=== PATIENT | female | born 1955 | race Two or more races ===

== ENCOUNTER 2025-01-19 04:24 | Inpatient (IN) | payer OTHER, MEDICAID ==
[~2025-01-19] VITALS: Ht 165.1 cm; Wt 78.5 kg
--- NOTE | 2025-01-19 04:47 | ED.PDOC ---
GI ASSESSMENT HPI Comments 69-year-old female who came to ER for GI bleed. Patient is status post hernia repair. States for the past 3 weeks, been having intermittent episodes of cramping abdominal pain, with bouts of nausea and dry heaving. States she has been constipated recently, in her bowel movement 4 days ago revealed blackish s tools. She took some laxatives to relieve her constipation, and her bowel movement last night still revealed blackish stools. Patient does have history of anemia, and she is concerned that her hemoglobin levels might be low again. Chief Complaint: GI Bleed Time Seen by MD: 04:46 Reviewed Notes: Nurses Notes Allergies: Coded Allergies: NO KNOWN ALLERGIES (Unverified , 01/19/25) Information Source: Patient Mode of Arrival: Ambulatory Timing: Hours Duration: Since onset Quality: Aching Vomitus: None Stool: Black Severity: Moderate Recent Hx of: Abdominal Surgery Pain Location: Epigastric Associated sign and symptoms: Nausea, Melena, Abdominal Pain Past Medical History PAST MEDICAL HISTORY: HTN Surgical History: Hernia Repair GENETIC COUNSELOR History: Denies all GENETIC COUNSELOR Hx Family History Family History: Reviewed,noncontributory to illness Social History Smoker: Non-Smoker Alcohol: Denies ETOH Use Drugs: Denies Drug Use Lives In: Home Constitutional: denies: chills, diaphoresis, fatigue, fever, malaise, sweats, weakness, others EENTM: denies: blurred vision, double vision, ear bleeding, ear discharge, ear drainage, ear pain, ear ringing, eye pain, eye redness, hearing loss, mouth pain, mouth swelling, nasal discharge, nose bleeding, nose congestion, nose pain, photophobia, tearing, throat pain, throat swelling, voice changes, others Respiratory: denies: cough, hemoptysis, orthopnea, SOB at rest, shortness of breath, SOB with excertion, stridor, wheezing, others Cardiovascular: denies: chest pain, dizzy spells, diaphoresis, Dyspnea on exertion, edema, irregular heart beat, left arm pain, lightheadedness, palpitations, PND, syncope, others Gastrointestinal: reports: abdominal pain, melena, nausea, others (Dry heaving); denies: abdomen distended, blood streaked bowels, constipated, diarrhea, dysphagia, difficulty swallowing, hematemesis, poor appetite, poor fluid intake, rectal bleeding, rectal pain, vomiting Genitourinary: denies: abnormal vagina bleeding, burning, dyspareunia, dysuria, flank pain, frequency, hematuria, incontinence, pain, , vagina discharge, urgency, others Neurological: denies: dizziness, fainting, headache, left sided numbness, left sided weakness, numbness, paresthesia, pre-existing deficit, right sided numbness, right sided weakness, seizure, speech problems, tingling, tremors, weakness, others Musculoskeletal: denies: back pain, gout, joint pain, joint swelling, muscle pain, muscle stiffness, neck pain, others Integumetry: denies: bruises, change in color, change in hair/nails, dryness, laceration, lesions, lumps, rash, wounds, others Allergic/Immunocompromised: denies: Difficulty Healing, Frequent Infections, Hives, Itching, others Hematologic/Lymphatic: denies: anemia, blood clots, easy bleeding, easy bruising, swollen glands, others Endocrine: denies: excessive hunger, excessive sweating, excessive thirst, excessive urination, flushing, intolerance to cold, intolerance to heat, unexplained weight gain, unexplained weight loss, others Psychiatric: denies: anxiety, bipolar disorder, depression, hopeless, panic disorder, schizophrenia, sleepless, suicidal, others Physical Exam General Appearance: No Apparent Distress, Normal HEENT: Normal ENT Inspection, Pharynx Normal, TMs Normal Neck: Full Range of Motion, Non-Tender, Normal, Normal Inspection Respiratory: Chest Non-Tender, Lungs Clear, No Accessory Muscle Use, No Respiratory Distress, Normal Breath Sounds Cardiovascular: No Edema, No JVD, No Murmur, No Gallop, Normal Peripheral Pulses, Regular Rate/Rhythm Breast Exam: Deferred Gastrointestinal: No Organomegaly, Non Tender, No Pulsatile Mass, Normal Bowel Sounds, Soft Genitalia: Deferred Pelvic: Deferred Rectal: Deferred Extremities: No calf tenderness, Normal capillary refill, Normal inspection, Normal range of motion, Non-tender, No pedal edema Musculoskeletal : Apperance: Normal Neurologic: Alert, supervisor composing room II-XII nml as Tested, No Motor Deficits, Normal Affect, Normal Mood, No Sensory Deficits Cerebellar Function: Normal Reflexes: Normal Skin: Dry, Normal Color, Warm Lymphatic: No Adenopathy Was a procedure done? Was a procedure done?: No GI differential Dx Differential Diagnosis: Diverticular disease, Gastritis/PUD, Gastroenteritis, GI hemorrhage, Hernia, UTI X-Ray, Labs, Meds, VS Vital Signs Date Time Temp Pulse Resp B/P (MAP) Pulse Ox O2 Delivery O2 Flow Rate FiO2 01/19/25 07:33 97.9 70 18 131/82 (98) 95 97.9 01/19/25 05:45 Room Air* 0 21 01/19/25 05:30 97.9 88 18 142/83 (102) 95 97.9 01/19/25 04:26 97.6 81 18 145/82 95 97.6 Lab Test 01/19/25 06:16 01/19/25 05:06 Range/Units Urine Color Light-yellow Yellow Urine Clarity Clear Clear Urine pH 6.5 5.0-9.0 Urine Specific [place] 1.010 1.001-1.035 Urine Protein Negative Negative Urine Ketones Negative Negative Urine Blood Negative Negative /uL Urine Nitrite Negative Negative Urine Bilirubin Negative Negative Urine Urobilinogen Normal Negative mg/dL Urine Leukocyte Esterase Negative Negative /uL Urine RBC <1 0 - 4 /hpf Urine Microscopic WBC 1 0-5 /HPF Urine Squamous Epithelial Cells Few <5 /hpf Urine Bacteria None seen None Seen /hpf Urine Glucose Normal Normal mg/dL White Blood Count 8.0 4.4-10.8 10^3/uL Red Blood Count 4.44 4.0-5.20 10^6/uL Hemoglobin 14.0 12.2-16.2 g/dL Hematocrit 40.2 36.0-46.0 % Mean Corpuscular Volume 90.6 80.0-100.0 fL Mean Corpuscular Hemoglobin 31.6 28.0-32.0 pg Mean Corpuscular Hemoglobin Concent 34.9 32.0-36.0 g/dL Red Cell Distribution Width 13.0 11.8-14.3 % Platelet Count 324 140-450 10^3/uL Mean Platelet Volume 7.7 6.9-10.8 fL Neutrophils (%) (Auto) 72.2 37.0-80.0 % Lymphocytes (%) (Auto) 18.4 10.0-50.0 % Monocytes (%) (Auto) 7.6 0.0-12.0 % Eosinophils (%) (Auto) 1.2 0.0-7.0 % Basophils (%) (Auto) 0.6 0.0-2.0 % Neutrophils # (Auto) 5.8 1.6-8.6 10 ^3/uL Lymphocytes # (Auto) 1.5 0.4-5.4 10 ^3/uL Monocytes # (Auto) 0.6 0-1.3 10 ^3/uL Eosinophils # (Auto) 0.1 0-0.8 10 ^3/uL Basophils # (Auto) 0 0-0.2 10 ^3/uL Nucleated Red Blood Cells 0.0 % Prothrombin Time 10.5 9.3-11.8 sec Prothrombin Time INR 0.99 0.9-1.15 Activated Partial Thromboplast Time 26.0 24.5-34.5 SEC Sodium Level 139 136-145 mmol/L Potassium Level 3.2 L 3.5-5.1 mmol/L Chloride Level 101 98-107 mmol/L Carbon Dioxide Level 29 20-31 mmol/L Anion Gap 9 5-15 Blood Urea Nitrogen 15 9-23 mg/dL Creatinine 0.58 0.550-1.02 mg/dL Glomerular Filtration Rate Calc 99 >90 mL/min BUN/Creatinine Ratio 25.9 H 10.0-20.0 Serum Glucose 107 H 74-106 mg/dL Calcium Level 9.4 8.7-10.4 mg/dL Total Bilirubin 0.3 0.2-1.0 mg/dL Aspartate Amino Transferase (AST) 13 13-40 U/L Alanine Aminotransferase (ALT) 14 7-40 U/L Alkaline Phosphatase 89 46-116 U/L Total Protein 7.1 5.7-8.2 g/dL Albumin 4.6 3.2-4.8 g/dL Lipase 26 12-53 U/L Current Medications Medications (Trade) Dose Ordered Sig/Lilian Route Start Time Stop Time Status Last Admin Sodium Chloride 1,000 ml @ 1,000 mls/hr Q1H ONCE IVB 01/19/25 04:45 01/19/25 05:44 DC 01/19/25 05:25 X-Ray, Labs, Meds, VS Comment This 70-year-old male presents to emergency room secondary to abdominal distention and a history of GI bleeding. On today's CT, she is noted to have a 3.6 x 3.4 x 3.5 cm questionable mass at the cecum with cecal inflammation. I am concerned the patient has cancer. Considering the severity of her symptoms and the size of the mass, I will admit the patient further workup and management. Time of 1ST Reevaluation: 04:37 Reevaluation 1ST: Unchanged Patient Education/Counseling: Diagnosis, Treatment Family Education/Counseling: No Family Present SEPSIS Sepsis Screen Date sepsis recognized/suspect: Jan 19, 2025 Time Sepsis recognized/suspect: 425 Recent Procedure: No On Antibiotic Therapy: No Respiratory Rate >20: No Heart Rate >90: No Temp<36 C (96.8 F) or >38.3 C: No SBP <90 or MAP <65 mmHG: No New Acute Mental Status Change: No Is the patient on CPAP, BIPAP,: No Physician Orders Ct Ab Pel With Iv Con Only (01/19/25 04:41) Vital Signs Date Time Temp Pulse Resp B/P (MAP) Pulse Ox O2 Delivery O2 Flow Rate FiO2 01/19/25 07:33 97.9 70 18 131/82 (98) 95 97.9 01/19/25 05:45 Room Air* 0 21 01/19/25 05:30 97.9 88 18 142/83 (102) 95 97.9 01/19/25 04:26 97.6 81 18 145/82 95 97.6 Laboratory Tests Test 01/19/25 05:06 White Blood Count 8.0 10^3/uL (4.4-10.8) Medications Medications Dose Ordered Sig/Lilian Route Start Time Stop Time Status Last Admin Dose Admin Sodium Chloride 1,000 ml @ 1,000 mls/hr Q1H ONCE IVB 01/19/25 04:45 01/19/25 05:44 DC 01/19/25 05:25 Departure 1 Departure Time of Disposition: 07:52 Impression: Primary Impression: Black stools Additional Impressions: Lower abdominal pain Cecum mass Disposition: ADMITTED INPATIENT Admit to: Med Surg Condition: Fair Critical Care Note Critical Care Time?: No Stability Stability form required: No Heart Score Heart Score: Heart Score Response (Comments) Value History N/A 0 EKG N/A 0 Age N/A 0 Risk Factors N/A 0 Troponin N/A 0 Total 0 I personally scribed for JUDSON CROSS MD ([email or web address]) on 01/19/25 at 04:47. Electronically submitted by Moreno Campbell ([email or web address]). JUDSON CROSS MD Jan 19, 2025 04:47 MINA CLANCY MD Jan 19, 2025 07:54
[2025-01-19] MEDS: SODIUM CHLORIDE 0.9% 1,000 ML IVB ONE (05:25)
[2025-01-19 05:27] LABS: Hematocrit 40.2 % (36.0-46.0); Hemoglobin 14.0 g/dL (12.2-16.2); Mean Corpuscular Hemoglobin 31.6 pg (28.0-32.0); Mean Corpuscular Volume 90.6 fL (80.0-100.0); Nucleated Red Blood Cells % 0.0 %
[2025-01-19 05:40] LABS: INR 0.99 (0.9-1.15); Partial Thromboplastin Time 26.0 SEC (24.5-34.5); Prothrombin Time 10.5 sec (9.3-11.8)
[2025-01-19 05:55] LABS: Alanine Aminotransferase 14 U/L (7-40); Albumin 4.6 g/dL (3.2-4.8); Alkaline Phosphatase 89 U/L (46-116); Anion Gap 9 (5-15); BUN/Creatinine Ratio 25.9 (10.0-20.0); Bilirubin, Total 0.3 mg/dL (0.2-1.0); Blood Urea Nitrogen 15 mg/dL (9-23); Calcium 9.4 mg/dL (8.7-10.4); Carbon Dioxide 29 mmol/L (20-31); Chloride 101 mmol/L (98-107); Glucose 107 mg/dL (74-106); Lipase 26 U/L (12-53); Potassium 3.2 mmol/L (3.5-5.1); Sodium 139 mmol/L (136-145); Total Protein 7.1 g/dL (5.7-8.2)
[2025-01-19] MEDS: IOHEXOL 300 MG/ML 100ML BOTTLE IJ ONE (06:07)
[2025-01-19 06:23] LABS: Urine Protein, UAD Negative (Negative)
--- NOTE | 2025-01-19 07:11 | DVH ---
CT CT AB PEL WITH IV CON ONLY INDICATION: lower abd pain, melena EXAM DATE: 01/19/2025 06:28 AM COMPARISON: None RADIATION DOSE: CTDIvol: 10 mGy, DLP: 586 mGy*cm PROCEDURE: Helical CT images were obtained of the abdomen and pelvis with IV contrast Sagittal and co gareme reconstructions are provided. ORAL CONTRAST: None. ADDITIONAL IMAGES / REFORMATS: None All CT s cans at this medical facility are performed using dose modulation techniques as appropriate to a perf ormed exam including the following: Automated exposure control was utilized; adjustment of the MA and /or KV according to patient size; and use of iterative reconstruction technique. FINDINGS: LUNG BASE: 4 mm nodule at the lingula. LIVER: Normal. GALLBLADDER AND BILIARY TREE: No calcified gallstones. Normal caliber wall. No intra- or extrahepatic biliary ductal dilation. PANCREAS: Normal. SPLEEN: Normal. BOWEL: 3.6 x 3.4 x 3.5 cm questionable mass at the cecum with cecal inflammation. ADRENALS: Normal. KIDNEYS AND URETER: Mild right hydronephrosis without stone seen. BLADDER: Normal. REPRODUCTIVE ORGANS: Absent uterus. LYMPH NODES:No lymphadenopathy. PERITONEUM: No ascites or free air. No other fluid collection. VESSELS: Scattered atherosclerotic calcifications are noted. RETROPERITONEUM: Normal. ABDOMINAL WALL: Normal. BONES: Scattered osseous degenerative changes are noted. IMPRESSION: 3.6 x 3.4 x 3.5 cm questionable mass at the cecum with cecal inflammation. Mild right hydronephrosis without stone seen.
[2025-01-19] MEDS: MORPHINE SULFATE 4 MG/ML SYR/VIAL IV ONE (07:21)
[2025-01-19] MEDS: ONDANSETRON HCL 4 MG/2 ML VIAL IV ONE (07:21)
--- NOTE | 2025-01-19 09:35 | DVHHPRES ---
History of Present Illness Resident Creating Document: AYLIN TIRADO RESIDENT History of Present Illness Ms Carrasquillo is a 69-year-old female with hiatal hernia repair 1 year back, SLE in remission, hypertension, hyperlipidemia fibromyalgia, degenerative disc disease and chronic back pain, neuropathic, who presented to the ER with a chief complaint of semi-solid tarry black stools for the past 4 days along with weight loss for the past 3 weeks. Patient reports lower abdominal diffuse pain for the past 3 weeks, crampy in nature, she also had a urinary infection 2 weeks back, patient thought it was a flu infection, but she developed generalized weakness, fatigue, low appetite and weight loss of about 8 lb in the past 3 weeks. She has a history of chronic constipation, reports noticing tarry black stools for the past 4-5 days, she reports low-grade fever and chills 1 week back. No recent travel history or sick contacts Patient had hiatal hernia surgery 1 year back with [facility] [place] Last colonoscopy was April 20, 2023, 1 8 mm polyp in the ascending colon, 1 3 mm polyp in the rectum, nonbleeding internal hemorrhoids, patient is unaware of pathology results Past medical history: SLE in remission, hypertension, hyperlipidemia fibromyalgia, degenerative disc disease and chronic back pain, neuropathic pain Past surgical history: Hiatal hernia repair 1 year back Home medications: Atorvastatin, hydrochlorothiazide, magnesium supplementation PCP: Dr. Henderson Social history: Lives with , Quit smoking at the age of 52, previously smoked 1 cigarette every other day, quit drinking but previously would drink every night, no history of drug use Family history: Colon cancer diagnosed in father at the age of 85, father at the age of 86 due to metastatic colon cancer Patient seen and examined in ER, rectal exam performed, internal hemorrhoids, nonbleeding, stool was dark brown, sent to lab for stool occult. Smoke: Quit ALCOHOL: none Drugs: None Lives: with Family Review of Systems Constitutional: Yes: Fever, Chills, Weakness, Malaise Gastrointestinal: Abdominal Pain, Constipation, Melena Allergies: Coded Allergies: NO KNOWN ALLERGIES (Unverified , 01/19/25) Exam Vital Signs Vital Signs Date Time Temp Pulse Resp B/P (MAP) Pulse Ox O2 Delivery O2 Flow Rate FiO2 01/19/25 07:33 97.9 70 18 131/82 (98) 95 97.9 01/19/25 05:45 Room Air* 0 21 Exam Overweight female patient lying comfortably in the bed, patient has a bit anxious General: Overweight, afebrile, palor, mucosae are moist Cardiovascular: Regular S1 and S2. No murmurs, gallops or rubs. No JVD elevation. No pedal edema Respiratory: Normal B/L air entry on room air. Clear lung sounds on auscultation Abdomen: Soft, lower abdominal tenderness, nondistended, normoactive bowel sounds, no rebound tenderness, no organomegaly, no masses. Rectal exam performed with nurse Alfred as wreath machine tender, internal hemorrhoids felt, nonbleeding, dark brown stool sent for stool occult, no masses felt, no active bleeding. Genitourinary: Deferred MSK/skin: Mobilizes 4 limbs. Skin is dry and warm Neurological: No motor, no sensitive deficits, normal speech. Pupils are isocoric and reactive. Psych/Mental Status: A/Ox3 Labs/Xrays Labs Test 01/19/25 06:16 01/19/25 05:06 Range/Units Urine Color Light-yellow Yellow Urine Clarity Clear Clear Urine pH 6.5 5.0-9.0 Urine Specific [place] 1.010 1.001-1.035 Urine Protein Negative Negative Urine Ketones Negative Negative Urine Blood Negative Negative /uL Urine Nitrite Negative Negative Urine Bilirubin Negative Negative Urine Urobilinogen Normal Negative mg/dL Urine Leukocyte Esterase Negative Negative /uL Urine RBC <1 0 - 4 /hpf Urine Microscopic WBC 1 0-5 /HPF Urine Squamous Epithelial Cells Few <5 /hpf Urine Bacteria None seen None Seen /hpf Urine Glucose Normal Normal mg/dL White Blood Count 8.0 4.4-10.8 10^3/uL Red Blood Count 4.44 4.0-5.20 10^6/uL Hemoglobin 14.0 12.2-16.2 g/dL Hematocrit 40.2 36.0-46.0 % Mean Corpuscular Volume 90.6 80.0-100.0 fL Mean Corpuscular Hemoglobin 31.6 28.0-32.0 pg Mean Corpuscular Hemoglobin Concent 34.9 32.0-36.0 g/dL Red Cell Distribution Width 13.0 11.8-14.3 % Platelet Count 324 140-450 10^3/uL Mean Platelet Volume 7.7 6.9-10.8 fL Neutrophils (%) (Auto) 72.2 37.0-80.0 % Lymphocytes (%) (Auto) 18.4 10.0-50.0 % Monocytes (%) (Auto) 7.6 0.0-12.0 % Eosinophils (%) (Auto) 1.2 0.0-7.0 % Basophils (%) (Auto) 0.6 0.0-2.0 % Neutrophils # (Auto) 5.8 1.6-8.6 10 ^3/uL Lymphocytes # (Auto) 1.5 0.4-5.4 10 ^3/uL Monocytes # (Auto) 0.6 0-1.3 10 ^3/uL Eosinophils # (Auto) 0.1 0-0.8 10 ^3/uL Basophils # (Auto) 0 0-0.2 10 ^3/uL Nucleated Red Blood Cells 0.0 % Prothrombin Time 10.5 9.3-11.8 sec Prothrombin Time INR 0.99 0.9-1.15 Activated Partial Thromboplast Time 26.0 24.5-34.5 SEC Sodium Level 139 136-145 mmol/L Potassium Level 3.2 L 3.5-5.1 mmol/L Chloride Level 101 98-107 mmol/L Carbon Dioxide Level 29 20-31 mmol/L Anion Gap 9 5-15 Blood Urea Nitrogen 15 9-23 mg/dL Creatinine 0.58 0.550-1.02 mg/dL Glomerular Filtration Rate Calc 99 >90 mL/min BUN/Creatinine Ratio 25.9 H 10.0-20.0 Serum Glucose 107 H 74-106 mg/dL Calcium Level 9.4 8.7-10.4 mg/dL Total Bilirubin 0.3 0.2-1.0 mg/dL Aspartate Amino Transferase (AST) 13 13-40 U/L Alanine Aminotransferase (ALT) 14 7-40 U/L Alkaline Phosphatase 89 46-116 U/L Total Protein 7.1 5.7-8.2 g/dL Albumin 4.6 3.2-4.8 g/dL Lipase 26 12-53 U/L SEPSIS Sepsis Screen Date sepsis recognized/suspect: Jan 19, 2025 Time Sepsis recognized/suspect: 425 Recent Procedure: No On Antibiotic Therapy: No Respiratory Rate >20: No Heart Rate >90: No Temp<36 C (96.8 F) or >38.3 C: No SBP <90 or MAP <65 mmHG: No New Acute Mental Status Change: No Is the patient on CPAP, BIPAP,: No Physician Orders Ct Ab Pel With Iv Con Only (01/19/25 04:41) Vital Signs Date Time Temp Pulse Resp B/P (MAP) Pulse Ox O2 Delivery O2 Flow Rate FiO2 01/19/25 07:33 97.9 70 18 131/82 (98) 95 97.9 01/19/25 05:45 Room Air* 0 21 01/19/25 05:30 97.9 88 18 142/83 (102) 95 97.9 01/19/25 04:26 97.6 81 18 145/82 95 97.6 Laboratory Tests Test 01/19/25 05:06 White Blood Count 8.0 10^3/uL (4.4-10.8) Medications Medications Dose Ordered Sig/Lilian Route Start Time Stop Time Status Last Admin Dose Admin Sodium Chloride 1,000 ml @ 1,000 mls/hr Q1H ONCE IVB 01/19/25 04:45 01/19/25 05:44 DC 01/19/25 05:25 1,000 MLS/HR Assessment/Plan Assessment/Plan Ruled out active GI bleed ? Cecal mass 3x3cm Nonbleeding internal hemorrhoids history of descending colon 8 mm and rectal 3 mm polyp-path results unknown Unintentional weight loss Generalized weakness Chronic constipation CT abdomen with IV contrast showed 3.6 x 3.4 x 3.5 cm questionable mass at the cecum with cecal inflammation. GI consultation pending IV Protonix b.i.d. NPO IV NS 1 L at 75 cc Right-sided hydronephrosis CT abdomen with IV contrast showed Mild right hydronephrosis without stone seen. 1 L IV NS 0.9 at 75 cc Monitor kidney function Hypertension Holding patient's hydrochlorothiazide at this time given GI bleed History of dyslipidemia Resume home medication atorvastatin History of fibromyalgia History of degenerative disc disease and neuropathic pain History of SLE-in remission Monitor Lovenox 40 mg sc daily Plan discussed with patient in ER, all questions have been answered Goals of care discussed for more than 18 minutes, full code status Case discussed with Dr. Portillo Plan discussed with: Patient Date of Service: Jan 19, 2025 Billing Provider: SUSHIL PORTILLO MD Common Visit Codes: 05043-[id number] INP/OBS CARE (HIGH) AYLIN TIRADO Jan 19, 2025 09:35 SUSHIL PORTILLO MD Jan 23, 2025 11:40
[2025-01-19] MEDS: SODIUM CHLORIDE 0.9% 1,000 ML IV ONE (09:45)
[2025-01-19] MEDS: PANTOPRAZOLE 40 MG/10 ML VIAL INJ IV ONE (09:50)
[2025-01-19] MEDS: PANTOPRAZOLE 40 MG/10 ML VIAL INJ IV SCH (09:50)
[2025-01-19] MEDS ORDERED: MORPHINE SULFATE INJ 2 MG/ml SYRG IV PRN (10:00)
[2025-01-19] MEDS ORDERED: ACETAMINOPHEN 500 MG TAB or CAP PO PRN (10:00)
[2025-01-19] MEDS ORDERED: HYDROcodone-ACET 5/325MG TAB PO PRN (10:00)
[2025-01-19 14:37] LABS: Amphetamine Screen, Urine Neg (NEGATIVE); Barbiturate Scree,Urine Neg (NEGATIVE); Benzodiazephine Screen, Urine Neg (NEGATIVE); Cannabinoid Screen, Urine Neg (NEGATIVE); Cocaine Screen, Urine Neg (NEGATIVE); Opiate Scree,Urine Neg (NEGATIVE); Phencyclidine Screen, Urine Neg (NEGATIVE)
[2025-01-19 14:46] LABS: INR 1.0 (0.9-1.15); Partial Thromboplastin Time 25.5 SEC (24.5-34.5); Prothrombin Time 10.6 sec (9.3-11.8)
[2025-01-19] MEDS: POTASSIUM CHL 20MEQ/100ML 100 ML IV ONE (15:00)
[2025-01-19 15:33] VITALS: BP 139/67; PULSE 73; RESP 18
[2025-01-19] MEDS ORDERED: CHOLTAB12 PO (15:37)
[2025-01-19] MEDS ORDERED: PHYT100T PO (15:37)
[2025-01-19] MEDS ORDERED: MAGN400T40 PO (15:37)
[2025-01-19] MEDS ORDERED: MILK1000 OR (15:37)
[2025-01-19] MEDS ORDERED: ATOR20TA PO (15:37)
[2025-01-19] MEDS ORDERED: CYAN-17 PO (15:37)
[2025-01-19] MEDS ORDERED: HYDR12.59 PO (15:37)
[2025-01-19] MEDS ORDERED: DOCU-94 PO (15:37)
[2025-01-19 17:00] VITALS: BP 126/61; PULSE 62; RESP 18; TEMP 98.8; O2SAT 96
[2025-01-19 20:00] VITALS: PULSE 76; RESP 18; O2SAT 95
[2025-01-19 21:00] VITALS: BP 119/83; PULSE 58; RESP 17; TEMP 98.1; O2SAT 95
[2025-01-20 01:00] VITALS: BP 120/69; PULSE 76; RESP 18; TEMP 99.3; O2SAT 95
[2025-01-20 05:00] VITALS: BP 120/70; PULSE 82; RESP 18; TEMP 98.4; O2SAT 94
[2025-01-20 05:28] LABS: COVID19 ANTIGEN SOFIA FIA NEGATIVE (NEGATIVE)
[2025-01-20 08:11] LABS: Hematocrit 35.9 % (36.0-46.0); Hemoglobin 12.7 g/dL (12.2-16.2); Mean Corpuscular Hemoglobin 31.9 pg (28.0-32.0); Mean Corpuscular Volume 90.1 fL (80.0-100.0); Nucleated Red Blood Cells % 0.0 %
[2025-01-20 08:25] LABS: Alanine Aminotransferase 12 U/L (7-40); Albumin 4.1 g/dL (3.2-4.8); Alkaline Phosphatase 84 U/L (46-116); Anion Gap 9 (5-15); BUN/Creatinine Ratio 17.0 (10.0-20.0); Blood Urea Nitrogen 9 mg/dL (9-23); Calcium 9.0 mg/dL (8.7-10.4); Carbon Dioxide 26 mmol/L (20-31); Chloride 105 mmol/L (98-107); Glucose 84 mg/dL (74-106); Potassium 3.5 mmol/L (3.5-5.1); Sodium 140 mmol/L (136-145); Total Protein 6.2 g/dL (5.7-8.2)
[2025-01-20 08:26] LABS: Bilirubin, Total 0.3 mg/dL (0.2-1.0)
[2025-01-20 08:40] VITALS: BP 132/74; PULSE 57; RESP 18; TEMP 97.6; O2SAT 96
[2025-01-20] MEDS: ENOXAPARIN SOD 40 MG/0.4 ML SYRINGE SC SCH (08:54)
--- NOTE | 2025-01-20 10:16 | DVHPN2 ---
Progress Note Date Seen: Jan 20, 2025 Medical Necessity Reason Pt with a Central, PICC or Fol: No Objective vital signs Vital Sign Date Time Temp Pulse Resp B/P (MAP) Pulse Ox O2 Delivery O2 Flow Rate FiO2 01/20/25 08:40 97.6 57 18 132/74 (93) 96 97.6 01/20/25 08:00 Room Air* 0 21 Total Intake and Output 01/19/25 01/19/25 01/20/25 14:59 22:59 06:59 Intake Total 0 ml 200 ml Balance 0 ml 200 ml medications Current Medications Medications Dose Ordered Sig/Lilian Route Start Time Stop Time Status Last Admin Dose Admin Pantoprazole Sodium 40 mg BID IV 01/19/25 10:00 01/20/25 08:56 40 MG Enoxaparin Sodium 40 mg DAILY SC 01/20/25 10:00 Acetaminophen 500 mg Q4HPRN PRN PO 01/19/25 10:00 Acetaminophen/ Hydrocodone Bitart 1 tab Q4HPRN PRN PO 01/19/25 10:00 Morphine Sulfate 1 mg Q4HPRN PRN IV 01/19/25 10:00 laboratory and microbiology Laboratory Tests 01/20/25 05:28 Test 01/20/25 05:28 Range/Units Serum Glucose 84 74-106 mg/dL Problem List/Assessment/Plan Problem List/Assessment/Plan 01/20/25 69 YEAR OLD FEMALE WITH ANEMIA AND CT REPORTED POSSIBLE CECAL MASS. AWAITING COLONOSCOPY, CONVERSATION WITH PATIENT, NO EXAMINATION, HAVE EXPLAINED PROCESS AND POSSIBLE OPERATION DEPENDING ON FINDINGS. CONSULT WILL FOLLOW COLONOSCOPY. Plan discussed with: Patient, Son DEMETRICE MATT MD Jan 20, 2025 10:16
[2025-01-20] MEDS: cefTRIAXone 1GM/50ML D5W 50 ML IV ONE (11:12)
[2025-01-20 12:57] VITALS: BP 140/87; PULSE 67; RESP 18; TEMP 97.1; O2SAT 96
--- NOTE | 2025-01-20 14:51 | DVHPN2 ---
Subjective Patient doing well, no pain, seen at bedside today Reviewed: Care Plan Changes from previous H/P or p: No Changes General: Per HPI Gastrointestinal: Abdominal Pain, Constipation, Melena Objective Vitals Vital Signs Date Time Temp Pulse Resp B/P (MAP) Pulse Ox O2 Delivery O2 Flow Rate FiO2 01/20/25 12:57 97.1 67 18 140/87 (104) 96 97.1 01/20/25 08:00 Room Air* 0 21 Intake/Output Intake and Output 01/20/25 07:00 Intake Total 200 ml Balance 200 ml Intake Oral 200 ml # Voids 2 Exam GEN: Healthy appearing, well-developed, NAD. HEENT: NC/AT; MMM. CV: RRR, no m/r/g. LUNGS: CTAB, no w/r/c. ABD: Soft, NT/ND, NBS, no masses or organomegaly. EXT: skin Warm, well perfused. no rashes. No clubbing, cyanosis, or edema. NEURO: Ambulating with no limitations. No focal deficits. Medications Current Medications Medications Dose Ordered Sig/Lilian Route Start Time Stop Time Status Last Admin Dose Admin Pantoprazole Sodium 40 mg BID IV 01/19/25 10:00 01/20/25 08:56 40 MG Enoxaparin Sodium 40 mg DAILY SC 01/20/25 10:00 Acetaminophen 500 mg Q4HPRN PRN PO 01/19/25 10:00 Acetaminophen/ Hydrocodone Bitart 1 tab Q4HPRN PRN PO 01/19/25 10:00 Morphine Sulfate 1 mg Q4HPRN PRN IV 01/19/25 10:00 Ceftriaxone Sodium 50 ml @ 100 mls/hr DAILY@09 IV 01/21/25 09:00 Laboratory Results Laboratory Tests 01/20/25 05:28 Chemistry Test 01/20/25 05:28 Albumin 4.1 g/dL (3.2-4.8) Calcium Level 9.0 mg/dL (8.7-10.4) Total Protein 6.2 g/dL (5.7-8.2) LFT Test 01/20/25 05:28 Alanine Aminotransferase (ALT) 12 U/L (7-40) Alkaline Phosphatase 84 U/L (46-116) Aspartate Amino Transferase (AST) 13 U/L (13-40) Total Bilirubin 0.3 mg/dL (0.2-1.0) Urinalysis Test 01/19/25 06:16 Urine Color Light-yellow (Yellow) Urine Clarity Clear (Clear) Urine pH 6.5 (5.0-9.0) Urine Specific [place] 1.010 (1.001-1.035) Urine Protein Negative (Negative) Urine Ketones Negative (Negative) Urine Blood Negative /uL (Negative) Urine Nitrite Negative (Negative) Urine Bilirubin Negative (Negative) Urine Urobilinogen Normal mg/dL (Negative) Urine Leukocyte Esterase Negative /uL (Negative) Urine RBC <1 /hpf (0 - 4) Urine Microscopic WBC 1 /HPF (0-5) Urine Squamous Epithelial Cells Few /hpf (<5) Urine Bacteria None seen /hpf (None Seen) Urine Glucose Normal mg/dL (Normal) Labs and/or images reviewed: Labs reviewed by me, Image(s) reviewed by me Assessment/Plan Assessment/Plan Ms Carrasquillo is a 69-year-old female with hiatal hernia repair 1 year back, SLE in remission, hypertension, hyperlipidemia fibromyalgia, degenerative disc disease and chronic back pain, neuropathic, who presented to the ER with a chief complaint of semi-solid tarry black stools for the past 4 days along with weight loss for the past 3 weeks. Patient reports lower abdominal diffuse pain for the past 3 weeks, crampy in nature, she also had a urinary infection 2 weeks back, patient thought it was a flu infection, but she developed generalized weakness, fatigue, low appetite and weight loss of about 8 lb in the past 3 weeks. She has a history of chronic constipation, reports noticing tarry black stools for the past 4-5 days, she reports low-grade fever and chills 1 week back. No recent travel history or sick contacts Patient had hiatal hernia [facility] year back [facility] [place] Last colonoscopy was April 20, 2023, 1 8 mm polyp in the ascending colon, 1 3 mm polyp in the rectum, nonbleeding internal hemorrhoids, patient is unaware of pathology results Diagnosis: Lower GI bleed, rule out active bleed Cecal mass 3 x 3 cm Internal hemorrhoids History of colonic and rectal polyps Nonbleeding internal hemorrhoids history of descending colon 8 mm and rectal 3 mm polyp-path results unknown Unintentional weight loss Generalized weakness Chronic constipationRight-sided hydronephrosis Hypertension History of dyslipidemia History of fibromyalgia History of degenerative disc disease and neuropathic pain History of SLE-in remission Plan: - Plan for GI to take for colonoscopy /sigmoidoscopy on 01/22 or 01/23. -CT abdomen with IV contrast showed 3.6 x 3.4 x 3.5 cm questionable mass at the cecum with cecal inflammation. -IV Protonix b.i.d. -NPO -IV NS 1 L at 75 cc -continue other home medications, Lipitor. Hold home hydrochlorothiazide - hold anticoagulation as risk for bleed. Med surge Full code Plan discussed with: Patient Date of Service: Jan 20, 2025 Billing Provider: SENDY FARRELL MD Common Visit Codes: [id number] INP/OBS CARE(HIGH) SENDY FARRELL MD Jan 20, 2025 14:51
[2025-01-20 17:00] VITALS: BP 117/69; PULSE 70; RESP 18; TEMP 97.2; O2SAT 97
--- NOTE | 2025-01-20 17:53 | DVHINCON2 ---
Date of service: Jan 20, [address] Ledesma Reason for Consultation Abnormal finding GI tract imaging History of Present Illness Ms Carrasquillo is a 69-year-old female with hiatal hernia repair 1 year back, SLE in remission, hypertension, hyperlipidemia fibromyalgia, degenerative disc disease and chronic back pain, neuropathic, who presented to the ER with a chief complaint of semi-solid tarry black stools for the past 4 days along with weight loss for the past 3 weeks. Patient reports lower abdominal diffuse pain for the past 3 weeks, crampy in nature, she also had a urinary infection 2 weeks back, patient thought it was a flu infection, but she developed generalized weakness, fatigue, low appetite and weight loss of about 8 lb in the past 3 weeks. She has a history of chronic constipation, reports noticing tarry black stools for the past 4-5 days, she reports low-grade fever and chills 1 week back. Last colonoscopy was April 20, 2023, 1 8 mm polyp in the ascending colon, 1 3 mm polyp in the rectum, nonbleeding internal hemorrhoids, patient is unaware of pathology results Past Medical History Past medical history: SLE in remission, hypertension, hyperlipidemia fibromyalgia, degenerative disc disease and chronic back pain, neuropathic pain Past Surgical History Past surgical history: Hiatal hernia repair 1 year back Family History: Colon cancer G8 FATHER FH: prostate cancer G8 BROTHER FH: uterine cancer G8 MOTHER Social History Home medications: Atorvastatin, hydrochlorothiazide, magnesium supplementation Social history: Lives with , Quit smoking at the age of 52, previously smoked 1 cigarette every other day, quit drinking but previously would drink every night, no history of drug use Family history: Colon cancer diagnosed in father at the age of 85, father at the age of 86 due to metastatic colon cancer Allergies: Coded Allergies: NO KNOWN ALLERGIES (Unverified , 01/19/25) Home Meds Reported Medications Atorvastatin Calcium (Lipitor) 20 Mg Tab, 1 TAB PO DAILY, #90 TAB 1 Refill 01/19/25 Cholecalciferol (D3) 50 Mcg Tab, 50 MCG PO, TAB 01/19/25 Hydrochlorothiazide (Hydrochlorothiazide) 12.5 Mg Cap, 1 CAP PO DAILY, #30 CAP 5 Refills 01/19/25 Phytonadione (Vitamin K) 100 Mcg Tab, 100 MCG PO, TAB 01/19/25 Magnesium Oxide (MAGNESIUM OXIDE) 400 Mg Tab, 1 TAB PO DAILY, #30 TAB 5 Refills 01/19/25 Milk Thistle (Silybum Marianum (MILK THISTLE) 1,000 Mg Cap, 1000 MG OR, CAP 01/19/25 Cyanocobalamin (B12) 1,000 Mcg Cap, 1000 MCG PO, CAP 01/19/25 Docusate Sodium (Colace) 100 Mg Cap, 100 CAP PO BID, #30 CAP 01/19/25 Current Medications Current Medications Medications (Trade) Dose Ordered Sig/Lilian Route PRN Reason Start Time Stop Time Status Last Admin Enoxaparin Sodium (Lovenox) 40 mg DAILY SC 01/20/25 10:00 Ceftriaxone Sodium 50 ml @ 100 mls/hr DAILY@09 IV 01/21/25 09:00 Vital Signs Vital Signs Date Time Temp Pulse Resp B/P (MAP) Pulse Ox O2 Delivery O2 Flow Rate FiO2 01/20/25 17:00 97.2 70 18 117/69 (85) 97 97.2 01/20/25 08:00 Room Air* 0 21 Physical Exam General: Overweight, afebrile, palor, mucosae are moist Cardiovascular: Regular S1 and S2. No murmurs, gallops or rubs. No JVD elevation. No pedal edema Respiratory: Normal B/L air entry on room air. Clear lung sounds on auscultation Abdomen: Soft, lower abdominal tenderness, nondistended, normoactive bowel sounds, no rebound tenderness, no organomegaly, no masses. Rectal exam performed by resident internal hemorrhoids felt, nonbleeding, dark brown stool sent for stool occult, no masses felt, no active bleeding. MSK/skin: Mobilizes 4 limbs. Skin is dry and warm Neurological: No motor, no sensitive deficits, normal speech. Pupils are isoc oric and reactive. Psych/Mental Status: A/Ox3 Labs/Diagnostic Data Labs Test 01/20/25 05:28 01/20/25 04:00 01/19/25 20:00 01/19/25 15:14 Range/Units White Blood Count 8.0 4.4-10.8 10^3/uL Red Blood Count 3.98 L 4.0-5.20 10^6/uL Hemoglobin 12.7 12.2-16.2 g/dL Hematocrit 35.9 #L 36.0-46.0 % Mean Corpuscular Volume 90.1 80.0-100.0 fL Mean Corpuscular Hemoglobin 31.9 28.0-32.0 pg Mean Corpuscular Hemoglobin Concent 35.4 32.0-36.0 g/dL Red Cell Distribution Width 13.0 11.8-14.3 % Platelet Count 315 140-450 10^3/uL Mean Platelet Volume 8.0 6.9-10.8 fL Neutrophils (%) (Auto) 77.5 37.0-80.0 % Lymphocytes (%) (Auto) 12.8 10.0-50.0 % Monocytes (%) (Auto) 8.4 0.0-12.0 % Eosinophils (%) (Auto) 0.7 0.0-7.0 % Basophils (%) (Auto) 0.6 0.0-2.0 % Neutrophils # (Auto) 6.2 1.6-8.6 10 ^3/uL Lymphocytes # (Auto) 1.0 0.4-5.4 10 ^3/uL Monocytes # (Auto) 0.7 0-1.3 10 ^3/uL Eosinophils # (Auto) 0.1 0-0.8 10 ^3/uL Basophils # (Auto) 0 0-0.2 10 ^3/uL Nucleated Red Blood Cells 0.0 % Sodium Level 140 136-145 mmol/L Potassium Level 3.5 3.5-5.1 mmol/L Chloride Level 105 98-107 mmol/L Carbon Dioxide Level 26 20-31 mmol/L Anion Gap 9 5-15 Blood Urea Nitrogen 9 9-23 mg/dL Creatinine 0.53 L 0.550-1.02 mg/dL Glomerular Filtration Rate Calc 101 >90 mL/min BUN/Creatinine Ratio 17.0 10.0-20.0 Serum Glucose 84 74-106 mg/dL Calcium Level 9.0 8.7-10.4 mg/dL Total Bilirubin 0.3 0.2-1.0 mg/dL Aspartate Amino Transferase (AST) 13 13-40 U/L Alanine Aminotransferase (ALT) 12 7-40 U/L Alkaline Phosphatase 84 46-116 U/L Total Protein 6.2 5.7-8.2 g/dL Albumin 4.1 3.2-4.8 g/dL Influenza Type A Antigen Negative Negative Influenza Type B Antigen Negative Negative SARS-CoV-2 Antigen (Rapid) Negative NEGATIVE Stool Occult Blood Negative Negative Stool Occult Blood Sample #3 Negative Test 01/19/25 14:15 01/19/25 06:16 01/19/25 05:06 Range/Units Prothrombin Time 10.6 9.3-11.8 sec Prothrombin Time INR 1.00 0.9-1.15 Activated Partial Thromboplast Time 25.5 24.5-34.5 SEC Urine Color Light-yellow Yellow Urine Clarity Clear Clear Urine pH 6.5 5.0-9.0 Urine Specific [place] 1.010 1.001-1.035 Urine Protein Negative Negative Urine Ketones Negative Negative Urine Blood Negative Negative /uL Urine Nitrite Negative Negative Urine Bilirubin Negative Negative Urine Urobilinogen Normal Negative mg/dL Urine Leukocyte Esterase Negative Negative /uL Urine RBC <1 0 - 4 /hpf Urine Microscopic WBC 1 0-5 /HPF Urine Squamous Epithelial Cells Few <5 /hpf Urine Bacteria None seen None Seen /hpf Urine Glucose Normal Normal mg/dL Urine Opiates Screen Neg NEGATIVE Urine Fentanyl Screen Neg NEGATIVE Urine Barbiturates Screen Neg NEGATIVE Urine Phencyclidine Screen Neg NEGATIVE Urine Amphetamines Screen Neg NEGATIVE Urine Benzodiazepines Screen Neg NEGATIVE Urine Cocaine Screen Neg NEGATIVE Urine Cannabinoids Screen Neg NEGATIVE Hemoglobin A1c 5.4 <5.7 % A1C Magnesium Level 1.9 1.6-2.6 mg/dL Lipase 26 12-53 U/L Thyroid Stimulating Hormone (TSH) 4.34 0.55-4.78 uIU/mL CT SCAN ABD IMPRESSION: 3.6 x 3.4 x 3.5 cm questionable mass at the cecum with cecal inflammation. Mild right hydronephrosis without stone seen. Problems(with codes): (1) Lower abdominal pain (2) Black stools (3) Cecum mass Plan/Recommendation Plan Patient will be given a clear liquid diet CEA level Bowel prep on 01/21/2025 Schedule colonoscopy on 01/22/2025 or 01/2025 pending schedule availability Plan discussed with: Patient, Other (Nurse) CINDA CHEEK MD Jan 20, 2025 17:53
[2025-01-20 21:00] VITALS: BP 123/70; PULSE 74; RESP 16; TEMP 99; O2SAT 96
[2025-01-21] VITALS (7 sets, daily range): BP systolic 121–164; BP diastolic 56–84; PULSE 56–80; RESP 14–20; TEMP 97–98.6; O2SAT 91–99
[2025-01-21] MEDS: cefTRIAXone 1GM/50ML D5W 50 ML IV SCH (09:21)
--- NOTE | 2025-01-21 11:29 | DVHPN2 ---
Subjective Patient doing well, no pain, seen at bedside today Reviewed: Care Plan Changes from previous H/P or p: No Changes General: Per HPI Gastrointestinal: Abdominal Pain, Constipation, Melena Objective Vitals Vital Signs Date Time Temp Pulse Resp B/P (MAP) Pulse Ox O2 Delivery O2 Flow Rate FiO2 01/21/25 09:00 97.0 65 18 128/76 (93) 91 97.0 01/20/25 20:05 Room Air* 0 21 Intake/Output Intake and Output 01/21/25 07:00 Intake Total 1450 ml Balance 1450 ml Intake Oral 1400 ml IV Total 50 ml # Voids 5 Exam GEN: Healthy appearing, well-developed, NAD. HEENT: NC/AT; MMM. CV: RRR, no m/r/g. LUNGS: CTAB, no w/r/c. ABD: Soft, NT/ND, NBS, no masses or organomegaly. EXT: skin Warm, well perfused. no rashes. No clubbing, cyanosis, or edema. NEURO: Ambulating with no limitations. No focal deficits. Medications Current Medications Medications Dose Ordered Sig/Lilian Route Start Time Stop Time Status Last Admin Dose Admin Pantoprazole Sodium 40 mg BID IV 01/19/25 10:00 01/21/25 09:21 40 MG Enoxaparin Sodium 40 mg DAILY SC 01/20/25 10:00 Acetaminophen 500 mg Q4HPRN PRN PO 01/19/25 10:00 Acetaminophen/ Hydrocodone Bitart 1 tab Q4HPRN PRN PO 01/19/25 10:00 Morphine Sulfate 1 mg Q4HPRN PRN IV 01/19/25 10:00 Ceftriaxone Sodium 50 ml @ 100 mls/hr DAILY@09 IV 01/21/25 09:00 01/21/25 09:21 100 MLS/HR Laboratory Results Laboratory Tests 01/20/25 05:28 Urinalysis Test 01/19/25 06:16 Urine Color Light-yellow (Yellow) Urine Clarity Clear (Clear) Urine pH 6.5 (5.0-9.0) Urine Specific [place] 1.010 (1.001-1.035) Urine Protein Negative (Negative) Urine Ketones Negative (Negative) Urine Blood Negative /uL (Negative) Urine Nitrite Negative (Negative) Urine Bilirubin Negative (Negative) Urine Urobilinogen Normal mg/dL (Negative) Urine Leukocyte Esterase Negative /uL (Negative) Urine RBC <1 /hpf (0 - 4) Urine Microscopic WBC 1 /HPF (0-5) Urine Squamous Epithelial Cells Few /hpf (<5) Urine Bacteria None seen /hpf (None Seen) Urine Glucose Normal mg/dL (Normal) Labs and/or images reviewed: Labs reviewed by me, Image(s) reviewed by me Assessment/Plan Assessment/Plan Ms Carrasquillo is a 69-year-old female with hiatal hernia repair 1 year back, SLE in remission, hypertension, hyperlipidemia fibromyalgia, degenerative disc disease and chronic back pain, neuropathic, who presented to the ER with a chief complaint of semi-solid tarry black stools for the past 4 days along with weight loss for the past 3 weeks. Patient reports lower abdominal diffuse pain for the past 3 weeks, crampy in nature, she also had a urinary infection 2 weeks back, patient thought it was a flu infection, but she developed generalized weakness, fatigue, low appetite and weight loss of about 8 lb in the past 3 weeks. She has a history of chronic constipation, reports noticing tarry black stools for the past 4-5 days, she reports low-grade fever and chills 1 week back. No recent travel history or sick contacts Patient had [facility]atal hernia [facility] back [facility] [place] Last colonoscopy was April 20, 2023, 1 8 mm polyp in the ascending colon, 1 3 mm polyp in the rectum, nonbleeding internal hemorrhoids, patient is unaware of pathology results 01/21: Patient doing well, no further bloody bowel movements. Patient is anxious about the comment of mass on CT. Likely rectosigmoidoscopy tomorrow with GI. Diagnosis: Lower GI bleed, rule out active bleed Cecal mass 3 x 3 cm Internal hemorrhoids History of colonic and rectal polyps Nonbleeding internal hemorrhoids history of descending colon 8 mm and rectal 3 mm polyp-path results unknown Unintentional weight loss Generalized weakness Chronic constipationRight-sided hydronephrosis Hypertension History of dyslipidemia History of fibromyalgia History of degenerative disc disease and neuropathic pain History of SLE-in remission Plan: - Plan for GI to take for colonoscopy /sigmoidoscopy on 01/22 or 01/23. -CT abdomen with IV contrast showed 3.6 x 3.4 x 3.5 cm questionable mass at the cecum with cecal inflammation. -IV Protonix b.i.d. -NPO -IV NS 1 L at 75 cc -continue other home medications, Lipitor. Hold home hydrochlorothiazide - hold anticoagulation as risk for bleed. Med surge Full code Plan discussed with: Patient Date of Service: Jan 21, 2025 Billing Provider: SENDY FARRELL MD Common Visit Codes: [id number] INP/OBS CARE(HIGH) SENDY FARRELL MD Jan 21, 2025 11:29
--- NOTE | 2025-01-21 12:59 | DVHPN2 ---
Subjective No new complaints Reviewed: Care Plan Changes from previous H/P or p: No Changes General: Per HPI Gastrointestinal: Abdominal Pain, Constipation, Melena Objective Vitals Vital Signs Date Time Temp Pulse Resp B/P (MAP) Pulse Ox O2 Delivery O2 Flow Rate FiO2 01/21/25 12:26 97.6 61 16 137/83 (101) 96 97.6 01/21/25 07:45 Room Air* 0 21 Intake/Output Intake and Output 01/21/25 07:00 Intake Total 1450 ml Balance 1450 ml Intake Oral 1400 ml IV Total 50 ml # Voids 5 General Appearance: Alert, Oriented X3, No acute distress Lungs: Clear to auscultation, Normal air movement, Other Cardiovascular: Regular rate, Normal S1, Normal S2, No murmurs, Gallops, Rubs, Other Abdomen: Normal bowel sounds, Soft, No tenderness, No hepatospenomegaly, No masses, Other Medications Current Medications Medications Dose Ordered Sig/Lilian Route Start Time Stop Time Status Last Admin Dose Admin Pantoprazole Sodium 40 mg BID IV 01/19/25 10:00 01/21/25 09:21 40 MG Acetaminophen 500 mg Q4HPRN PRN PO 01/19/25 10:00 Acetaminophen/ Hydrocodone Bitart 1 tab Q4HPRN PRN PO 01/19/25 10:00 Morphine Sulfate 1 mg Q4HPRN PRN IV 01/19/25 10:00 Ceftriaxone Sodium 50 ml @ 100 mls/hr DAILY@09 IV 01/21/25 09:00 01/21/25 09:21 100 MLS/HR Laboratory Results Laboratory Tests 01/20/25 05:28 Urinalysis Test 01/19/25 06:16 Urine Color Light-yellow (Yellow) Urine Clarity Clear (Clear) Urine pH 6.5 (5.0-9.0) Urine Specific [place] 1.010 (1.001-1.035) Urine Protein Negative (Negative) Urine Ketones Negative (Negative) Urine Blood Negative /uL (Negative) Urine Nitrite Negative (Negative) Urine Bilirubin Negative (Negative) Urine Urobilinogen Normal mg/dL (Negative) Urine Leukocyte Esterase Negative /uL (Negative) Urine RBC <1 /hpf (0 - 4) Urine Microscopic WBC 1 /HPF (0-5) Urine Squamous Epithelial Cells Few /hpf (<5) Urine Bacteria None seen /hpf (None Seen) Urine Glucose Normal mg/dL (Normal) Labs and/or images reviewed: Labs reviewed by me, Image(s) reviewed by me Assessment/Plan Assessment/Plan Lower abdominal pain Black stool Cecum mass Plan Discussed with Dr. Hoffman Schedule patient for colonoscopy with biopsy on 01/22/2025. Discussed risks benefits and alternatives of procedure and sedation, patient understands and agrees Plan discussed with: Patient, Other (RN) My Orders Orders - MANDY GARZA Procedure Category Date Status Time Obtain Consent For: ORDERS 01/21/25 Transmitted 12:26 Npo (Nothing By DIET 01/21/25 Transmitted Mouth) Diet Dinner Peg [id number] PHA 01/22/25 In Process Bicarb-Sod Ch 06:00 Magnesium Citrate PHA 01/22/25 In Process Solution (Citrate Of M 06:00 Obtain Consent For MICHI 01/21/25 In Process Anesthesia 12:26 Date of Service: Jan 21, 2025 Billing Provider: MANDY GARZA Common Visit Codes: [id number] INP/OBS CARE(HIGH) MANDY GARZA Jan 21, 2025 12:59
[2025-01-21] MEDS: GOLYTELY 4L KIT PO ONE (13:34)
[2025-01-22] VITALS (8 sets, daily range): BP systolic 120–149; BP diastolic 69–93; PULSE 57–82; RESP 15–20; TEMP 97.1–98.2; O2SAT 94–99
[2025-01-22] MEDS: MAGNESIUM CITRATE SOLUTION 300 ML BTL PO ONE (05:03)
[2025-01-22] MEDS: GOLYTELY 4L KIT PO ONE (05:04)
--- NOTE | 2025-01-22 07:28 | DVH ---
CHEST RADIOGRAPH Indication: preop Technique: Single frontal view of the chest was obtained COMPARISON: None FINDINGS: Lines and Tubes: None Lungs: Clear Pleura: No effusion. No pneumothorax. Cardiomediastinal contours: Unremarkable Bones: Unremarkable IMPRESSION: 1. No acute disease.
--- NOTE | 2025-01-22 07:29 | ECG ---
[facility] Test Date: 2025-01-22 Test Time: 04:22:02 Pat Name: WANDA LORA Department: Room: 0279 B Gender: F Transportation Dispatch Manager: at : 1955 Requested By: CINDA CHEEK Order Number: [id number] Reading MD: Wilfredo Rivas Measurements Intervals [place] Rate: 63 P: 22 NE: 171 QRS: -22 QRSD: 94 T: 33 QT: 439 QTc: 450 Interpretive Statements Sinus rhythm Inferior infarct, old Electronically Signed On 01-22-2025 22:54:37 PDT by Wilfredo Rivas Please click the below link to view image of tracing.
[2025-01-22] MEDS ORDERED: SODIUM CHLORIDE LOCK 10 ML ONE (09:31)
[2025-01-22] MEDS ORDERED: LIDOCAINE VISCOUS 2% 15ML UD ONE (09:31)
--- NOTE | 2025-01-22 10:08 | DVHPN2 ---
Subjective Patient doing well, no pain, seen at bedside today Reviewed: Care Plan Changes from previous H/P or p: No Changes General: Per HPI Gastrointestinal: Abdominal Pain, Constipation, Melena Objective Vitals Vital Signs Date Time Temp Pulse Resp B/P (MAP) Pulse Ox O2 Delivery O2 Flow Rate FiO2 01/22/25 05:00 97.8 66 18 127/78 (94) 96 97.8 01/21/25 20:05 Room Air* 0 21 Intake/Output Intake and Output 01/22/25 07:00 Intake Total 4200 ml Balance 4200 ml Intake Oral 4200 ml # Voids 9 # Bowel Movements 6 Exam GEN: Healthy appearing, well-developed, NAD. HEENT: NC/AT; MMM. CV: RRR, no m/r/g. LUNGS: CTAB, no w/r/c. ABD: Soft, NT/ND, NBS, no masses or organomegaly. EXT: skin Warm, well perfused. no rashes. No clubbing, cyanosis, or edema. NEURO: Ambulating with no limitations. No focal deficits. General Appearance: Alert, Oriented X3, No acute distress Lungs: Clear to auscultation, Normal air movement, Other Cardiovascular: Regular rate, Normal S1, Normal S2, No murmurs, Gallops, Rubs, Other Abdomen: Normal bowel sounds, Soft, No tenderness, No hepatospenomegaly, No masses, Other Medications Current Medications Medications Dose Ordered Sig/Lilian Route Start Time Stop Time Status Last Admin Dose Admin Pantoprazole Sodium 40 mg BID IV 01/19/25 10:00 01/22/25 09:27 40 MG Acetaminophen 500 mg Q4HPRN PRN PO 01/19/25 10:00 Acetaminophen/ Hydrocodone Bitart 1 tab Q4HPRN PRN PO 01/19/25 10:00 Morphine Sulfate 1 mg Q4HPRN PRN IV 01/19/25 10:00 Ceftriaxone Sodium 50 ml @ 100 mls/hr DAILY@09 IV 01/21/25 09:00 01/22/25 09:27 100 MLS/HR Laboratory Results Laboratory Tests 01/20/25 05:28 Urinalysis Test 01/19/25 06:16 Urine Color Light-yellow (Yellow) Urine Clarity Clear (Clear) Urine pH 6.5 (5.0-9.0) Urine Specific [place] 1.010 (1.001-1.035) Urine Protein Negative (Negative) Urine Ketones Negative (Negative) Urine Blood Negative /uL (Negative) Urine Nitrite Negative (Negative) Urine Bilirubin Negative (Negative) Urine Urobilinogen Normal mg/dL (Negative) Urine Leukocyte Esterase Negative /uL (Negative) Urine RBC <1 /hpf (0 - 4) Urine Microscopic WBC 1 /HPF (0-5) Urine Squamous Epithelial Cells Few /hpf (<5) Urine Bacteria None seen /hpf (None Seen) Urine Glucose Normal mg/dL (Normal) Labs and/or images reviewed: Labs reviewed by me, Image(s) reviewed by me Assessment/Plan Assessment/Plan Ms Carrasquillo is a 69-year-old female with hiatal hernia repair 1 year back, SLE in remission, hypertension, hyperlipidemia fibromyalgia, degenerative disc disease and chronic back pain, neuropathic, who presented to the ER with a chief complaint of semi-solid tarry black stools for the past 4 days along with weight loss for the past 3 weeks. Patient reports lower abdominal diffuse pain for the past 3 weeks, crampy in nature, she also had a urinary infection 2 weeks back, patient thought it was a flu infection, but she developed generalized weakness, fatigue, low appetite and weight loss of about 8 lb in the past 3 weeks. She has a history of chronic constipation, reports noticing tarry black stools for the past 4-5 days, she reports low-grade fever and chills 1 week back. No recent travel history or sick contacts Patient had hiatal hernia [facility] year back [facility] [place] Last colonoscopy was April 20, 2023, 1 8 mm polyp in the ascending colon, 1 3 mm polyp in the rectum, nonbleeding internal hemorrhoids, patient is unaware of pathology results 01/21: Patient doing well, no further bloody bowel movements. Patient is anxious about the comment of mass on CT. Likely rectosigmoidoscopy tomorrow with GI. 01/22: Patient is likely going to OR today for GI procedure. Otherwise doing well. Diagnosis: Lower GI bleed, rule out active bleed Cecal mass 3 x 3 cm Internal hemorrhoids History of colonic and rectal polyps Nonbleeding internal hemorrhoids history of descending colon 8 mm and rectal 3 mm polyp-path results unknown Unintentional weight loss Generalized weakness Chronic constipationRight-sided hydronephrosis Hypertension History of dyslipidemia History of fibromyalgia History of degenerative disc disease and neuropathic pain History of SLE-in remission Plan: - Plan for GI to take for colonoscopy /sigmoidoscopy on 01/22 or 01/23. -CT abdomen with IV contrast showed 3.6 x 3.4 x 3.5 cm questionable mass at the cecum with cecal inflammation. -IV Protonix b.i.d. -NPO -IV NS 1 L at 75 cc -continue other home medications, Lipitor. Hold home hydrochlorothiazide - hold anticoagulation as risk for bleed. Med surge Full code Plan discussed with: Patient Date of Service: Jan 22, 2025 Billing Provider: SENDY FARRELL MD Common Visit Codes: [id number] INP/OBS CARE(HIGH) SENDY FARRELL MD Jan 22, 2025 10:08
[2025-01-22 12:20] LABS: Hematocrit 39.0 % (36.0-46.0); Hemoglobin 13.2 g/dL (12.2-16.2); Mean Corpuscular Hemoglobin 30.8 pg (28.0-32.0); Mean Corpuscular Volume 90.8 fL (80.0-100.0); Nucleated Red Blood Cells % 0.0 %
[2025-01-22] MEDS: MIDAZOLAM HCL 5 MG/ML-1ML VIAL ONE (14:25)
[2025-01-22] MEDS: diphenhdrAMINE HCL 50 MG/1 ML VL ONE (14:25)
[2025-01-22] MEDS: fentaNYL CITRATE 100 MCG/2 ML VL ONE ×2 (14:25→14:38)
--- NOTE | 2025-01-22 15:25 | DVHOP2 ---
Operative Report DATE OF OPERATION: 01/22/25 PROCEDURE: Colonoscopy with cold biopsy PREOPERATIVE INDICATION: The patient is a 69 -year-old female undergoing colonoscopy for evaluation of abnormal finding GI tract imaging and history of melena POSTOPERATIVE DIAGNOSES: 1. Patient had a protrusion swelling of the appendiceal orifice into the base of the cecum with some superficial inflammatory changes ; no intrinsic mass were seen 2. Xbop-qc-[id number] tortuosity of the colon especially involving the sigmoid and the mid transverse colon otherwise normal examination up to the cecum PROCEDURE PERFORMED BY: Cinda Hoffman M.D. SCOPE: Olympus videocolonoscope. ASA CLASS: 3 PREOPERATIVE MEDICATIONS: Versed 5 mg, Fentanyl 150 mcg, Benadryl 50 mg PROCEDURE IN DETAIL: After obtaining an informed consent, the patient was placed on left lateral decubitus position. She was then sedated with the above medications. A rectal examination was performed that was normal. The colonoscope was then passed through the anus into the rectosigmoid and through the descending, transverse, and ascending colon up to the cecum with visualization of the appendiceal orifice, base of the cecum and the ileocecal valve. The colonoscope was then withdrawn. Careful evaluation of the cecum was done. No intrinsic mass were seen The patient appeared to have an inversion and protrusion of the appendiceal orifice into the cecum IV with superficial inflammatory changes but no intrinsic mass were seen. A fecalith or appendiceal mass could not be ruled out Biopsies were obtained from the appendiceal orifice. No polyps or any other masses were seen. There was no colitis or diverticular disease Patient had wofn-oh-gdjdoaxy tortuosity of the colon especially involving the sigmoid in the mid transverse colon area On retroflexion and straight on view she had trace internal hemorrhoids. Old liquid brown stool in the colon and no black bowel movements The patient tolerated the procedure well without difficulty. WITHDRAWAL TIME: 9 minutes QUALITY OF THE PREP: Thompson Bowel Prep score: 9. COMPLICATIONS : None SPECIMENS: Periappendiceal biopsies at base of cecum DISPOSITION: Transfer back to the floor Stable PLAN: 1. Repeat colonoscopy in 10 years 2. Resume GI soft diet advance as tolerated 3. Discussed with surgical consult, consider MRI of the appendix and possible appendectomy 4. Await biopsy results CINDA HOFFMAN MD Jan 22, 2025 15:25
[2025-01-23] VITALS (7 sets, daily range): BP systolic 101–147; BP diastolic 58–91; PULSE 55–70; RESP 17–20; TEMP 97.1–98.3; O2SAT 96–98
--- NOTE | 2025-01-23 07:35 | DVHPN2 ---
Progress Note Date Seen: Jan 23, 2025 Medical Necessity Reason Pt with a Central, PICC or Fol: No Objective vital signs Vital Sign Date Time Temp Pulse Resp B/P (MAP) Pulse Ox O2 Delivery O2 Flow Rate FiO2 01/23/25 05:02 98.3 59 18 132/82 (99) 97 98.3 01/22/25 19:55 Room Air* 0 21 Total Intake and Output 01/22/25 01/22/25 01/23/25 15:00 23:00 07:00 Intake Total 150 ml 160 ml 900 ml Balance 150 ml 160 ml 900 ml medications Current Medications Medications Dose Ordered Sig/Lilian Route Start Time Stop Time Status Last Admin Dose Admin Pantoprazole Sodium 40 mg BID IV 01/19/25 10:00 01/22/25 09:27 40 MG Acetaminophen 500 mg Q4HPRN PRN PO 01/19/25 10:00 Acetaminophen/ Hydrocodone Bitart 1 tab Q4HPRN PRN PO 01/19/25 10:00 Morphine Sulfate 1 mg Q4HPRN PRN IV 01/19/25 10:00 Ceftriaxone Sodium 50 ml @ 100 mls/hr DAILY@09 IV 01/21/25 09:00 01/22/25 09:27 100 MLS/HR laboratory and microbiology Laboratory Tests 01/22/25 11:51 01/20/25 05:28 Test 01/20/25 05:28 Range/Units Serum Glucose 84 74-106 mg/dL Problem List/Assessment/Plan Problem List/Assessment/Plan 01/20/25 69 YEAR OLD FEMALE WITH ANEMIA AND CT REPORTED POSSIBLE CECAL MASS. AWAITING COLONOSCOPY, CONVERSATION WITH PATIENT, NO EXAMINATION, HAVE EXPLAINED PROCESS AND POSSIBLE OPERATION DEPENDING ON FINDINGS. CONSULT WILL FOLLOW COLONOSCOPY. 01/23/25 DR CAMARA DID A COLONOSCOPY FOLLOWING WHICH SHE RELATED TO ME HER FINDINGS" NO CECAL MASS, APPENDICEAL OPENING INVERTED AND ERYTHEMATOUS, BIOPSIES TAKEN" I WILL REQUEST AND MRI TO R/O APPENDICEAL TUMOR, IF NEGATIVE MAY SUGGEST LAPAROSCOPIC APPENDECTOMY, IF POSITIVE PT WILL NEED RIGHT HEMICOLECTOMY. Plan discussed with: DEMETRICE Temple MD Jan 23, 2025 07:35
[2025-01-23] MEDS: GADOTERATE MEG 10 MMOL/20ml INJ (0.5MMOL/ml) IV ONE (09:02)
--- NOTE | 2025-01-23 11:02 | DVHPN2 ---
Subjective Patient doing well, no pain, seen at bedside today Reviewed: Care Plan Changes from previous H/P or p: No Changes General: Per HPI Gastrointestinal: Abdominal Pain, Constipation, Melena Objective Vitals Vital Signs Date Time Temp Pulse Resp B/P (MAP) Pulse Ox O2 Delivery O2 Flow Rate FiO2 01/23/25 09:19 97.1 67 18 147/91 (109) 98 97.1 01/23/25 08:00 Room Air* 0 21 Intake/Output Intake and Output 01/23/25 07:00 Intake Total 1210 ml Balance 1210 ml Intake Oral 1060 ml IV Total 150 ml # Voids 7 Exam GEN: Healthy appearing, well-developed, NAD. HEENT: NC/AT; MMM. CV: RRR, no m/r/g. LUNGS: CTAB, no w/r/c. ABD: Soft, NT/ND, NBS, no masses or organomegaly. EXT: skin Warm, well perfused. no rashes. No clubbing, cyanosis, or edema. NEURO: Ambulating with no limitations. No focal deficits. General Appearance: Alert, Oriented X3, No acute distress Lungs: Clear to auscultation, Normal air movement, Other Cardiovascular: Regular rate, Normal S1, Normal S2, No murmurs, Gallops, Rubs, Other Abdomen: Normal bowel sounds, Soft, No tenderness, No hepatospenomegaly, No masses, Other Medications Current Medications Medications Dose Ordered Sig/Lilian Route Start Time Stop Time Status Last Admin Dose Admin Pantoprazole Sodium 40 mg BID IV 01/19/25 10:00 01/23/25 09:09 40 MG Acetaminophen 500 mg Q4HPRN PRN PO 01/19/25 10:00 Acetaminophen/ Hydrocodone Bitart 1 tab Q4HPRN PRN PO 01/19/25 10:00 Morphine Sulfate 1 mg Q4HPRN PRN IV 01/19/25 10:00 Ceftriaxone Sodium 50 ml @ 100 mls/hr DAILY@09 IV 01/21/25 09:00 01/23/25 09:09 100 MLS/HR Laboratory Results Laboratory Tests 01/20/25 05:28 01/22/25 11:51 Urinalysis Test 01/19/25 06:16 Urine Color Light-yellow (Yellow) Urine Clarity Clear (Clear) Urine pH 6.5 (5.0-9.0) Urine Specific [place] 1.010 (1.001-1.035) Urine Protein Negative (Negative) Urine Ketones Negative (Negative) Urine Blood Negative /uL (Negative) Urine Nitrite Negative (Negative) Urine Bilirubin Negative (Negative) Urine Urobilinogen Normal mg/dL (Negative) Urine Leukocyte Esterase Negative /uL (Negative) Urine RBC <1 /hpf (0 - 4) Urine Microscopic WBC 1 /HPF (0-5) Urine Squamous Epithelial Cells Few /hpf (<5) Urine Bacteria None seen /hpf (None Seen) Urine Glucose Normal mg/dL (Normal) Labs and/or images reviewed: Labs reviewed by me, Image(s) reviewed by me Assessment/Plan Assessment/Plan Ms Carrasquillo is a 69-year-old female with hiatal hernia repair 1 year back, SLE in remission, hypertension, hyperlipidemia fibromyalgia, degenerative disc disease and chronic back pain, neuropathic, who presented to the ER with a chief complaint of semi-solid tarry black stools for the past 4 days along with weight loss for the past 3 weeks. Patient reports lower abdominal diffuse pain for the past 3 weeks, crampy in nature, she also had a urinary infection 2 weeks back, patient thought it was a flu infection, but she developed generalized weakness, fatigue, low appetite and weight loss of about 8 lb in the past 3 weeks. She has a history of chronic constipation, reports noticing tarry black stools for the past 4-5 days, she reports low-grade fever and chills 1 week back. No recent travel history or sick contacts Patient had hiatal hernia [facility] year back [facility] in [place] Last colonoscopy was April 20, 2023, 1 8 mm polyp in the ascending colon, 1 3 mm polyp in the rectum, nonbleeding internal hemorrhoids, patient is unaware of pathology results 01/21: Patient doing well, no further bloody bowel movements. Patient is anxious about the comment of mass on CT. Likely rectosigmoidoscopy tomorrow with GI. 01/22: Patient is likely going to OR today for GI procedure. Otherwise doing well. 01/23: GI report had inversion/protrusion of appendix, GI had updated surgery. Surgery is getting MRI appendix today. We will follow up with surgery for care plan after imaging. All cancer marker levels were negative (CEA, CA 125, CA 19/9). Diagnosis: Lower GI bleed, rule out active bleed Cecal mass 3 x 3 cm Internal hemorrhoids History of colonic and rectal polyps Nonbleeding internal hemorrhoids history of descending colon 8 mm and rectal 3 mm polyp-path results unknown Unintentional weight loss Generalized weakness Chronic constipationRight-sided hydronephrosis Hypertension History of dyslipidemia History of fibromyalgia History of degenerative disc disease and neuropathic pain History of SLE-in remission Plan: - Plan for GI to take for colonoscopy /sigmoidoscopy on 01/22 or 01/23. -CT abdomen with IV contrast showed 3.6 x 3.4 x 3.5 cm questionable mass at the cecum with cecal inflammation. -IV Protonix b.i.d. -NPO -IV NS 1 L at 75 cc -continue other home medications, Lipitor. Hold home hydrochlorothiazide - hold anticoagulation as risk for bleed. Med surge Full code Plan discussed with: Patient Date of Service: Jan 23, 2025 Billing Provider: SENDY FARRELL MD Common Visit Codes: [id number] INP/OBS CARE(HIGH) SENDY FARRELL MD Jan 23, 2025 11:02
--- NOTE | 2025-01-23 13:33 | DVH ---
PROCEDURE: MRI MRI ABD PLEVIS W/WO CONT Indication: Pain, melena COMPARISON: 01/19/2025 TECHNIQUE: Multiplanar multisequence images of the abdomen, pelvis were obtained with and without con trast. FINDINGS: Adrenal glands, spleen unremarkable. Small pancreatic T2 bright lesions up to 4 mm. Pancreatic parenc hymal atrophy. No evidence for cholelithiasis. CBD measures 6 mm. No hepatic lesion identified. No hydronephrosis. Mild bilateral perinephric edema. Stomach is partially distended. Small hiatal hernia. Small bowel loops are normal in caliber. Bladder partially distended. Complex lesion near the cecum / appendix measuring 4.4 x 5.1 cm in the r egion of the cecum / appendix in the right aspect of the pelvis. Is extensive surrounding edema and i nflammatory stranding. There is surrounding edema and stranding. No inguinal lymphadenopathy IMPRESSION: Complex lesion with heterogeneous enhancement near the cecum / appendix in the right aspect of the pe lvis measuring 4.4 x 5.1 cm. Differential considerations include cecal mass/ malignancy, appendiceal mass/ malignancy, appendicitis/cecitis complicated by phlegmonous/ abscess changes. Recommend surgi elizabeth consultation for further evaluation management. Tiny pancreatic T2 bright lesions up to 4 mm with differential considerations including IPMN, pseudoc yst, cyst, cystic neoplasm. Small hiatal hernia. Other findings as described
--- NOTE | 2025-01-23 22:52 | DVHPN2 ---
Progress Note - Dictate Date Seen: Jan 23, 2025 Medical Necessity Reason Pt with a Central, PICC or Fol: No Subjective No new complaints Patient underwent MRI of the abdomen pelvis and appendix today; Findings IMPRESSION: Complex lesion with heterogeneous enhancement near the cecum / appendix in the right aspect of the pelvis measuring 4.4 x 5.1 cm. Differential considerations include cecal mass/ malignancy, appendiceal mass/ malignancy, appendicitis/cecitis complicated by phlegmonous/ abscess changes. Recommend surgical consultation for further evaluation management. vital signs Vital Sign Date Time Temp Pulse Resp B/P (MAP) Pulse Ox O2 Delivery O2 Flow Rate FiO2 01/23/25 21:00 98.3 70 17 101/58 (72) 96 98.3 01/23/25 08:00 Room Air* 0 21 Total Intake and Output 01/22/25 01/22/25 01/23/25 15:00 23:00 07:00 Intake Total 150 ml 160 ml 900 ml Balance 150 ml 160 ml 900 ml medications Current Medications Medications Dose Ordered Sig/Lilian Route Start Time Stop Time Status Last Admin Dose Admin Pantoprazole Sodium 40 mg BID IV 01/19/25 10:00 01/23/25 09:09 40 MG Acetaminophen 500 mg Q4HPRN PRN PO 01/19/25 10:00 Acetaminophen/ Hydrocodone Bitart 1 tab Q4HPRN PRN PO 01/19/25 10:00 Morphine Sulfate 1 mg Q4HPRN PRN IV 01/19/25 10:00 Ceftriaxone Sodium 50 ml @ 100 mls/hr DAILY@09 IV 01/21/25 09:00 01/23/25 09:09 100 MLS/HR objective General Appearance: Alert, Oriented X3, No acute distress Lungs: Clear to auscultation, Normal air movement, Other Cardiovascular: Regular rate, Normal S1, Normal S2, No murmurs, Gallops, Rubs, Other Abdomen: Normal bowel sounds, Soft, No tenderness, No hepatospenomegaly, No masses, laboratory and microbiology Laboratory Tests 01/22/25 11:51 01/20/25 05:28 Test 01/20/25 05:28 Range/Units Serum Glucose 84 74-106 mg/dL Problems(with codes): (1) Appendiceal tumor (2) Lower abdominal pain (3) Black stools (4) Cecum mass Prognosis Assessment and plan Patient has no evidence of an intrinsic cecal mass This abnormality is likely related to her appendix I had seen minimal superficial inflammation office slightly inverted swollen appendiceal base Await biopsy results which I believe were superficial and we will not yield a diagnosis Surgical follow up to decide on surgical intervention which is recommended as the patient may have an appendiceal tumor Plan discussed with: Other (Dr Amaro) CINDA CHEEK MD Jan 23, 2025 22:52
[2025-01-24] VITALS (7 sets, daily range): BP systolic 127–152; BP diastolic 74–85; PULSE 50–65; RESP 16–18; TEMP 97.7–98; O2SAT 95–98
--- NOTE | 2025-01-24 10:31 | DVHPN2 ---
Progress Note Date Seen: Jan 24, 2025 Medical Necessity Reason Pt with a Central, PICC or Fol: No Objective vital signs Vital Sign Date Time Temp Pulse Resp B/P (MAP) Pulse Ox O2 Delivery O2 Flow Rate FiO2 01/24/25 09:00 97.9 57 16 137/74 (95) 98 97.9 01/24/25 08:00 Room Air* 0 21 Total Intake and Output 01/23/25 01/23/25 01/24/25 15:00 23:00 07:00 Intake Total 50 ml 600 ml 150 ml Balance 50 ml 600 ml 150 ml medications Current Medications Medications Dose Ordered Sig/Lilian Route Start Time Stop Time Status Last Admin Dose Admin Pantoprazole Sodium 40 mg BID IV 01/19/25 10:00 01/24/25 09:33 40 MG Acetaminophen 500 mg Q4HPRN PRN PO 01/19/25 10:00 Acetaminophen/ Hydrocodone Bitart 1 tab Q4HPRN PRN PO 01/19/25 10:00 Morphine Sulfate 1 mg Q4HPRN PRN IV 01/19/25 10:00 Ceftriaxone Sodium 50 ml @ 100 mls/hr DAILY@09 IV 01/21/25 09:00 01/24/25 09:33 100 MLS/HR laboratory and microbiology Laboratory Tests 01/22/25 11:51 01/20/25 05:28 Test 01/20/25 05:28 Range/Units Serum Glucose 84 74-106 mg/dL Problem List/Assessment/Plan Problem List/Assessment/Plan 01/20/25 69 YEAR OLD FEMALE WITH ANEMIA AND CT REPORTED POSSIBLE CECAL MASS. AWAITING COLONOSCOPY, CONVERSATION WITH PATIENT, NO EXAMINATION, HAVE EXPLAINED PROCESS AND POSSIBLE OPERATION DEPENDING ON FINDINGS. CONSULT WILL FOLLOW COLONOSCOPY. 01/23/25 DR CAMARA DID A COLONOSCOPY FOLLOWING WHICH SHE RELATED TO ME HER FINDINGS" NO CECAL MASS, APPENDICEAL OPENING INVERTED AND ERYTHEMATOUS, BIOPSIES TAKEN" I WILL REQUEST AND MRI TO R/O APPENDICEAL TUMOR, IF NEGATIVE MAY SUGGEST LAPAROSCOPIC APPENDECTOMY, IF POSITIVE PT WILL NEED RIGHT HEMICOLECTOMY. 01/24/25 MRI SCAN RESULTS DISCUSSED AND EXPLAINED TO PATIENT AND FAMILY AT BEDSIDE. WILL PROCEED WITH OPEN OPERATION AND PROBABLY RIGHT HEMICOLECTOMY TOMORROW. PROCEDURE RISKS AND COMPLICATIONS EXPLAINED IN DETAIL, ALL QUESTIONS ANSWERED Plan discussed with: Patient DEMETRICE MATT MD Jan 24, 2025 10:31
[2025-01-24] MEDS: D5W/SOD CHL 0.45%/KCL 20MEQ 1,000 ML IV ONE (10:45)
[2025-01-24 13:07] LABS: INR 1.03 (0.9-1.15); Partial Thromboplastin Time 26.4 SEC (24.5-34.5); Prothrombin Time 10.9 sec (9.3-11.8)
--- NOTE | 2025-01-24 17:04 | DVHPN2 ---
Subjective Patient doing well, no pain, seen at bedside today Reviewed: Care Plan Changes from previous H/P or p: No Changes General: Per HPI Gastrointestinal: Abdominal Pain, Constipation, Melena Objective Vitals Vital Signs Date Time Temp Pulse Resp B/P (MAP) Pulse Ox O2 Delivery O2 Flow Rate FiO2 01/24/25 13:00 97.8 65 16 149/85 (106) 98 97.8 01/24/25 08:00 Room Air* 0 21 Intake/Output Intake and Output 01/24/25 07:00 Intake Total 800 ml Balance 800 ml Intake Oral 750 ml IV Total 50 ml # Voids 8 Exam GEN: Healthy appearing, well-developed, NAD. HEENT: NC/AT; MMM. CV: RRR, no m/r/g. LUNGS: CTAB, no w/r/c. ABD: Soft, NT/ND, NBS, no masses or organomegaly. EXT: skin Warm, well perfused. no rashes. No clubbing, cyanosis, or edema. NEURO: Ambulating with no limitations. No focal deficits. General Appearance: Alert, Oriented X3, No acute distress Lungs: Clear to auscultation, Normal air movement, Other Cardiovascular: Regular rate, Normal S1, Normal S2, No murmurs, Gallops, Rubs, Other Abdomen: Normal bowel sounds, Soft, No tenderness, No hepatospenomegaly, No masses, Other Medications Current Medications Medications Dose Ordered Sig/Lilian Route Start Time Stop Time Status Last Admin Dose Admin Pantoprazole Sodium 40 mg BID IV 01/19/25 10:00 01/24/25 09:33 40 MG Acetaminophen 500 mg Q4HPRN PRN PO 01/19/25 10:00 Acetaminophen/ Hydrocodone Bitart 1 tab Q4HPRN PRN PO 01/19/25 10:00 Morphine Sulfate 1 mg Q4HPRN PRN IV 01/19/25 10:00 Ceftriaxone Sodium 50 ml @ 100 mls/hr DAILY@09 IV 01/21/25 09:00 01/24/25 09:33 100 MLS/HR Laboratory Results Laboratory Tests 01/20/25 05:28 01/22/25 11:51 Coagulation Test 01/24/25 12:25 Prothrombin Time 10.9 sec (9.3-11.8) Prothrombin Time INR 1.03 (0.9-1.15) Activated Partial Thromboplast Time 26.4 SEC (24.5-34.5) Urinalysis Test 01/19/25 06:16 Urine Color Light-yellow (Yellow) Urine Clarity Clear (Clear) Urine pH 6.5 (5.0-9.0) Urine Specific [place] 1.010 (1.001-1.035) Urine Protein Negative (Negative) Urine Ketones Negative (Negative) Urine Blood Negative /uL (Negative) Urine Nitrite Negative (Negative) Urine Bilirubin Negative (Negative) Urine Urobilinogen Normal mg/dL (Negative) Urine Leukocyte Esterase Negative /uL (Negative) Urine RBC <1 /hpf (0 - 4) Urine Microscopic WBC 1 /HPF (0-5) Urine Squamous Epithelial Cells Few /hpf (<5) Urine Bacteria None seen /hpf (None Seen) Urine Glucose Normal mg/dL (Normal) Labs and/or images reviewed: Labs reviewed by me, Image(s) reviewed by me Assessment/Plan Assessment/Plan Ms Carrasquillo is a 69-year-old female with hiatal hernia repair 1 year back, SLE in remission, hypertension, hyperlipidemia fibromyalgia, degenerative disc disease and chronic back pain, neuropathic, who presented to the ER with a chief complaint of semi-solid tarry black stools for the past 4 days along with weight loss for the past 3 weeks. Patient reports lower abdominal diffuse pain for the past 3 weeks, crampy in nature, she also had a urinary infection 2 weeks back, patient thought it was a flu infection, but she developed generalized weakness, fatigue, low appetite and weight loss of about 8 lb in the past 3 weeks. She has a history of chronic constipation, reports noticing tarry black stools for the past 4-5 days, she reports low-grade fever and chills 1 week back. No recent travel history or sick contacts Patient had hiatal hernia [facility] back [facility] [place] Last colonoscopy was April 20, 2023, 1 8 mm polyp in the ascending colon, 1 3 mm polyp in the rectum, nonbleeding internal hemorrhoids, patient is unaware of pathology results 01/21: Patient doing well, no further bloody bowel movements. Patient is anxious about the comment of mass on CT. Likely rectosigmoidoscopy tomorrow with GI. 01/22: Patient is likely going to OR today for GI procedure. Otherwise doing well. 01/23: GI report had inversion/protrusion of appendix, GI had updated surgery. Surgery is getting MRI appendix today. We will follow up with surgery for care plan after imaging. All cancer marker levels were negative (CEA, CA 125, CA 19/9). 01/24: MRI was concerning for mass in cecum/appendix seal region. Surgery aware and wants to take for OR for ascending hemicolectomy, patient is NPO and NPO midnight until surgery. Diagnosis: Lower GI bleed, rule out active bleed Cecal mass 3 x 3 cm Internal hemorrhoids History of colonic and rectal polyps Nonbleeding internal hemorrhoids history of descending colon 8 mm and rectal 3 mm polyp-path results unknown Unintentional weight loss Generalized weakness Chronic constipationRight-sided hydronephrosis Hypertension History of dyslipidemia History of fibromyalgia History of degenerative disc disease and neuropathic pain History of SLE-in remission Plan: - Plan for GI to take for colonoscopy /sigmoidoscopy on 01/22 or 01/23. -CT abdomen with IV contrast showed 3.6 x 3.4 x 3.5 cm questionable mass at the cecum with cecal inflammation. MRI concerning for cecal/appendiceal mass. - colonoscopy concerning for inverted appendix stump. Biopsy taken. -IV Protonix b.i.d. -NPO -IV NS 1 L at 75 cc -continue other home medications, Lipitor. Hold home hydrochlorothiazide - hold anticoagulation as risk for bleed. Med surge Full code Plan discussed with: Patient Date of Service: Jan 24, 2025 Billing Provider: SENDY FARRELL MD Common Visit Codes: [id number] INP/OBS CARE(HIGH) SENDY FARRELL MD Jan 24, 2025 17:04
--- NOTE | 2025-01-24 22:19 | DVHPN2 ---
Progress Note - Dictate Date Seen: Jan 24, 2025 Medical Necessity Reason Pt with a Central, PICC or Fol: No Subjective No new complaints Patient underwent MRI of the abdomen pelvis and appendix today; Findings IMPRESSION: Complex lesion with heterogeneous enhancement near the cecum / appendix in the right aspect of the pelvis measuring 4.4 x 5.1 cm. Differential considerations include cecal mass/ malignancy, appendiceal mass/ malignancy, appendicitis/cecitis complicated by phlegmonous/ abscess changes. Recommend surgical consultation for further evaluation management. vital signs Vital Sign Date Time Temp Pulse Resp B/P (MAP) Pulse Ox O2 Delivery O2 Flow Rate FiO2 01/24/25 21:00 98.0 57 18 152/80 (104) 95 98.0 01/24/25 08:00 Room Air* 0 21 Total Intake and Output 01/23/25 01/23/25 01/24/25 15:00 23:00 07:00 Intake Total 50 ml 600 ml 150 ml Balance 50 ml 600 ml 150 ml medications Current Medications Medications Dose Ordered Sig/Lilian Route Start Time Stop Time Status Last Admin Dose Admin Pantoprazole Sodium 40 mg BID IV 01/19/25 10:00 01/24/25 09:33 40 MG Acetaminophen 500 mg Q4HPRN PRN PO 01/19/25 10:00 Acetaminophen/ Hydrocodone Bitart 1 tab Q4HPRN PRN PO 01/19/25 10:00 Morphine Sulfate 1 mg Q4HPRN PRN IV 01/19/25 10:00 Ceftriaxone Sodium 50 ml @ 100 mls/hr DAILY@09 IV 01/21/25 09:00 01/24/25 09:33 100 MLS/HR objective General Appearance: Alert, Oriented X3, No acute distress Lungs: Clear to auscultation, Normal air movement, Other Cardiovascular: Regular rate, Normal S1, Normal S2, No murmurs, Gallops, Rubs, Other Abdomen: Normal bowel sounds, Soft, No tenderness, No hepatospenomegaly, No masses, laboratory and microbiology Laboratory Tests 01/22/25 11:51 01/20/25 05:28 Test 01/20/25 05:28 Range/Units Serum Glucose 84 74-106 mg/dL Problems(with codes): (1) Appendiceal tumor (2) Lower abdominal pain (3) Black stools (4) Cecum mass Prognosis Plan NPO after midnight Patient is scheduled for possible exploratory laparotomy possible open right hemicolectomy tomorrow Continue IV antibiotics IV TPN or Clinimix Dietary Evaluation Review Comments: 1) Consider TPN per pharmacy 2) Advance diet as medically feasible 3) Monitor NPO status, lab values, weight trend, and I/O Expected Outcomes/Goals: To meet >75% estimated needs GI symptoms to improve Fu 2-3 days Plan discussed with: Patient CINDA CHEEK MD Jan 24, 2025 22:19
[2025-01-25] VITALS (9 sets, daily range): BP systolic 124–147; BP diastolic 69–84; PULSE 50–89; RESP 15–20; TEMP 97.3–98.2; O2SAT 90–100
[2025-01-25 06:08] LABS: Hematocrit 38.8 % (36.0-46.0); Hemoglobin 13.8 g/dL (12.2-16.2); Mean Corpuscular Hemoglobin 31.9 pg (28.0-32.0); Mean Corpuscular Volume 89.9 fL (80.0-100.0); Nucleated Red Blood Cells % 0.0 %
[2025-01-25 06:15] LABS: Albumin 4.0 g/dL (3.2-4.8); Alkaline Phosphatase 78 U/L (46-116); Anion Gap 8 (5-15); Calcium 9.4 mg/dL (8.7-10.4); Carbon Dioxide 28 mmol/L (20-31); Chloride 105 mmol/L (98-107); Glucose 97 mg/dL (74-106); Potassium 4.0 mmol/L (3.5-5.1); Sodium 141 mmol/L (136-145); Total Protein 6.6 g/dL (5.7-8.2)
[2025-01-25 06:34] LABS: Alanine Aminotransferase 9 U/L (7-40); BUN/Creatinine Ratio 8.3 (10.0-20.0); Bilirubin, Total 0.3 mg/dL (0.2-1.0); Blood Urea Nitrogen < 5 mg/dL (9-23)
[2025-01-25 06:41] LABS: INR 1.03 (0.9-1.15); Prothrombin Time 10.9 sec (9.3-11.8)
[2025-01-25] MEDS: SUCCINYLCHOLINE CHLORIDE 20 MG/ML 10ML VIAL IV ONE (06:57)
[2025-01-25] MEDS: ROCURONIUM 10MG/ML 10ML VIAL IV ONE (06:57)
[2025-01-25] MEDS: ceFAZolin 2 GM/D5W50ml 50 ML IV ONE (06:57)
[2025-01-25] MEDS ORDERED: KETAMINE 50mg/ML 1ml syringe ONE (06:59)
[2025-01-25] MEDS ORDERED: HYDROmorphone HCL 2 MG/ML VL/or syr ONE (06:59)
[2025-01-25] MEDS ORDERED: LIDOCAINE HCL 2% TOP JELLY 5ML TOP ONE (07:00)
[2025-01-25] MEDS ORDERED: LIDOCAINE 1% INJ PF 5ML AMP ONE (07:00)
[2025-01-25] MEDS ORDERED: SODIUM CHLORIDE LOCK 50 ML ONE (07:00)
[2025-01-25] MEDS ORDERED: MIDAZOLAM HCL 2MG/2ML 2ml VIAL (1mg/ml) ONE (07:00)
[2025-01-25] MEDS ORDERED: fentaNYL CITRATE 100 MCG/2 ML VL ONE (07:00)
[2025-01-25] MEDS ORDERED: ONDANSETRON HCL 4 MG/2 ML VIAL ONE (07:00)
[2025-01-25] MEDS ORDERED: PROPOFOL 10 MG/ML 20 ML IV ONE (07:00)
[2025-01-25] MEDS: BUPIVACAINE 0.5% MPF INJ 30ML SDV IJ ONE (07:18)
[2025-01-25] MEDS: LIDOCAINE W/ EPINEPHRINE 1% 20ML VIAL ONE (07:18)
[2025-01-25] MEDS ORDERED: HYDROmorphone HCL 2 MG/ML VL/or syr IV PRN (07:30)
[2025-01-25] MEDS: KETOROLAC TROMETH 30 MG/ML 1ML VIAL IV ONE (07:30)
[2025-01-25] MEDS ORDERED: MORPHINE SULFATE 4 MG/ML SYR/VIAL IV PRN (07:30)
[2025-01-25] MEDS ORDERED: NEOSTIGMINE 1 MG/ML INJ (10mg/10ML VIAL) ONE (08:50)
[2025-01-25] MEDS ORDERED: GLYCOPYRROLATE 0.2 MG/ML 1ML VIAL ONE (08:50)
[2025-01-25] MEDS: POVIDONE IODINE 10 % TOPICAL OINT 30GM TOP ONE (08:54)
--- NOTE | 2025-01-25 09:31 | DVHOP ---
DATE OF SURGERY: 01/25/2025 PREOPERATIVE DIAGNOSIS: Right paracecal mass. POSTOPERATIVE DIAGNOSIS: Inflammatory or malignant mass adjacent to the cecum, emanating from the appendix. SURGEON: Diomedes Mueller MD SALES REPRESENTATIVE [employer] SUPPLIES: Peter Starr NP ANESTHESIA: General endotracheal. ANESTHESIOLOGIST: Dr. Flor. PROCEDURES: * Exploratory laparotomy. * Right hemicolectomy. DESCRIPTION OF PROCEDURE: Under adequate anesthesia with the patient's skin prepped and draped, a midline incision was made and the abdomen was visually and manually explored. There was a mass adjacent to the cecum, which seemed to be emanating from the appendix, which was densely adherent to the lateral and posterior, peritoneum portion of the mass was retroperitoneal in position. Meticulous dissection of the ureter and iliac vein and artery from this mass was accomplished without any undue bleeding. The mass was fully mobilized. It appeared to be inflammatory in nature. Frozen section was not available due to the Cryotome being unavailable due to repairs. At this point, the distal ileum was transected as was the ascending colon with adequate margins of the mass accomplished. The mesenteries were divided between clamps and ligated. The patient's bowel was transected with a JAMSHID stapler and submitted for pathology. Subsequently, a side-to-end anastomosis between the terminal ileum and the ascending colon was accomplished utilizing 3-0 Monocryl and 3-0 Prolene sutures for the inner and outer layer respectively. Bowel clamps were utilized to prevent spillage of intestinal contents, none of which have been witnessed. Following termination of the anastomosis, the suture line was tested for water tightness, which was proven by compression and milking the contents through the anastomosis. There was no evidence of any spill. The mesentery was then approximated using 2-0 Monocryl suture. The abdomen was profusely irrigated. Irrigant was aspirated. Hemostasis was meticulously inspected and accomplished. A 10 mm Alf-Reeves drain was placed into the right paracolic gutter and exteriorized through a 5 mm incision in the lateral abdominal wall on the left. The drain was secured with a 2-0 nylon suture. Following further assurance of complete hemostasis, the abdomen was closed using #1 double-stranded PDS sutures and skin was approximated using metallic skin lillian. The patient remained stable throughout the procedure, left the operating room following an accurate needle and sponge count. Her daughter, Waleska, did not answer at [phone]. MD MOLLY Silva/PINKY TID: [id number] RECEIPT: [id number]
[2025-01-25] MEDS: MORPHINE SULFATE INJ 2 MG/ml SYRG IV PRN (09:33)
[2025-01-25] MEDS: PANTOPRAZOLE 40 MG/10 ML VIAL INJ IV SCH (09:34)
[2025-01-25] MEDS: METOCLOPRAMIDE HCL 5MG/ml INJ 2ml VIAL IV PRN (09:34)
[2025-01-25] MEDS: HYDROmorphone HCL 2 MG/ML VL/or syr IV PRN (09:44)
[2025-01-25] MEDS: ACETAMINOPHEN IV 1000 MG/100ML (10MG/ML) IV ONE (09:45)
[2025-01-25] MEDS: ACETAMINOPHEN IV 100 ML IV ONE (09:45)
--- NOTE | 2025-01-25 10:13 | DVHPN2 ---
Subjective Patient doing well, no pain, seen at bedside today Reviewed: Care Plan Changes from previous H/P or p: No Changes General: Per HPI Gastrointestinal: Abdominal Pain, Constipation, Melena Objective Vitals Vital Signs Date Time Temp Pulse Resp B/P (MAP) Pulse Ox O2 Delivery O2 Flow Rate FiO2 01/25/25 09:59 52 12 120/59 01/25/25 05:00 98.0 97 98.0 01/24/25 20:00 Room Air* 0 21 Intake/Output Intake and Output 01/25/25 06:59 Intake Total 1375 ml Balance 1375 ml Intake Oral 225 ml IV Total 1150 ml # Voids 9 Exam GEN: Healthy appearing, well-developed, NAD. HEENT: NC/AT; MMM. CV: RRR, no m/r/g. LUNGS: CTAB, no w/r/c. ABD: Soft, NT/ND, NBS, no masses or organomegaly. EXT: skin Warm, well perfused. no rashes. No clubbing, cyanosis, or edema. NEURO: Ambulating with no limitations. No focal deficits. General Appearance: Alert, Oriented X3, No acute distress Lungs: Clear to auscultation, Normal air movement, Other Cardiovascular: Regular rate, Normal S1, Normal S2, No murmurs, Gallops, Rubs, Other Abdomen: Normal bowel sounds, Soft, No tenderness, No hepatospenomegaly, No masses, Other Medications Current Medications Medications Dose Ordered Sig/Lilian Route Start Time Stop Time Status Last Admin Dose Admin Acetaminophen 500 mg Q4HPRN PRN PO 01/19/25 10:00 Acetaminophen/ Hydrocodone Bitart 1 tab Q4HPRN PRN PO 01/19/25 10:00 Ceftriaxone Sodium 50 ml @ 100 mls/hr DAILY@09 IV 01/21/25 09:00 Future Hold 01/24/25 09:33 100 MLS/HR Morphine Sulfate 2 mg Q4H PRN IV 01/25/25 07:30 01/25/25 11:31 Morphine Sulfate 1 mg Q30M PRN IV 01/25/25 10:00 01/25/25 12:01 01/25/25 09:33 1 MG Potassium Chloride/Dextrose/ Sod Cl 1,000 ml @ 120 mls/hr Q8H20M IV 01/25/25 09:00 Cefazolin Sodium 50 ml @ 100 mls/hr Q8H IV 01/25/25 13:00 Metronidazole 100 ml @ 100 mls/hr Q8HR IV 01/25/25 14:00 Hydromorphone HCl 1 mg Q3HPRN PRN IV 01/25/25 09:00 Ondansetron HCl 4 mg Q4HPRN PRN IV 01/25/25 09:00 Pantoprazole Sodium 40 mg DAILY IV 01/25/25 10:00 01/25/25 09:34 40 MG Laboratory Results Laboratory Tests 01/25/25 05:03 Chemistry Test 01/25/25 05:03 Albumin 4.0 g/dL (3.2-4.8) Calcium Level 9.4 mg/dL (8.7-10.4) Total Protein 6.6 g/dL (5.7-8.2) Coagulation Test 01/24/25 12:25 01/25/25 05:03 Prothrombin Time 10.9 sec (9.3-11.8) 10.9 sec (9.3-11.8) Prothrombin Time INR 1.03 (0.9-1.15) 1.03 (0.9-1.15) Activated Partial Thromboplast Time 26.4 SEC (24.5-34.5) LFT Test 01/25/25 05:03 Alanine Aminotransferase (ALT) 9 U/L (7-40) Alkaline Phosphatase 78 U/L (46-116) Aspartate Amino Transferase (AST) 12 U/L (13-40) L Total Bilirubin 0.3 mg/dL (0.2-1.0) Urinalysis Test 01/19/25 06:16 Urine Color Light-yellow (Yellow) Urine Clarity Clear (Clear) Urine pH 6.5 (5.0-9.0) Urine Specific [place] 1.010 (1.001-1.035) Urine Protein Negative (Negative) Urine Ketones Negative (Negative) Urine Blood Negative /uL (Negative) Urine Nitrite Negative (Negative) Urine Bilirubin Negative (Negative) Urine Urobilinogen Normal mg/dL (Negative) Urine Leukocyte Esterase Negative /uL (Negative) Urine RBC <1 /hpf (0 - 4) Urine Microscopic WBC 1 /HPF (0-5) Urine Squamous Epithelial Cells Few /hpf (<5) Urine Bacteria None seen /hpf (None Seen) Urine Glucose Normal mg/dL (Normal) Labs and/or images reviewed: Labs reviewed by me, Image(s) reviewed by me Assessment/Plan Assessment/Plan Ms Carrasquillo is a 69-year-old female with hiatal hernia repair 1 year back, SLE in remission, hypertension, hyperlipidemia fibromyalgia, degenerative disc disease and chronic back pain, neuropathic, who presented to the ER with a chief complaint of semi-solid tarry black stools for the past 4 days along with weight loss for the past 3 weeks. Patient reports lower abdominal diffuse pain for the past 3 weeks, crampy in nature, she also had a urinary infection 2 weeks back, patient thought it was a flu infection, but she developed generalized weakness, fatigue, low appetite and weight loss of about 8 lb in the past 3 weeks. She has a history of chronic constipation, reports noticing tarry black stools for the past 4-5 days, she reports low-grade fever and chills 1 week back. No recent travel history or sick contacts Patient had hiatal hernia [facility] year back [facility] [place] Last colonoscopy was April 20, 2023, 1 8 mm polyp in the ascending colon, 1 3 mm polyp in the rectum, nonbleeding internal hemorrhoids, patient is unaware of pathology results 01/21: Patient doing well, no further bloody bowel movements. Patient is anxious about the comment of mass on CT. Likely rectosigmoidoscopy tomorrow with GI. 01/22: Patient is likely going to OR today for GI procedure. Otherwise doing well. 01/23: GI report had inversion/protrusion of appendix, GI had updated surgery. Surgery is getting MRI appendix today. We will follow up with surgery for care plan after imaging. All cancer marker levels were negative (CEA, CA 125, CA 19/9). 01/24: MRI was concerning for mass in cecum/appendix seal region. Surgery aware and wants to take for OR for ascending hemicolectomy, patient is NPO and NPO midnight until surgery. 01/25: pt taken for likely hemicolectomy today. surgery to determine diet plan after surgery patient.. Patient doing well after surgery tolerance very well, there was some bradycardia after surgery cardiology was consulted. After surgery patient is NPO NG tube on continuous suction, she has maintenance IV fluids per surgery. Patient to be stabilized over weekend as postop stabilization. Continuing IV antibiotics. Diagnosis: Lower GI bleed, rule out active bleed Cecal mass 3 x 3 cm Internal hemorrhoids History of colonic and rectal polyps Nonbleeding internal hemorrhoids history of descending colon 8 mm and rectal 3 mm polyp-path results unknown Unintentional weight loss Generalized weakness Chronic constipationRight-sided hydronephrosis Hypertension History of dyslipidemia History of fibromyalgia History of degenerative disc disease and neuropathic pain History of SLE-in remission Plan: - Plan for GI to take for colonoscopy /sigmoidoscopy on 01/22 or 01/23. -CT abdomen with IV contrast showed 3.6 x 3.4 x 3.5 cm questionable mass at the cecum with cecal inflammation. MRI concerning for cecal/appendiceal mass. - colonoscopy concerning for inverted appendix stump. Biopsy taken. -IV Protonix b.i.d. -NPO -IV NS 1 L at 75 cc -continue other home medications, Lipitor. Hold home hydrochlorothiazide - hold anticoagulation as risk for bleed. Med surge Full code Plan discussed with: Patient Date of Service: Jan 25, 2025 Billing Provider: SENDY FARRELL MD Common Visit Codes: [id number] INP/OBS CARE(HIGH) SENDY FARRELL MD Jan 25, 2025 10:13
--- NOTE | 2025-01-25 10:52 | DVH ---
CHEST RADIOGRAPH Indication: CONFIRM NG TUBE PLACEMENT Technique: Single frontal view of the chest was obtained COMPARISON: XY CHEST PORTABLE on DOS: 01/22/25 FINDINGS: Lines and Tubes: Enteric catheter in satisfactory position. Lungs: Clear Pleura: No effusion. No pneumothorax. Cardiomediastinal contours: Unremarkable Bones: Unremarkable IMPRESSION: Enteric catheter in satisfactory position.
[2025-01-25] MEDS: ONDANSETRON HCL 4 MG/2 ML VIAL IV PRN (10:53)
--- NOTE | 2025-01-25 12:11 | DVHPN2 ---
Progress Note - Dictate Date Seen: Jan 25, 2025 Medical Necessity Reason Pt with a Central, PICC or Fol: No Subjective Patient underwent exploratory laparotomy and right hemicolectomy today POSTOPERATIVE DIAGNOSIS: Inflammatory or malignant mass adjacent to the cecum, emanating from the appendix. vital signs Vital Sign Date Time Temp Pulse Resp B/P (MAP) Pulse Ox O2 Delivery O2 Flow Rate FiO2 01/25/25 10:54 50 15 120/49 01/25/25 05:00 98.0 97 98.0 01/24/25 20:00 Room Air* 0 21 Total Intake and Output 01/24/25 01/24/25 01/25/25 15:00 23:00 07:00 Intake Total 50 ml 1225 ml 100 ml Balance 50 ml 1225 ml 100 ml medications Current Medications Medications Dose Ordered Sig/Lilian Route Start Time Stop Time Status Last Admin Dose Admin Acetaminophen 500 mg Q4HPRN PRN PO 01/19/25 10:00 Acetaminophen/ Hydrocodone Bitart 1 tab Q4HPRN PRN PO 01/19/25 10:00 Ceftriaxone Sodium 50 ml @ 100 mls/hr DAILY@09 IV 01/21/25 09:00 Future Hold 01/24/25 09:33 100 MLS/HR Potassium Chloride/Dextrose/ Sod Cl 1,000 ml @ 120 mls/hr Q8H20M IV 01/25/25 09:00 Cefazolin Sodium 50 ml @ 100 mls/hr Q8H IV 01/25/25 13:00 Metronidazole 100 ml @ 100 mls/hr Q8HR IV 01/25/25 14:00 Hydromorphone HCl 1 mg Q3HPRN PRN IV 01/25/25 09:00 Ondansetron HCl 4 mg Q4HPRN PRN IV 01/25/25 09:00 01/25/25 10:53 4 MG Pantoprazole Sodium 40 mg DAILY IV 01/25/25 10:00 01/25/25 09:34 40 MG objective General Appearance: Alert, Oriented X3, No acute distress Lungs: Clear to auscultation, Normal air movement, Other Cardiovascular: Regular rate, Normal S1, Normal S2, No murmurs, Gallops, Rubs, Other Abdomen: Soft, dressing dry; right lower quadrant RICKY drain laboratory and microbiology Laboratory Tests 01/25/25 05:03 Test 01/25/25 05:03 Range/Units Serum Glucose 97 74-106 mg/dL Problems(with codes): (1) Appendiceal tumor (2) Lower abdominal pain (3) Black stools (4) Cecum mass Prognosis Plan Keep NPO ; NG tube to low intermittent suction IV fluid hydration IV antibiotics IV Clinimix Surgical follow up Await pathology results Dietary Evaluation Review Comments: 1) Consider TPN per pharmacy 2) Advance diet as medically feasible 3) Monitor NPO status, lab values, weight trend, and I/O Expected Outcomes/Goals: To meet >75% estimated needs GI symptoms to improve Fu 2-3 days Plan discussed with: Patient, Other (Dr Mueller) CINDA CHEEK MD Jan 25, 2025 12:10
[2025-01-25] MEDS: D5W/SOD CHL 0.45%/KCL 20MEQ 1,000 ML IV SCH (12:44)
--- NOTE | 2025-01-25 13:08 | ECG ---
[facility] Test Date: 2025-01-25 Test Time: 10:05:00 Pat Name: WANDA LORA Department: Room: 0279T Gender: F Teacher Education Director: ABHIJEET : 1955 Requested By: MIGUEL GREEN Order Number: [id number] Reading MD: Wilfredo Rivas Measurements Intervals Cando Rate: 48 P: 33 ME: 144 QRS: 15 QRSD: 86 T: 64 QT: 512 QTc: 457 Interpretive Statements Marked sinus bradycardia T wave abnormality, consider anterior ischemia Electronically Signed On 01-29-2025 13:18:55 PDT by Wilfredo Rivas Please click the below link to view image of tracing.
--- NOTE | 2025-01-25 13:50 | DVHINCON2 ---
Date Seen: Jan 25, 2025 Referring Physician MD Prem Reason for Consultation Bradycardia History of Present Illness This is a 69-year-old female patient who presents to the emergency room with chief complaint of abdominal cramping and black tarry stools for three weeks. 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 Today, the patient underwent an exploratory laparotomy with right hemicolectomy. Postprocedure, the OR nurses noted that the patient was bradycardic. Initial twelve lead electrocardiogram done during emergency room arrival revealed a normal sinus rhythm. A twelve lead electrocardiogram was taken postprocedure in the postop area and revealed sinus bradycardia without any pauses or atrioventricular blocks. At the time of bedside assessment, the patient is back in a normal sinus rhythm on hospital monitor. The patient denies any cardiac symptoms such as chest pain, shortness of breath, palpitations, etc. Significant past medical history includes hypertension, dyslipidemia, lupus, and history of tobacco use. Past Medical History Past medical history reviewed. No other significant than mentioned above. Past Surgical History Hysterectomy Hiatal hernia repair Family History: Colon cancer G8 FATHER FH: prostate cancer G8 BROTHER FH: uterine cancer G8 MOTHER Family History Family history reviewed. Social History Patient has a five pack-year history, quit smoking approximately 17 years ago Denies any illicit drug use Denies any alcohol use Allergies: Coded Allergies: NO KNOWN ALLERGIES (Unverified , 01/19/25) Home Meds Reported Medications Atorvastatin Calcium (Lipitor) 20 Mg Tab, 1 TAB PO DAILY, #90 TAB 1 Refill 01/19/25 Cholecalciferol (D3) 50 Mcg Tab, 50 MCG PO, TAB 01/19/25 Hydrochlorothiazide (Hydrochlorothiazide) 12.5 Mg Cap, 1 CAP PO DAILY, #30 CAP 5 Refills 01/19/25 Phytonadione (Vitamin K) 100 Mcg Tab, 100 MCG PO, TAB 01/19/25 Magnesium Oxide (MAGNESIUM OXIDE) 400 Mg Tab, 1 TAB PO DAILY, #30 TAB 5 Refills 01/19/25 Milk Thistle (Silybum Marianum (MILK THISTLE) 1,000 Mg Cap, 1000 MG OR, CAP 01/19/25 Cyanocobalamin (B12) 1,000 Mcg Cap, 1000 MCG PO, CAP 01/19/25 Docusate Sodium (Colace) 100 Mg Cap, 100 CAP PO BID, #30 CAP 01/19/25 Home Meds Home medications reviewed. Current Medications Current Medications Medications (Trade) Dose Ordered Sig/Lilian Route PRN Reason Start Time Stop Time Status Last Admin Metoclopramide HCl (Reglan Injection) 10 mg ONCE PRN IV NAUSEA / VOMITING 01/25/25 07:30 01/25/25 09:35 DC 01/25/25 09:34 Hydromorphone HCl (Dilaudid Injection) 0.5 mg Q10M PRN IV SEVERE PAIN (7-10 PAIN SCALE) 01/25/25 07:30 01/25/25 10:00 DC 01/25/25 10:54 Morphine Sulfate 2 mg Q4H PRN IV BREAKTHRU PAIN SCALE 7-10 01/25/25 07:30 01/25/25 11:31 DC Hydromorphone HCl (Dilaudid Injection) 0.25 mg Q10M PRN IV MODERATE PAIN (4-6 PAIN SCALE) 01/25/25 07:30 01/25/25 10:00 DC Morphine Sulfate 1 mg Q30M PRN IV SEVERE PAIN (7-10 PAIN SCALE) 01/25/25 10:00 01/25/25 12:01 DC 01/25/25 10:29 Potassium Chloride/Dextrose/ Sod Cl 1,000 ml @ 120 mls/hr Q8H20M IV 01/25/25 09:00 01/25/25 12:44 Cefazolin Sodium 50 ml @ 100 mls/hr Q8H IV 01/25/25 13:00 Metronidazole 100 ml @ 100 mls/hr Q8HR IV 01/25/25 14:00 Hydromorphone HCl (Dilaudid Injection) 1 mg Q3HPRN PRN IV SEVERE PAIN (7-10 PAIN SCALE) 01/25/25 09:00 Ondansetron HCl (Zofran) 4 mg Q4HPRN PRN IV NAUSEA / VOMITING 01/25/25 09:00 01/25/25 10:53 Pantoprazole Sodium (Protonix) 40 mg DAILY IV 01/25/25 10:00 01/25/25 12:48 Review of Systems Constitutional: No symptom reported Ears, Nose, & Throat: No symptom reported Eyes: No symptom reported Neurological: No symptoms reported Pulmonary/Respiratory: No symptoms reported Cardiovascular: No symptom reported Gastrointestinal: Abdominal cramping, black tarry stool Genitourinary: No symptom reported Musculoskeletal: No symptom reported Skin: No symptom reported Psychiatric: No symptom reported Endocrine: No symptom reported Hematologic/Lymphatic: No symptom reported Vital Signs Vital Signs Date Time Temp Pulse Resp B/P (MAP) Pulse Ox O2 Delivery O2 Flow Rate FiO2 01/25/25 12:08 17 Nasal Cannula* 4 36 01/25/25 10:54 50 120/49 01/25/25 10:30 97 01/25/25 05:00 98.0 98.0 Physical Exam General Appearance: Cooperative. Well-developed. Well-nourished. No acute distress. Pulmonary/Respiratory: Clear, bilateral breaths sounds. Cardiovascular/Chest: Regular rate and rhythm. Peripheral Pulses: 2+ Radial (R). 2+ Radial (L). 2+ Pedal (R). 2+ Pedal (L) Abdominal Exam: Abdominal binder in place Ankle Exam: Negative ankle edema Lower extremities: Negative lower extremity edema Neuro/Mental Status: A/OX4, coherent. Thoughts/Psych: Normal thought pattern. Appropriate mood and affect. Good judgment and insight. Appearance: No acute distress. Skin Exam: Skin warm and dry Labs/Diagnostic Data Labs Test 01/25/25 05:03 01/24/25 12:25 01/21/25 05:56 01/20/25 04:00 Range/Units White Blood Count 5.5 4.4-10.8 10^3/uL Red Blood Count 4.32 4.0-5.20 10^6/uL Hemoglobin 13.8 12.2-16.2 g/dL Hematocrit 38.8 36.0-46.0 % Mean Corpuscular Volume 89.9 80.0-100.0 fL Mean Corpuscular Hemoglobin 31.9 28.0-32.0 pg Mean Corpuscular Hemoglobin Concent 35.5 32.0-36.0 g/dL Red Cell Distribution Width 12.7 11.8-14.3 % Platelet Count 504 H 140-450 10^3/uL Mean Platelet Volume 7.8 6.9-10.8 fL Neutrophils (%) (Auto) 62.7 37.0-80.0 % Lymphocytes (%) (Auto) 26.1 10.0-50.0 % Monocytes (%) (Auto) 8.3 0.0-12.0 % Eosinophils (%) (Auto) 1.9 0.0-7.0 % Basophils (%) (Auto) 1.0 0.0-2.0 % Neutrophils # (Auto) 3.5 1.6-8.6 10 ^3/uL Lymphocytes # (Auto) 1.4 0.4-5.4 10 ^3/uL Monocytes # (Auto) 0.5 0-1.3 10 ^3/uL Eosinophils # (Auto) 0.1 0-0.8 10 ^3/uL Basophils # (Auto) 0.1 0-0.2 10 ^3/uL Nucleated Red Blood Cells 0.0 % Prothrombin Time 10.9 9.3-11.8 sec Prothrombin Time INR 1.03 0.9-1.15 Sodium Level 141 136-145 mmol/L Potassium Level 4.0 3.5-5.1 mmol/L Chloride Level 105 98-107 mmol/L Carbon Dioxide Level 28 20-31 mmol/L Anion Gap 8 5-15 Blood Urea Nitrogen < 5 L 9-23 mg/dL Creatinine 0.60 0.550-1.02 mg/dL Glomerular Filtration Rate Calc 98 >90 mL/min BUN/Creatinine Ratio 8.3 L 10.0-20.0 Serum Glucose 97 74-106 mg/dL Calcium Level 9.4 8.7-10.4 mg/dL Total Bilirubin 0.3 0.2-1.0 mg/dL Aspartate Amino Transferase (AST) 12 L 13-40 U/L Alanine Aminotransferase (ALT) 9 7-40 U/L Alkaline Phosphatase 78 46-116 U/L Total Protein 6.6 5.7-8.2 g/dL Albumin 4.0 3.2-4.8 g/dL Activated Partial Thromboplast Time 26.4 24.5-34.5 SEC Carcinoembryonic Antigen 0.62 <=5.0 ng/mL Influenza Type A Antigen Negative Negative Influenza Type B Antigen Negative Negative SARS-CoV-2 Antigen (Rapid) Negative NEGATIVE Test 01/19/25 20:00 01/19/25 15:14 01/19/25 06:16 01/19/25 05:06 Range/Units Stool Occult Blood Negative Negative Stool Occult Blood Sample #3 Negative Tumor Marker Alpha Fetoprotein <1.8 0.0-9.2 ng/mL CA 19-9 Antigen 25 0-35 U/mL CA 125 Antigen 13.3 0.0-38.1 U/mL Urine Color Light-yellow Yellow Urine Clarity Clear Clear Urine pH 6.5 5.0-9.0 Urine Specific [place] 1.010 1.001-1.035 Urine Protein Negative Negative Urine Ketones Negative Negative Urine Blood Negative Negative /uL Urine Nitrite Negative Negative Urine Bilirubin Negative Negative Urine Urobilinogen Normal Negative mg/dL Urine Leukocyte Esterase Negative Negative /uL Urine RBC <1 0 - 4 /hpf Urine Microscopic WBC 1 0-5 /HPF Urine Squamous Epithelial Cells Few <5 /hpf Urine Bacteria None seen None Seen /hpf Urine Glucose Normal Normal mg/dL Urine Opiates Screen Neg NEGATIVE Urine Fentanyl Screen Neg NEGATIVE Urine Barbiturates Screen Neg NEGATIVE Urine Phencyclidine Screen Neg NEGATIVE Urine Amphetamines Screen Neg NEGATIVE Urine Benzodiazepines Screen Neg NEGATIVE Urine Cocaine Screen Neg NEGATIVE Urine Cannabinoids Screen Neg NEGATIVE Hemoglobin A1c 5.4 <5.7 % A1C Magnesium Level 1.9 1.6-2.6 mg/dL Lipase 26 12-53 U/L Vitamin B12 Level 1418 H 211-911 pg/mL Vitamin D 25-Hydroxy 61.6 30.0-100 ng/mL Thyroid Stimulating Hormone (TSH) 4.34 0.55-4.78 uIU/mL Assessment Transient bradycardia, now normal sinus rhythm Rule out structural heart disease 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 Mckee): Case discussed with . We will proceed with obtaining a transthoracic echocardiogram to evaluate cardiac function. satellite project site monitor reviewed and shows nonsustained episodes of sinus bradycardia without pauses or atrioventricular blocks. At the time of assessment, the patient is back in a normal sinus rhythm. Transient bradycardia likely secondary to anesthesia given that the patient underwent an exploratory laparotomy with right hemicolectomy today. In the setting of an unremarkable transthoracic echocardiogram, there is no further inpatient cardiac workup indicated at this time. Please reconsult if needed. Thank you for allowing us to care for this patient. Please call with any questions or concerns. Critical care time spent: 44 minutes This medical document was created using an electronic medical record system with voice recognition software and computerized dictation system. Although this document has been carefully reviewed, there might still be some phonetic and typographical errors. Occasional wrong-word or ``sound-alike substitutions may have occurred due to the inherent limitations of voice recognition software. These areas are purely typographical due to imperfections of the software programs and do not reflect any compromise in the patient's medical care. Ple ase read the chart carefully and recognize, using context, where these substitutions have occurred. Plan discussed with: Patient NYHA Physical activity limitations: NA Date of Service: Jan 25, 2025 Billing Provider: DONNA ALCAZAR Cardiology Common Codes: [id number] INP/OBS CARE (High) Cardiology Consultation Codes: [id number] CONSULT <45MIN DONNA ALCAZAR Jan 25, 2025 13:50
[2025-01-25] MEDS: ceFAZolin 1GM/50ML 50 ML IV SCH (14:01)
[2025-01-25] MEDS ORDERED: ONDANSETRON ODT 4 MG TAB PO PRN (18:00)
[2025-01-25] MEDS: KETOROLAC TROMETH 30 MG/ML 1ML VIAL IV PRN (21:57)
[2025-01-26] VITALS (8 sets, daily range): BP systolic 129–145; BP diastolic 56–83; PULSE 54–81; RESP 17–20; TEMP 96.7–100; O2SAT 92–96
[2025-01-26] MEDS: ONDANSETRON HCL 4 MG/2 ML VIAL IV PRN (00:27)
[2025-01-26 06:10] LABS: Hematocrit 35.2 % (36.0-46.0); Hemoglobin 12.2 g/dL (12.2-16.2); Mean Corpuscular Hemoglobin 30.7 pg (28.0-32.0); Mean Corpuscular Volume 88.8 fL (80.0-100.0); Nucleated Red Blood Cells % 0.1 %
[2025-01-26 06:16] LABS: Alanine Aminotransferase 10 U/L (7-40); Albumin 4.1 g/dL (3.2-4.8); Alkaline Phosphatase 73 U/L (46-116); Anion Gap 12 (5-15); BUN/Creatinine Ratio 11.7 (10.0-20.0); Calcium 9.1 mg/dL (8.7-10.4); Carbon Dioxide 26 mmol/L (20-31); Chloride 100 mmol/L (98-107); Potassium 3.9 mmol/L (3.5-5.1); Sodium 138 mmol/L (136-145); Total Protein 6.1 g/dL (5.7-8.2)
[2025-01-26 06:17] LABS: Bilirubin, Total 0.3 mg/dL (0.2-1.0)
[2025-01-26 06:18] LABS: Blood Urea Nitrogen 7 mg/dL (9-23); Glucose 107 mg/dL (74-106)
[2025-01-26] MEDS: HYDROmorphone HCL 2 MG/ML VL/or syr IV PRN (08:16)
--- NOTE | 2025-01-26 08:51 | DVHPN2 ---
Progress Note Date Seen: Jan 26, 2025 Medical Necessity Reason Pt with a Central, PICC or Fol: No Objective vital signs Vital Sign Date Time Temp Pulse Resp B/P (MAP) Pulse Ox O2 Delivery O2 Flow Rate FiO2 01/26/25 08:16 63 18 143/68 01/26/25 05:00 98.3 95 98.3 01/25/25 20:00 Nasal Cannula* 4 36 Total Intake and Output 01/25/25 01/25/25 01/26/25 15:00 23:00 07:00 Intake Total 150 ml 820 ml 200 ml Output Total 570 ml 525 ml 700 ml Balance -420 ml 295 ml -500 ml medications Current Medications Medications Dose Ordered Sig/Lilian Route Start Time Stop Time Status Last Admin Dose Admin Acetaminophen 500 mg Q4HPRN PRN PO 01/19/25 10:00 Acetaminophen/ Hydrocodone Bitart 1 tab Q4HPRN PRN PO 01/19/25 10:00 Ceftriaxone Sodium 50 ml @ 100 mls/hr DAILY@09 IV 01/21/25 09:00 Future Hold 01/25/25 12:52 100 MLS/HR Potassium Chloride/Dextrose/ Sod Cl 1,000 ml @ 120 mls/hr Q8H20M IV 01/25/25 09:00 01/26/25 02:05 120 MLS/HR Cefazolin Sodium 50 ml @ 100 mls/hr Q8H IV 01/25/25 13:00 01/26/25 05:16 100 MLS/HR Metronidazole 100 ml @ 100 mls/hr Q8HR IV 01/25/25 14:00 01/26/25 06:24 100 MLS/HR Hydromorphone HCl 1 mg Q3HPRN PRN IV 01/25/25 09:00 01/26/25 08:16 1 MG Pantoprazole Sodium 40 mg DAILY IV 01/25/25 10:00 01/25/25 12:48 40 MG Ondansetron HCl 4 mg Q4HP PRN PO 01/25/25 18:00 Ketorolac Tromethamine 15 mg Q8HPRN PRN IV 01/25/25 21:00 01/30/25 20:59 01/26/25 06:18 15 MG Ondansetron HCl 4 mg Q4HPRN PRN IV 01/26/25 00:30 01/26/25 05:28 4 MG laboratory and microbiology Laboratory Tests 01/26/25 05:42 Test 01/26/25 05:42 Range/Units Serum Glucose 107 H 74-106 mg/dL Problem List/Assessment/Plan Problem List/Assessment/Plan 01/20/25 69 YEAR OLD FEMALE WITH ANEMIA AND CT REPORTED POSSIBLE CECAL MASS. AWAITING COLONOSCOPY, CONVERSATION WITH PATIENT, NO EXAMINATION, HAVE EXPLAINED PROCESS AND POSSIBLE OPERATION DEPENDING ON FINDINGS. CONSULT WILL FOLLOW COLONOSCOPY. 01/23/25 DR CAMARA DID A COLONOSCOPY FOLLOWING WHICH SHE RELATED TO ME HER FINDINGS" NO CECAL MASS, APPENDICEAL OPENING INVERTED AND ERYTHEMATOUS, BIOPSIES TAKEN" I WILL REQUEST AND MRI TO R/O APPENDICEAL TUMOR, IF NEGATIVE MAY SUGGEST LAPAROSCOPIC APPENDECTOMY, IF POSITIVE PT WILL NEED RIGHT HEMICOLECTOMY. 01/24/25 MRI SCAN RESULTS DISCUSSED AND EXPLAINED TO PATIENT AND FAMILY AT BEDSIDE. WILL PROCEED WITH OPEN OPERATION AND PROBABLY RIGHT HEMICOLECTOMY TOMORROW. PROCEDURE RISKS AND COMPLICATIONS EXPLAINED IN DETAIL, ALL QUESTIONS ANSWERED 01/26/25 OPERATIVE FINDINGS WERE DISCUSSED WITH PATIENT, EXPLAINED THAT TO ME THE MASS APPEARED INFLAMMATION ADN CHRONIC INFECTION BUT WE WILL HAVE TO WAIT FOR THE REPORT FROM THE PATHOLOGIST FOR DEFINITIVE DIAGNOSIS. ABDOMEN IS APPROPRIATELY TENDER, WOUND CLEAN AND WELL APPROXIMATED, SHE NEEDS TO AMBULATE Plan discussed with: Patient, Other Dietary Evaluation Review Comments: 1) Consider TPN per pharmacy 2) Advance diet as medically feasible 3) Monitor NPO status, lab values, weight trend, and I/O Expected Outcomes/Goals: To meet >75% estimated needs GI symptoms to improve Fu 2-3 days DEMETRICE MATT MD Jan 26, 2025 08:51
--- NOTE | 2025-01-26 16:55 | DVHSR ---
APPROVED REPORT EXAM: Two-dimensional and M-mode echocardiogram with Doppler and color Doppler. Blood Pressure: 120/49 mmHg INDICATION Eval cardiac function RISK FACTORS Height: 65, Weight: 154 DIMENSIONS LVDd4.3 (3.8-5.7cm)LA (2D)4.3 (1.9-4.0cm)Aortic Root3.6 (2.0-3.7cm) LVDs2.6 (2.5-4.0cm)LA (MM) (1.9-4.0cm)Aortic Cusp Exc2.0 (1.5-2.0cm) EF (%) 70.0 (55-70%)Rt. Atrium3.8 (1.9-4.0cm)Asc. Aorta cm IVSd1.1 (0.7-1.1cm)RV (D) (1.8-2.4cm) PWd1.0 (0.7-1.1cm) Mitral Valve MitralMitral Stenosis E wave1.11m/sMV Mean GR.mmHg A wave0.89m/sMV Peak GR.mmHg E/A ratio1.22D MVAcm2 DECEL [id number] 1/2 [id number] IVRTmsDop MVA4.10cm2 Aortic Valve Aortic ValveAortic Stenosis V11.25m/Eduardo Mean GR.7mmHg V21.78m/Eduardo Peak GR.13mmHg LVOT Diameter2.1 (1.8-2.4cm)Doppler AVA2.43cm2 Pulmonic Valve V20.87m/s Other Information Technically limited study due to body habitus and patient position. Patient had binder on unable to do sub view. Conclusion lvef 65% mild LVH normal rv function left atrium enlarged no severe valve abnormalities noted
--- NOTE | 2025-01-26 19:09 | DVHPN2 ---
Subjective Overnight events noted patient is still has a NG tube patient is status post right hemicolectomy for cecal/appendiceal mass. Reviewed: Care Plan Changes from previous H/P or p: No Changes General: Per HPI Gastrointestinal: Abdominal Pain, Constipation, Melena Objective Vitals Vital Signs Date Time Temp Pulse Resp B/P (MAP) Pulse Ox O2 Delivery O2 Flow Rate FiO2 01/26/25 18:44 71 20 132/70 01/26/25 17:00 98.9 92 98.9 01/26/25 08:00 Nasal Cannula* 4 36 Intake/Output Intake and Output 01/26/25 07:00 Intake Total 1170 ml Output Total 1795 ml Balance -625 ml Intake Oral 200 ml IV Total 970 ml Output Urine Total 1600 ml Gastric Drainage Total 0 ml Drainage Total 195 ml # Bowel Movements 2 Exam HEENT pupils are reactive Neck is supple CV is S1-S2 regular rate and rhythm Respiratory bilateral clear GI positive bowel sounds once very sluggish Extremity no edema OCCUPATIONAL THERAPY AIDE no motor deficit General Appearance: Alert, Oriented X3, No acute distress Lungs: Clear to auscultation, Normal air movement, Other Cardiovascular: Regular rate, Normal S1, Normal S2, No murmurs, Gallops, Rubs, Other Abdomen: Normal bowel sounds, Soft, No tenderness, No hepatospenomegaly, No masses, Other Medications Current Medications Medications Dose Ordered Sig/Lilian Route Start Time Stop Time Status Last Admin Dose Admin Acetaminophen 500 mg Q4HPRN PRN PO 01/19/25 10:00 Acetaminophen/ Hydrocodone Bitart 1 tab Q4HPRN PRN PO 01/19/25 10:00 Ceftriaxone Sodium 50 ml @ 100 mls/hr DAILY@09 IV 01/21/25 09:00 Hold 01/25/25 12:52 100 MLS/HR Potassium Chloride/Dextrose/ Sod Cl 1,000 ml @ 120 mls/hr Q8H20M IV 01/25/25 09:00 01/26/25 18:32 120 MLS/HR Cefazolin Sodium 50 ml @ 100 mls/hr Q8H IV 01/25/25 13:00 01/26/25 12:16 100 MLS/HR Metronidazole 100 ml @ 100 mls/hr Q8HR IV 01/25/25 14:00 01/26/25 14:08 100 MLS/HR Hydromorphone HCl 1 mg Q3HPRN PRN IV 01/25/25 09:00 01/26/25 18:44 1 MG Pantoprazole Sodium 40 mg DAILY IV 01/25/25 10:00 01/25/25 12:48 40 MG Ondansetron HCl 4 mg Q4HP PRN PO 01/25/25 18:00 Ketorolac Tromethamine 15 mg Q8HPRN PRN IV 01/25/25 21:00 01/30/25 20:59 01/26/25 06:18 15 MG Ondansetron HCl 4 mg Q4HPRN PRN IV 01/26/25 00:30 01/26/25 18:44 4 MG Laboratory Results Laboratory Tests 01/26/25 05:42 Chemistry Test 01/26/25 05:42 Albumin 4.1 g/dL (3.2-4.8) Calcium Level 9.1 mg/dL (8.7-10.4) Total Protein 6.1 g/dL (5.7-8.2) LFT Test 01/26/25 05:42 Alanine Aminotransferase (ALT) 10 U/L (7-40) Alkaline Phosphatase 73 U/L (46-116) Aspartate Amino Transferase (AST) 13 U/L (13-40) Total Bilirubin 0.3 mg/dL (0.2-1.0) Urinalysis Test 01/19/25 06:16 Urine Color Light-yellow (Yellow) Urine Clarity Clear (Clear) Urine pH 6.5 (5.0-9.0) Urine Specific [place] 1.010 (1.001-1.035) Urine Protein Negative (Negative) Urine Ketones Negative (Negative) Urine Blood Negative /uL (Negative) Urine Nitrite Negative (Negative) Urine Bilirubin Negative (Negative) Urine Urobilinogen Normal mg/dL (Negative) Urine Leukocyte Esterase Negative /uL (Negative) Urine RBC <1 /hpf (0 - 4) Urine Microscopic WBC 1 /HPF (0-5) Urine Squamous Epithelial Cells Few /hpf (<5) Urine Bacteria None seen /hpf (None Seen) Urine Glucose Normal mg/dL (Normal) Assessment/Plan Assessment/Plan 69-year-old female with a known history of hypertension dyslipidemia initially presented to the hospital with a black stools found to have 1. Lower GI bleed scope suspected secondary to cecal/appendicular mass 2. Cecal/appendicular mass status post colonoscopy with a evidence of appendiceal/cecal mass highly suspicious for malignancy status post biopsy 3. Exploratory laparotomy with right hemicolectomy for cecal/appendiceal mass, still on NG tube and NPO 4. Hypertension 5. Dyslipidemia -continue NG tube, IV antibiotics, GI General surgery follow up. Plan discussed with: Patient Date of Service: Jan 26, 2025 Billing Provider: ROBERT ANGULO MD Common Visit Codes: [id number] INP/OBS CARE(MOD) ROBERT ANGULO MD Jan 26, 2025 19:09
[2025-01-27] VITALS (7 sets, daily range): BP systolic 133–142; BP diastolic 73–88; PULSE 73–83; RESP 15–19; TEMP 97.8–98.8; O2SAT 90–94
--- NOTE | 2025-01-27 09:36 | MEDREC ---
[facility] Intervention Section I [facility] Intervention: Duplication of therapy (DUPLICATION CEFTRIAXONE / CEFAZOLIN - PLEASE CONSIDER D/C ONE OF THEM ) WOLF VARGAS PHARMACIST Jan 27, 2025 09:36
[2025-01-27] MEDS: ENOXAPARIN SOD 40 MG/0.4 ML SYRINGE SC SCH (10:00)
--- NOTE | 2025-01-27 10:44 | DVHPN2 ---
Subjective Date Seen: Jan 27, 2025 Post op day Post op day: 2 Patient reports: No new complaints, Feels better Nursing reports: No new complaints General: Normal HNT: Normal Cardiovascular: Normal Respiratory: Normal Gastrointestinal: Vomiting Genitourinary: Normal Musculoskeletal: Normal Neurological: Normal Objective Vitals Vital Sign Date Time Temp Pulse Resp B/P (MAP) Pulse Ox O2 Delivery O2 Flow Rate FiO2 01/27/25 10:36 77 18 139/82 01/27/25 09:00 97.8 90 97.8 01/27/25 08:00 Room Air* 0 21 Total Intake and Output 01/26/25 01/26/25 01/27/25 15:00 23:00 07:00 Intake Total 50 ml 650 ml Output Total 850 ml 550 ml Balance 50 ml -200 ml -550 ml Medications Current Medications Medications Dose Ordered Sig/Lilian Route Start Time Stop Time Status Last Admin Dose Admin Acetaminophen 500 mg Q4HPRN PRN PO 01/19/25 10:00 Acetaminophen/ Hydrocodone Bitart 1 tab Q4HPRN PRN PO 01/19/25 10:00 Ceftriaxone Sodium 50 ml @ 100 mls/hr DAILY@09 IV 01/21/25 09:00 Hold 01/25/25 12:52 100 MLS/HR Potassium Chloride/Dextrose/ Sod Cl 1,000 ml @ 120 mls/hr Q8H20M IV 01/25/25 09:00 01/27/25 05:24 120 MLS/HR Cefazolin Sodium 50 ml @ 100 mls/hr Q8H IV 01/25/25 13:00 01/27/25 05:22 100 MLS/HR Metronidazole 100 ml @ 100 mls/hr Q8HR IV 01/25/25 14:00 01/27/25 05:24 100 MLS/HR Hydromorphone HCl 1 mg Q3HPRN PRN IV 01/25/25 09:00 01/27/25 10:36 1 MG Pantoprazole Sodium 40 mg DAILY IV 01/25/25 10:00 01/27/25 10:34 40 MG Ondansetron HCl 4 mg Q4HP PRN PO 01/25/25 18:00 Ketorolac Tromethamine 15 mg Q8HPRN PRN IV 01/25/25 21:00 01/30/25 20:59 01/26/25 06:18 15 MG Ondansetron HCl 4 mg Q4HPRN PRN IV 01/26/25 00:30 01/27/25 05:23 4 MG Enoxaparin Sodium 40 mg DAILY SC 01/27/25 10:00 General: Normal, Well developed Head/Eyes: Normal ENT: Normal Neck: Normal Lungs: Normal Cardiovascular: Normal, Regular rate and rhythm Abdominal: Normal, Soft Musculoskeletal: Normal Extremities: Normal Labs and Microbiology Laboratory Tests 01/26/25 05:42 Test 01/26/25 05:42 Range/Units Serum Glucose 107 H 74-106 mg/dL Ass/Plan Labs and/or images reviewed: Labs reviewed by me, Image(s) reviewed by me Problem List 01/20/25 69 YEAR OLD FEMALE WITH ANEMIA AND CT REPORTED POSSIBLE CECAL MASS. AWAITING COLONOSCOPY, CONVERSATION WITH PATIENT, NO EXAMINATION, HAVE EXPLAINED PROCESS AND POSSIBLE OPERATION DEPENDING ON FINDINGS. CONSULT WILL FOLLOW COLONOSCOPY. 01/23/25 DR CAMARA DID A COLONOSCOPY FOLLOWING WHICH SHE RELATED TO ME HER FINDINGS" NO CECAL MASS, APPENDICEAL OPENING INVERTED AND ERYTHEMATOUS, BIOPSIES TAKEN" I WILL REQUEST AND MRI TO R/O APPENDICEAL TUMOR, IF NEGATIVE MAY SUGGEST LAPAROSCOPIC APPENDECTOMY, IF POSITIVE PT WILL NEED RIGHT HEMICOLECTOMY. 01/24/25 MRI SCAN RESULTS DISCUSSED AND EXPLAINED TO PATIENT AND FAMILY AT BEDSIDE. WILL PROCEED WITH OPEN OPERATION AND PROBABLY RIGHT HEMICOLECTOMY TOMORROW. PROCEDURE RISKS AND COMPLICATIONS EXPLAINED IN DETAIL, ALL QUESTIONS ANSWERED 01/26/25 OPERATIVE FINDINGS WERE DISCUSSED WITH PATIENT, EXPLAINED THAT TO ME THE MASS APPEARED INFLAMMATION ADN CHRONIC INFECTION BUT WE WILL HAVE TO WAIT FOR THE REPORT FROM THE PATHOLOGIST FOR DEFINITIVE DIAGNOSIS. ABDOMEN IS APPROPRIATELY TENDER, WOUND CLEAN AND WELL APPROXIMATED, SHE NEEDS TO AMBULATE Assessment/Plan date: 01/27/2025 s/p Exploratory laparotomy, Right hemicolectomy POD#2 review of systems: - Reports feeling great with no new complaints. Denies nausea and vomiting. Reports no passage of flatus or bowel movement, which is an expected finding at this stage. physical exam: - Observed sitting up in bed. - Abdomen is soft, non-distended, and appropriately tender on palpation. - Surgical wounds are clean, dry, and intact with lillian in place. - RICKY drain with serous fluid output. plan: - Continue with current treatment regimen. - Maintain nasogastric (NG) tube to low continuous suction. - Maintain RICKY drain to bulb suction. - Continue NPO (nothing by mouth) status. Prognosis: Good Plan discussed with patient, Dr. Mueller Visit Coding Surgery Date of Service if different f: Jan 27, 2025 Billing Provider: DEMETRICE MUELLER MD Surgery Visit Codes: [id number] INP/OBS CARE(HIGH) MONALISA CARLIN [employer] MAKING MACHINE TENDER Jan 27, 2025 10:44
--- NOTE | 2025-01-27 18:23 | DVHPN2 ---
Subjective Overnight events noted patient is still has a NG tube patient is status post right hemicolectomy for cecal/appendiceal mass. Patient states she is burping but no flatus or any bowel movement yet. Reviewed: Care Plan Changes from previous H/P or p: No Changes General: Per HPI Gastrointestinal: Abdominal Pain, Constipation, Melena Objective Vitals Vital Signs Date Time Temp Pulse Resp B/P (MAP) Pulse Ox O2 Delivery O2 Flow Rate FiO2 01/27/25 17:30 98.6 81 18 133/73 (93) 90 98.6 01/27/25 08:00 Room Air* 0 21 Intake/Output Intake and Output 01/27/25 07:00 Intake Total 700 ml Output Total 1400 ml Balance -700 ml Intake Oral 500 ml IV Total 200 ml Output Urine Total 1350 ml Gastric Drainage Total 50 ml # Voids 4 Exam HEENT pupils are reactive Neck is supple CV is S1-S2 regular rate and rhythm Respiratory bilateral clear GI positive bowel sounds once very sluggish Extremity no edema 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 General Appearance: Alert, Oriented X3, No acute distress Lungs: Clear to auscultation, Normal air movement, Other Cardiovascular: Regular rate, Normal S1, Normal S2, No murmurs, Gallops, Rubs, Other Abdomen: Normal bowel sounds, Soft, No tenderness, No hepatospenomegaly, No masses, Other Medications Current Medications Medications Dose Ordered Sig/Lilian Route Start Time Stop Time Status Last Admin Dose Admin Acetaminophen 500 mg Q4HPRN PRN PO 01/19/25 10:00 Acetaminophen/ Hydrocodone Bitart 1 tab Q4HPRN PRN PO 01/19/25 10:00 Ceftriaxone Sodium 50 ml @ 100 mls/hr DAILY@09 IV 01/21/25 09:00 Hold 01/25/25 12:52 100 MLS/HR Potassium Chloride/Dextrose/ Sod Cl 1,000 ml @ 120 mls/hr Q8H20M IV 01/25/25 09:00 01/27/25 10:56 120 MLS/HR Cefazolin Sodium 50 ml @ 100 mls/hr Q8H IV 01/25/25 13:00 01/27/25 13:15 100 MLS/HR Metronidazole 100 ml @ 100 mls/hr Q8HR IV 01/25/25 14:00 01/27/25 14:52 100 MLS/HR Hydromorphone HCl 1 mg Q3HPRN PRN IV 01/25/25 09:00 01/27/25 15:01 1 MG Pantoprazole Sodium 40 mg DAILY IV 01/25/25 10:00 01/27/25 10:34 40 MG Ondansetron HCl 4 mg Q4HP PRN PO 01/25/25 18:00 Ketorolac Tromethamine 15 mg Q8HPRN PRN IV 01/25/25 21:00 01/30/25 20:59 01/26/25 06:18 15 MG Ondansetron HCl 4 mg Q4HPRN PRN IV 01/26/25 00:30 01/27/25 14:58 4 MG Enoxaparin Sodium 40 mg DAILY SC 01/27/25 10:00 Laboratory Results Laboratory Tests 01/26/25 05:42 Urinalysis Test 01/19/25 06:16 Urine Color Light-yellow (Yellow) Urine Clarity Clear (Clear) Urine pH 6.5 (5.0-9.0) Urine Specific [place] 1.010 (1.001-1.035) Urine Protein Negative (Negative) Urine Ketones Negative (Negative) Urine Blood Negative /uL (Negative) Urine Nitrite Negative (Negative) Urine Bilirubin Negative (Negative) Urine Urobilinogen Normal mg/dL (Negative) Urine Leukocyte Esterase Negative /uL (Negative) Urine RBC <1 /hpf (0 - 4) Urine Microscopic WBC 1 /HPF (0-5) Urine Squamous Epithelial Cells Few /hpf (<5) Urine Bacteria None seen /hpf (None Seen) Urine Glucose Normal mg/dL (Normal) Assessment/Plan Assessment/Plan 69-year-old female with a known history of hypertension dyslipidemia initially presented to the hospital with a black stools found to have 1. Lower GI bleed scope suspected secondary to cecal/appendicular mass 2. Cecal/appendicular mass status post colonoscopy with a evidence of appendiceal/cecal mass highly suspicious for malignancy status post biopsy 3. Exploratory laparotomy with right hemicolectomy for cecal/appendiceal mass, still on NG tube and NPO 4. Hypertension 5. Dyslipidemia -continue NG tube, IV antibiotics, GI General surgery follow up. -duty GI prophylaxis, physical therapy evaluation and treatment. Plan discussed with: Patient My Orders Orders - ROBERT ANGULO MD Procedure Category Date Status Time Enoxaparin Sodium PHA 01/27/25 In Process (Lovenox) 10:00 Date of Service: Jan 27, 2025 Billing Provider: ROBERT ANGULO MD Common Visit Codes: [id number] INP/OBS CARE(MOD) ROBERT ANGULO MD Jan 27, 2025 18:23
[2025-01-28] VITALS (8 sets, daily range): BP systolic 128–147; BP diastolic 79–89; PULSE 75–88; RESP 16–18; TEMP 97.9–98.6; O2SAT 91–98
[2025-01-28] MEDS ORDERED: CLINIMIX PER PHARMACY 0 ML IV SCH (10:15)
--- NOTE | 2025-01-28 10:22 | DVHPN2 ---
Subjective Patient doing well, no pain, seen at bedside today Reviewed: Care Plan Changes from previous H/P or p: No Changes General: Per HPI Gastrointestinal: Abdominal Pain, Constipation, Melena Objective Vitals Vital Signs Date Time Temp Pulse Resp B/P (MAP) Pulse Ox O2 Delivery O2 Flow Rate FiO2 01/28/25 10:05 80 18 146/80 01/28/25 05:00 98.2 96 98.2 01/27/25 20:00 Room Air* 0 21 Intake/Output Intake and Output 01/28/25 07:00 Intake Total 450 ml Output Total 575 ml Balance -125 ml Intake Oral 0 ml IV Total 450 ml Output Urine Total 575 ml Exam GEN: Healthy appearing, well-developed, NAD. HEENT: NC/AT; MMM. CV: RRR, no m/r/g. LUNGS: CTAB, no w/r/c. ABD: Soft, NT/ND, NBS, no masses or organomegaly. Midline vertical abdominal score, infraumbilical with serosanguineous output, J tube is with bilious output. EXT: skin Warm, well perfused. no rashes. No clubbing, cyanosis, or edema. NEURO: Ambulating with no limitations. No focal deficits. General Appearance: Alert, Oriented X3, No acute distress Lungs: Clear to auscultation, Normal air movement, Other Cardiovascular: Regular rate, Normal S1, Normal S2, No murmurs, Gallops, Rubs, Other Abdomen: Normal bowel sounds, Soft, No tenderness, No hepatospenomegaly, No masses, Other Medications Current Medications Medications Dose Ordered Sig/Lilian Route Start Time Stop Time Status Last Admin Dose Admin Acetaminophen 500 mg Q4HPRN PRN PO 01/19/25 10:00 Acetaminophen/ Hydrocodone Bitart 1 tab Q4HPRN PRN PO 01/19/25 10:00 Ceftriaxone Sodium 50 ml @ 100 mls/hr DAILY@09 IV 01/21/25 09:00 Hold 01/25/25 12:52 100 MLS/HR Potassium Chloride/Dextrose/ Sod Cl 1,000 ml @ 120 mls/hr Q8H20M IV 01/25/25 09:00 01/27/25 10:56 120 MLS/HR Cefazolin Sodium 50 ml @ 100 mls/hr Q8H IV 01/25/25 13:00 01/28/25 04:08 100 MLS/HR Metronidazole 100 ml @ 100 mls/hr Q8HR IV 01/25/25 14:00 01/28/25 05:16 100 MLS/HR Hydromorphone HCl 1 mg Q3HPRN PRN IV 01/25/25 09:00 01/28/25 10:05 1 MG Pantoprazole Sodium 40 mg DAILY IV 01/25/25 10:00 01/28/25 10:04 40 MG Ondansetron HCl 4 mg Q4HP PRN PO 01/25/25 18:00 Ketorolac Tromethamine 15 mg Q8HPRN PRN IV 01/25/25 21:00 01/30/25 20:59 01/26/25 06:18 15 MG Ondansetron HCl 4 mg Q4HPRN PRN IV 01/26/25 00:30 01/28/25 10:04 4 MG Enoxaparin Sodium 40 mg DAILY SC 01/27/25 10:00 Amino Acids 0 ml @ 0 mls/hr PER PHARMACY IV 01/28/25 10:15 UNV Laboratory Results Laboratory Tests 01/26/25 05:42 Urinalysis Test 01/19/25 06:16 Urine Color Light-yellow (Yellow) Urine Clarity Clear (Clear) Urine pH 6.5 (5.0-9.0) Urine Specific [place] 1.010 (1.001-1.035) Urine Protein Negative (Negative) Urine Ketones Negative (Negative) Urine Blood Negative /uL (Negative) Urine Nitrite Negative (Negative) Urine Bilirubin Negative (Negative) Urine Urobilinogen Normal mg/dL (Negative) Urine Leukocyte Esterase Negative /uL (Negative) Urine RBC <1 /hpf (0 - 4) Urine Microscopic WBC 1 /HPF (0-5) Urine Squamous Epithelial Cells Few /hpf (<5) Urine Bacteria None seen /hpf (None Seen) Urine Glucose Normal mg/dL (Normal) Labs and/or images reviewed: Labs reviewed by me, Image(s) reviewed by me Assessment/Plan Assessment/Plan Ms Carrasquillo is a 69-year-old female with hiatal hernia repair 1 year back, SLE in remission, hypertension, hyperlipidemia fibromyalgia, degenerative disc disease and chronic back pain, neuropathic, who presented to the ER with a chief complaint of semi-solid tarry black stools for the past 4 days along with weight loss for the past 3 weeks. Patient reports lower abdominal diffuse pain for the past 3 weeks, crampy in nature, she also had a urinary infection 2 weeks back, patient thought it was a flu infection, but she developed generalized weakness, fatigue, low appetite and weight loss of about 8 lb in the past 3 weeks. She has a history of chronic constipation, reports noticing tarry black stools for the past 4-5 days, she reports low-grade fever and chills 1 week back. No recent travel history or sick contacts Patient had hiatal hernia surgery 1 year back [facility] [place] Last colonoscopy was April 20, 2023, 1 8 mm polyp in the ascending colon, 1 3 mm polyp in the rectum, nonbleeding internal hemorrhoids, patient is unaware of pathology results 01/21: Patient doing well, no further bloody bowel movements. Patient is anxious about the comment of mass on CT. Likely rectosigmoidoscopy tomorrow with GI. 01/22: Patient is likely going to OR today for GI procedure. Otherwise doing well. 01/23: GI report had inversion/protrusion of appendix, GI had updated surgery. Surgery is getting MRI appendix today. We will follow up with surgery for care plan after imaging. All cancer marker levels were negative (CEA, CA 125, CA 19/9). 01/24: MRI was concerning for mass in cecum/appendix seal region. Surgery aware and wants to take for OR for ascending hemicolectomy, patient is NPO and NPO midnight until surgery. 01/25: pt taken for likely hemicolectomy today. surgery to determine diet plan after surgery patient.. Patient doing well after surgery tolerance very well, there was some bradycardia after surgery cardiology was consulted. After surgery patient is NPO NG tube on continuous suction, she has maintenance IV fluids per surgery. Patient to be stabilized over weekend as postop stabilization. Continuing IV antibiotics. 01/28: Over weekend patient not tolerating clear liquid diet converted to NPO, continue NG tube. Made NPO yesterday. No good intake for 3 days, today we will encourage ambulation, remove Christy, start PPN, intermittent IV fluids for hydration. Waiting for passing gas to advanced towards discharge plan Diagnosis: Lower GI bleed, rule out active bleed Cecal mass 3 x 3 cm Internal hemorrhoids History of colonic and rectal polyps Nonbleeding internal hemorrhoids history of descending colon 8 mm and rectal 3 mm polyp-path results unknown Unintentional weight loss Generalized weakness Chronic constipation Right-sided hydronephrosis Hypertension History of dyslipidemia History of fibromyalgia History of degenerative disc disease and neuropathic pain History of SLE-in remission Plan: - Plan for GI to take for colonoscopy /sigmoidoscopy on 01/22 or 01/23. -CT abdomen with IV contrast showed 3.6 x 3.4 x 3.5 cm questionable mass at the cecum with cecal inflammation. -MRI concerning for cecal/appendiceal mass. -Hemicolectomy 01/25 - colonoscopy concerning for inverted appendix stump. Biopsy taken. -IV Protonix -NPO -IV fluids -continue other home medications, Lipitor. Hold home hydrochlorothiazide - hold anticoagulation as risk for bleed. Med surge Full code Plan discussed with: Patient My Orders Orders - SENDY FARRELL MD Procedure Category Date Status Time Lactated Ringer's PHA 01/28/25 In Process 10:15 Clinimix Per Pharmacy PHA 01/28/25 Pending 10:15 Date of Service: Jan 28, 2025 Billing Provider: SENDY FARRELL MD Common Visit Codes: [id number] INP/OBS CARE(HIGH) SENDY FARRELL MD Jan 28, 2025 10:22
--- NOTE | 2025-01-28 10:43 | DVHPN2 ---
Progress Note Date Seen: Jan 28, 2025 Medical Necessity Reason Pt with a Central, PICC or Fol: No Objective vital signs Vital Sign Date Time Temp Pulse Resp B/P (MAP) Pulse Ox O2 Delivery O2 Flow Rate FiO2 01/28/25 10:05 80 18 146/80 01/28/25 05:00 98.2 96 98.2 01/27/25 20:00 Room Air* 0 21 Total Intake and Output 01/27/25 01/27/25 01/28/25 15:00 23:00 07:00 Intake Total 50 ml 250 ml 150 ml Output Total 300 ml 275 ml Balance 50 ml -50 ml -125 ml medications Current Medications Medications Dose Ordered Sig/Lilian Route Start Time Stop Time Status Last Admin Dose Admin Acetaminophen 500 mg Q4HPRN PRN PO 01/19/25 10:00 Acetaminophen/ Hydrocodone Bitart 1 tab Q4HPRN PRN PO 01/19/25 10:00 Ceftriaxone Sodium 50 ml @ 100 mls/hr DAILY@09 IV 01/21/25 09:00 Hold 01/25/25 12:52 100 MLS/HR Potassium Chloride/Dextrose/ Sod Cl 1,000 ml @ 120 mls/hr Q8H20M IV 01/25/25 09:00 01/27/25 10:56 120 MLS/HR Cefazolin Sodium 50 ml @ 100 mls/hr Q8H IV 01/25/25 13:00 01/28/25 04:08 100 MLS/HR Metronidazole 100 ml @ 100 mls/hr Q8HR IV 01/25/25 14:00 01/28/25 05:16 100 MLS/HR Hydromorphone HCl 1 mg Q3HPRN PRN IV 01/25/25 09:00 01/28/25 10:05 1 MG Pantoprazole Sodium 40 mg DAILY IV 01/25/25 10:00 01/28/25 10:04 40 MG Ondansetron HCl 4 mg Q4HP PRN PO 01/25/25 18:00 Ketorolac Tromethamine 15 mg Q8HPRN PRN IV 01/25/25 21:00 01/30/25 20:59 01/26/25 06:18 15 MG Ondansetron HCl 4 mg Q4HPRN PRN IV 01/26/25 00:30 01/28/25 10:04 4 MG Enoxaparin Sodium 40 mg DAILY SC 01/27/25 10:00 Amino Acids 0 ml @ 0 mls/hr PER PHARMACY IV 01/28/25 10:15 UNV laboratory and microbiology Laboratory Tests 01/26/25 05:42 Test 01/26/25 05:42 Range/Units Serum Glucose 107 H 74-106 mg/dL Problem List/Assessment/Plan Problem List/Assessment/Plan 01/20/25 69 YEAR OLD FEMALE WITH ANEMIA AND CT REPORTED POSSIBLE CECAL MASS. AWAITING COLONOSCOPY, CONVERSATION WITH PATIENT, NO EXAMINATION, HAVE EXPLAINED PROCESS AND POSSIBLE OPERATION DEPENDING ON FINDINGS. CONSULT WILL FOLLOW COLONOSCOPY. 01/23/25 DR CAMARA DID A COLONOSCOPY FOLLOWING WHICH SHE RELATED TO ME HER FINDINGS" NO CECAL MASS, APPENDICEAL OPENING INVERTED AND ERYTHEMATOUS, BIOPSIES TAKEN" I WILL REQUEST AND MRI TO R/O APPENDICEAL TUMOR, IF NEGATIVE MAY SUGGEST LAPAROSCOPIC APPENDECTOMY, IF POSITIVE PT WILL NEED RIGHT HEMICOLECTOMY. 01/24/25 MRI SCAN RESULTS DISCUSSED AND EXPLAINED TO PATIENT AND FAMILY AT BEDSIDE. WILL PROCEED WITH OPEN OPERATION AND PROBABLY RIGHT HEMICOLECTOMY TOMORROW. PROCEDURE RISKS AND COMPLICATIONS EXPLAINED IN DETAIL, ALL QUESTIONS ANSWERED 01/26/25 OPERATIVE FINDINGS WERE DISCUSSED WITH PATIENT, EXPLAINED THAT TO ME THE MASS APPEARED INFLAMMATION ADN CHRONIC INFECTION BUT WE WILL HAVE TO WAIT FOR THE REPORT FROM THE PATHOLOGIST FOR DEFINITIVE DIAGNOSIS. ABDOMEN IS APPROPRIATELY TENDER, WOUND CLEAN AND WELL APPROXIMATED, SHE NEEDS TO AMBULATE 01/28/25 doinf well, ambulated, no nausea, no flatus or bm, abdomen appropriately tender, wound clean and well approximates Plan discussed with: Patient Dietary Evaluation Review Comments: 1) Consider TPN per pharmacy 2) Advance diet as medically feasible 3) Monitor NPO status, lab values, weight trend, and I/O Expected Outcomes/Goals: To meet >75% estimated needs GI symptoms to improve Fu 2-3 days DEMETRICE MATT MD Jan 28, 2025 10:43
[2025-01-28 11:04] LABS: Hematocrit 40.3 % (36.0-46.0); Hemoglobin 13.6 g/dL (12.2-16.2); Mean Corpuscular Hemoglobin 30.8 pg (28.0-32.0); Mean Corpuscular Volume 91.1 fL (80.0-100.0); Nucleated Red Blood Cells % 0.0 %
[2025-01-28 11:09] LABS: Alanine Aminotransferase 9 U/L (7-40); Albumin 3.9 g/dL (3.2-4.8); Alkaline Phosphatase 81 U/L (46-116); Anion Gap 10 (5-15); BUN/Creatinine Ratio 15.5 (10.0-20.0); Bilirubin, Total 0.4 mg/dL (0.2-1.0); Blood Urea Nitrogen 9 mg/dL (9-23); Calcium 9.0 mg/dL (8.7-10.4); Carbon Dioxide 30 mmol/L (20-31); Chloride 101 mmol/L (98-107); Glucose 94 mg/dL (74-106); Potassium 4.0 mmol/L (3.5-5.1); Sodium 141 mmol/L (136-145); Total Protein 5.7 g/dL (5.7-8.2)
[2025-01-28 12:10] LABS: Magnesium 1.8 mg/dL (1.6-2.6)
[2025-01-28] MEDS: LACTATED RINGER'S 500 ML IV ONE (12:30)
[2025-01-28] MEDS: AMINO ACID INFUSION IN D10W 1,000 ML IV SCH (22:12)
--- NOTE | 2025-01-28 22:12 | DVHPN2 ---
Progress Note - Dictate Date Seen: Jan 28, 2025 Medical Necessity Reason Pt with a Central, PICC or Fol: No Subjective Postop day 3. S/P exploratory laparotomy and right hemicolectomy POSTOPERATIVE DIAGNOSIS: Inflammatory or malignant mass adjacent to the cecum, emanating from the appendix. Patient seen at bedside sleeping comfortably No bowel activity yet, last bowel activity recorded is on 01/26 vital signs Vital Sign Date Time Temp Pulse Resp B/P (MAP) Pulse Ox O2 Delivery O2 Flow Rate FiO2 01/28/25 21:00 98.5 87 17 147/85 (105) 92 98.5 01/28/25 20:00 Room Air* 0 21 Total Intake and Output 01/27/25 01/27/25 01/28/25 15:00 23:00 07:00 Intake Total 50 ml 250 ml 150 ml Output Total 300 ml 275 ml Balance 50 ml -50 ml -125 ml medications Current Medications Medications Dose Ordered Sig/Lilian Route Start Time Stop Time Status Last Admin Dose Admin Acetaminophen 500 mg Q4HPRN PRN PO 01/19/25 10:00 Ceftriaxone Sodium 50 ml @ 100 mls/hr DAILY@09 IV 01/21/25 09:00 Hold 01/25/25 12:52 100 MLS/HR Cefazolin Sodium 50 ml @ 100 mls/hr Q8H IV 01/25/25 13:00 01/28/25 21:02 100 MLS/HR Metronidazole 100 ml @ 100 mls/hr Q8HR IV 01/25/25 14:00 01/28/25 21:02 100 MLS/HR Hydromorphone HCl 1 mg Q3HPRN PRN IV 01/25/25 09:00 01/28/25 15:05 1 MG Pantoprazole Sodium 40 mg DAILY IV 01/25/25 10:00 01/28/25 10:04 40 MG Ondansetron HCl 4 mg Q4HP PRN PO 01/25/25 18:00 Ketorolac Tromethamine 15 mg Q8HPRN PRN IV 01/25/25 21:00 01/30/25 20:59 01/26/25 06:18 15 MG Ondansetron HCl 4 mg Q4HPRN PRN IV 01/26/25 00:30 01/28/25 15:05 4 MG Enoxaparin Sodium 40 mg DAILY SC 01/27/25 10:00 Amino Acids 0 ml @ 0 mls/hr PER PHARMACY IV 01/28/25 10:15 Diagnostic Test (Pha) 1 strip Q6HR 01/29/25 00:00 Insulin Human Regular FOLLOW SLIDING SCALE Q6HR SC 01/29/25 00:00 Dextrose 50 ml UD IV 01/29/25 00:00 Amino Acids/ Electrolytes/ Dextrose 1,000 ml @ 41 mls/hr DAILY@2200 IV 01/28/25 22:00 objective General Appearance: Alert, Oriented X3, No acute distress Lungs: Clear to auscultation, Normal air movement, Other Cardiovascular: Regular rate, Normal S1, Normal S2, No murmurs, Gallops, Rubs, Other Abdomen: Soft, dressing dry; right lower quadrant RICKY drain laboratory and microbiology Laboratory Tests 01/28/25 10:30 Test 01/28/25 10:30 Range/Units Serum Glucose 94 74-106 mg/dL Problems(with codes): (1) Appendiceal tumor (2) Lower abdominal pain (3) Black stools (4) Cecum mass Prognosis Plan Patient is NPO IV fluid hydration IV TPN NG tube to low intermittent suction Surgical follow up Await final pathology results Once the patient passes gas we can clamp NG-tube and give her a trial of ice chips as per surgical consult Out of bed to chair, physical therapy can be initiated Dietary Evaluation Review Comments: 1) Consider TPN per pharmacy 2) Advance diet as medically feasible 3) Monitor NPO status, lab values, weight trend, and I/O Expected Outcomes/Goals: To meet >75% estimated needs GI symptoms to improve Fu 2-3 days Plan discussed with: Patient CINDA CHEEK MD Jan 28, 2025 22:12
[2025-01-28] MEDS: POTASSIUM CHL 20MEQ/100ML 100 ML IV SCH (22:30)
[2025-01-29] VITALS (8 sets, daily range): BP systolic 129–160; BP diastolic 84–99; PULSE 61–80; RESP 16–18; TEMP 97.7–98.7; O2SAT 91–94
[2025-01-29] MEDS ORDERED: DEXTROSE (50%) 50ML SYRG IV SCH
[2025-01-29] MEDS: InsuLIN REG 1unit/0.01ml Soln (100units/ml) SC SCH (00:40)
[2025-01-29] MEDS: ACCU-CHEK COMFORT CURVE STRIP VI SCH (00:40)
[2025-01-29 06:57] LABS: Chloride 103.0 mmol/L (98-107); Sodium 141.0 mmol/L (136-145)
[2025-01-29 06:58] LABS: Anion Gap 10.0 (5-15); Carbon Dioxide 28.0 mmol/L (20-31)
[2025-01-29 07:03] LABS: Albumin 3.7 g/dL (3.2-4.8); BUN/Creatinine Ratio 20.4 (10.0-20.0); Blood Urea Nitrogen 10.0 mg/dL (9-23); Chloride 104 mmol/L (98-107); Potassium 3.9 mmol/L (3.5-5.1); Sodium 139 mmol/L (136-145)
[2025-01-29 07:04] LABS: Anion Gap 8 (5-15); Carbon Dioxide 27 mmol/L (20-31); Magnesium 1.9 mg/dL (1.6-2.6)
[2025-01-29 07:10] LABS: BUN/Creatinine Ratio 28.6 (10.0-20.0); Blood Urea Nitrogen 14 mg/dL (9-23)
[2025-01-29 07:21] LABS: Calcium 8.5 mg/dL (8.7-10.4); Glucose 108.0 mg/dL (74-106); Potassium 3.3 mmol/L (3.5-5.1)
[2025-01-29 07:22] LABS: Calcium 8.5 mg/dL (8.7-10.4); Glucose 107 mg/dL (74-106)
--- NOTE | 2025-01-29 10:12 | DVHPN2 ---
Progress Note Date Seen: Jan 29, 2025 Resident Creating Document: JAMES GARCIA RESIDENT Medical Necessity Reason Pt with a Central, PICC or Fol: No Subjective Review of Systems 69-year-old female with past medical history of hiatal hernia repair 1 year ago in [place], SLE in remission, hypertension, hyperlipidemia, fibromyalgia, degenerative disc disease and chronic back pain, who initially came to the ER due to semi-solid tarry black stools. CT abdomen pelvis showed 3.6 x 3.4 x 3.5 cm questionable mass at the cecum with cecal inflammation, mild right hydronephrosis without stone seen. Patient subsequently underwent exploratory laparotomy with right hemicolectomy, shortly after patient continued to have NG tube with continuous suction, however, eventually became unable to tolerate a clear liquid diet requiring continuation of NG tube along with NPO. Patient seen and examined at bedside today notes her NG tube accidentally came out NG tube noted to have 650 mL of light green output overnight RICKY drain noted to have 60 mL of serosanguineous output overnight Patient notes mild nausea Notes she has not been able to pass gas or bowel movement yet Denies any abdominal pain Notices some bloating Objective vital signs Vital Sign Date Time Temp Pulse Resp B/P (MAP) Pulse Ox O2 Delivery O2 Flow Rate FiO2 01/29/25 07:30 Room Air* 0 21 01/29/25 05:00 98.3 73 17 150/84 (106) 92 98.3 Total Intake and Output 01/28/25 01/28/25 01/29/25 15:00 23:00 07:00 Intake Total 50 ml 600 ml 328 ml Output Total 760 ml 190 ml 1060 ml Balance -710 ml 410 ml -732 ml medications Current Medications Medications Dose Ordered Sig/Lilian Route Start Time Stop Time Status Last Admin Dose Admin Acetaminophen 500 mg Q4HPRN PRN PO 01/19/25 10:00 Ceftriaxone Sodium 50 ml @ 100 mls/hr DAILY@09 IV 01/21/25 09:00 Hold 01/25/25 12:52 100 MLS/HR Cefazolin Sodium 50 ml @ 100 mls/hr Q8H IV 01/25/25 13:00 01/29/25 04:43 100 MLS/HR Metronidazole 100 ml @ 100 mls/hr Q8HR IV 01/25/25 14:00 01/29/25 05:26 100 MLS/HR Hydromorphone HCl 1 mg Q3HPRN PRN IV 01/25/25 09:00 01/29/25 03:42 1 MG Pantoprazole Sodium 40 mg DAILY IV 01/25/25 10:00 01/29/25 09:09 40 MG Ondansetron HCl 4 mg Q4HP PRN PO 01/25/25 18:00 Ketorolac Tromethamine 15 mg Q8HPRN PRN IV 01/25/25 21:00 01/30/25 20:59 01/26/25 06:18 15 MG Ondansetron HCl 4 mg Q4HPRN PRN IV 01/26/25 00:30 01/29/25 03:41 4 MG Enoxaparin Sodium 40 mg DAILY SC 01/27/25 10:00 Amino Acids 0 ml @ 0 mls/hr PER PHARMACY IV 01/28/25 10:15 Diagnostic Test (Pha) 1 strip Q6HR 01/29/25 00:00 01/29/25 05:26 1 STRIP Insulin Human Regular FOLLOW SLIDING SCALE Q6HR SC 01/29/25 00:00 Dextrose 50 ml UD IV 01/29/25 00:00 Amino Acids/ Electrolytes/ Dextrose 1,000 ml @ 41 mls/hr DAILY@2200 IV 01/28/25 22:00 01/28/25 22:12 41 MLS/HR Potassium Chloride 100 ml @ 50 mls/hr Q2H IV 01/29/25 09:45 01/29/25 13:44 UNV Examination General Appearance: Cooperative. Well developed. Well nourished. NAD Head Exam: Normal inspection Neck Exam: Normal inspection. Non-tender. Normal alignment Pulmonary/Respiratory: Chest non-tender. Clear bilateral breath sounds, no crackles, no wheezing. Cardiovascular/Chest: Regular rate and rhythm. No murmurs. No JVD. Peripheral Pulses: 2+ Radial (R). 2+ Radial (L). 2+ Pedal (R). 2+ Pedal (L) Abdominal Exam: Normal bowel sounds. Soft. normal abdomen, no visible veins, Nontender. Vertical surgical scar, clean and dry. RICKY drain 60 mL serosanguineous output overnight. Neuro/Mental Status: A&O x4. Coherent. Skin Exam: Normal inspection. Normal color. Warm. 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 [id number] tortuosity of the colon. Black stools, melena Urinary retention with right-sided hydronephrosis History of SLE, in remission History of colonic polyps with unknown pathology results Internal hemorrhoids Plan: NPO Continue IV fluids Clinimix Continue antibiotics IV Protonix Awaiting final pathology results, patient aware NG tube came out, primary team plan to hold NG tube placement as patient having minimal nausea Encourage out of bed to chair, physical therapy can be initiated Thank you so much for the opportunity to consult on your patient. GI team will follow the patient. In case of any questions or concerns please feel free to reach out. Plan discussed with . The patient and caregiver team agreed to the plan. Plan discussed with: Patient, Other (RN) Dietary Evaluation Review Comments: 1) Consider TPN per pharmacy 2) Advance diet as medically feasible 3) Monitor NPO status, lab values, weight trend, and I/O Expected Outcomes/Goals: To meet >75% estimated needs GI symptoms to improve Fu 2-3 days JAMES GARCIA RESIDENT Jan 29, 2025 10:12
--- NOTE | 2025-01-29 11:42 | DVHPN2 ---
Subjective Patient doing well, no pain, seen at bedside today Reviewed: Care Plan Changes from previous H/P or p: No Changes General: Per HPI Gastrointestinal: Abdominal Pain, Constipation, Melena Objective Vitals Vital Signs Date Time Temp Pulse Resp B/P (MAP) Pulse Ox O2 Delivery O2 Flow Rate FiO2 01/29/25 09:00 98.1 62 16 160/89 (112) 93 98.1 01/29/25 07:30 Room Air* 0 21 Intake/Output Intake and Output 01/29/25 07:00 Intake Total 978 ml Output Total 2010 ml Balance -1032 ml Intake Oral 0 ml IV Total 978 ml Output Urine Total 750 ml Gastric Drainage Total 800 ml Drainage Total 160 ml Other 300 ml # Voids 2 Exam GEN: Healthy appearing, well-developed, NAD. HEENT: NC/AT; MMM. CV: RRR, no m/r/g. LUNGS: CTAB, no w/r/c. ABD: Soft, NT/ND, NBS, no masses or organomegaly. Midline vertical abdominal score, infraumbilical with serosanguineous output, J tube is with bilious output. EXT: skin Warm, well perfused. no rashes. No clubbing, cyanosis, or edema. NEURO: Ambulating with no limitations. No focal deficits. General Appearance: Alert, Oriented X3, No acute distress Lungs: Clear to auscultation, Normal air movement, Other Cardiovascular: Regular rate, Normal S1, Normal S2, No murmurs, Gallops, Rubs, Other Abdomen: Normal bowel sounds, Soft, No tenderness, No hepatospenomegaly, No masses, Other Medications Current Medications Medications Dose Ordered Sig/Lilian Route Start Time Stop Time Status Last Admin Dose Admin Acetaminophen 500 mg Q4HPRN PRN PO 01/19/25 10:00 Ceftriaxone Sodium 50 ml @ 100 mls/hr DAILY@09 IV 01/21/25 09:00 Hold 01/25/25 12:52 100 MLS/HR Cefazolin Sodium 50 ml @ 100 mls/hr Q8H IV 01/25/25 13:00 01/29/25 04:43 100 MLS/HR Metronidazole 100 ml @ 100 mls/hr Q8HR IV 01/25/25 14:00 01/29/25 05:26 100 MLS/HR Hydromorphone HCl 1 mg Q3HPRN PRN IV 01/25/25 09:00 01/29/25 03:42 1 MG Pantoprazole Sodium 40 mg DAILY IV 01/25/25 10:00 01/29/25 09:09 40 MG Ondansetron HCl 4 mg Q4HP PRN PO 01/25/25 18:00 Ketorolac Tromethamine 15 mg Q8HPRN PRN IV 01/25/25 21:00 01/30/25 20:59 01/26/25 06:18 15 MG Ondansetron HCl 4 mg Q4HPRN PRN IV 01/26/25 00:30 01/29/25 03:41 4 MG Enoxaparin Sodium 40 mg DAILY SC 01/27/25 10:00 Amino Acids 0 ml @ 0 mls/hr PER PHARMACY IV 01/28/25 10:15 Diagnostic Test (Pha) 1 strip Q6HR 01/29/25 00:00 01/29/25 05:26 1 STRIP Insulin Human Regular FOLLOW SLIDING SCALE Q6HR SC 01/29/25 00:00 Dextrose 50 ml UD IV 01/29/25 00:00 Amino Acids/ Electrolytes/ Dextrose 1,000 ml @ 41 mls/hr DAILY@2200 IV 01/28/25 22:00 01/28/25 22:12 41 MLS/HR Potassium Chloride 100 ml @ 50 mls/hr Q2H IV 01/29/25 09:45 01/29/25 13:44 Laboratory Results Laboratory Tests 01/28/25 10:30 01/29/25 05:52 Chemistry Test 01/29/25 05:52 Albumin 3.7 g/dL (3.2-4.8) Calcium Level 8.5 mg/dL (8.7-10.4) L Magnesium Level 1.9 mg/dL (1.6-2.6) Phosphorus Level 2.9 mg/dL (2.4-5.1) Urinalysis Test 01/19/25 06:16 Urine Color Light-yellow (Yellow) Urine Clarity Clear (Clear) Urine pH 6.5 (5.0-9.0) Urine Specific Parker 1.010 (1.001-1.035) Urine Protein Negative (Negative) Urine Ketones Negative (Negative) Urine Blood Negative /uL (Negative) Urine Nitrite Negative (Negative) Urine Bilirubin Negative (Negative) Urine Urobilinogen Normal mg/dL (Negative) Urine Leukocyte Esterase Negative /uL (Negative) Urine RBC <1 /hpf (0 - 4) Urine Microscopic WBC 1 /HPF (0-5) Urine Squamous Epithelial Cells Few /hpf (<5) Urine Bacteria None seen /hpf (None Seen) Urine Glucose Normal mg/dL (Normal) Labs and/or images reviewed: Labs reviewed by me, Image(s) reviewed by me Assessment/Plan Assessment/Plan Ms Carrasquillo is a 69-year-old female with hiatal hernia repair 1 year back, SLE in remission, hypertension, hyperlipidemia fibromyalgia, degenerative disc disease and chronic back pain, neuropathic, who presented to the ER with a chief complaint of semi-solid tarry black stools for the past 4 days along with weight loss for the past 3 weeks. Patient reports lower abdominal diffuse pain for the past 3 weeks, crampy in nature, she also had a urinary infection 2 weeks back, patient thought it was a flu infection, but she developed generalized weakness, fatigue, low appetite and weight loss of about 8 lb in the past 3 weeks. She has a history of chronic constipation, reports noticing tarry black stools for the past 4-5 days, she reports low-grade fever and chills 1 week back. No recent travel history or sick contacts Patient had hiatal hernia surgery 1 year back [facility] [place] Last colonoscopy was April 20, 2023, 1 8 mm polyp in the ascending colon, 1 3 mm polyp in the rectum, nonbleeding internal hemorrhoids, patient is unaware of pathology results 01/21: Patient doing well, no further bloody bowel movements. Patient is anxious about the comment of mass on CT. Likely rectosigmoidoscopy tomorrow with GI. 01/22: Patient is likely going to OR today for GI procedure. Otherwise doing well. 01/23: GI report had inversion/protrusion of appendix, GI had updated surgery. Surgery is getting MRI appendix today. We will follow up with surgery for care plan after imaging. All cancer marker levels were negative (CEA, CA 125, CA 19/9). 01/24: MRI was concerning for mass in cecum/appendix seal region. Surgery aware and wants to take for OR for ascending hemicolectomy, patient is NPO and NPO midnight until surgery. 01/25: pt taken for likely hemicolectomy today. surgery to determine diet plan after surgery patient.. Patient doing well after surgery tolerance very well, there was some bradycardia after surgery cardiology was consulted. After surgery patient is NPO NG tube on continuous suction, she has maintenance IV fluids per surgery. Patient to be stabilized over weekend as postop stabilization. Continuing IV antibiotics. 01/28: Over weekend patient not tolerating clear liquid diet converted to NPO, continue NG tube. Made NPO yesterday. No good intake for 3 days, today we will encourage ambulation, remove Christy, start PPN, intermittent IV fluids for hydration. Waiting for passing gas to advanced towards discharge plan 01/29: Patient doing well, Christy was removed yesterday but patient has started to develop retention again in Christy was reinserted. 300 cc was found on bladder scan before reinsertion. Continuing IV antibiotics. NG tube fell out but she has no nausea, bowel sounds present but still not passing gas. Surgery is updated. We will hold off reinserting NG tube unless nausea develops. GI following, appreciate surgical and GI follow up. stephanie drain with scant serosanguineous output. Incision healing well. Diagnosis: Lower GI bleed, rule out active bleed Cecal mass 3 x 3 cm Internal hemorrhoids History of colonic and rectal polyps Nonbleeding internal hemorrhoids history of descending colon 8 mm and rectal 3 mm polyp-path results unknown Unintentional weight loss Generalized weakness Chronic constipation Right-sided hydronephrosis Hypertension History of dyslipidemia History of fibromyalgia History of degenerative disc disease and neuropathic pain History of SLE-in remission Plan: - Plan for GI to take for colonoscopy /sigmoidoscopy on 01/22 or 01/23. -CT abdomen with IV contrast showed 3.6 x 3.4 x 3.5 cm questionable mass at the cecum with cecal inflammation. -MRI concerning for cecal/appendiceal mass. -Hemicolectomy 01/25 - colonoscopy concerning for inverted appendix stump. Biopsy taken. -IV Protonix -NPO -IV fluids -continue other home medications, Lipitor. Hold home hydrochlorothiazide - hold anticoagulation as risk for bleed. Med surge Full code Plan discussed with: Patient My Orders Orders - SENDY FARRELL MD Procedure Category Date Status Time Clinimix Per Pharmacy [facility] 01/28/25 In Process 22:00 Potassium Chl PHA 01/29/25 In Process 20meq/100ml 09:45 Comprehensive LAB 01/30/25 Verified Metabolic Panel 05:00 Magnesium LAB 01/30/25 Verified 05:00 Phosphorus LAB 01/30/25 Verified 05:00 Clinimix Per Pharmacy [facility] 01/29/25 In Process 22:00 Date of Service: Jan 29, 2025 Billing Provider: SENDY FARRELL MD Common Visit Codes: [id number] INP/OBS CARE(HIGH) SENDY FARRELL MD Jan 29, 2025 11:41
--- NOTE | 2025-01-29 13:50 | DVHPN2 ---
Progress Note Date Seen: Jan 29, 2025 Medical Necessity Reason Pt with a Central, PICC or Fol: No Objective vital signs Vital Sign Date Time Temp Pulse Resp B/P (MAP) Pulse Ox O2 Delivery O2 Flow Rate FiO2 01/29/25 12:31 75 15 159/99 01/29/25 09:00 98.1 93 98.1 01/29/25 07:30 Room Air* 0 21 Total Intake and Output 01/28/25 01/28/25 01/29/25 15:00 23:00 07:00 Intake Total 50 ml 600 ml 328 ml Output Total 760 ml 190 ml 1060 ml Balance -710 ml 410 ml -732 ml medications Current Medications Medications Dose Ordered Sig/Lilian Route Start Time Stop Time Status Last Admin Dose Admin Acetaminophen 500 mg Q4HPRN PRN PO 01/19/25 10:00 Ceftriaxone Sodium 50 ml @ 100 mls/hr DAILY@09 IV 01/21/25 09:00 Hold 01/25/25 12:52 100 MLS/HR Cefazolin Sodium 50 ml @ 100 mls/hr Q8H IV 01/25/25 13:00 01/29/25 13:00 100 MLS/HR Metronidazole 100 ml @ 100 mls/hr Q8HR IV 01/25/25 14:00 01/29/25 05:26 100 MLS/HR Hydromorphone HCl 1 mg Q3HPRN PRN IV 01/25/25 09:00 01/29/25 12:31 1 MG Pantoprazole Sodium 40 mg DAILY IV 01/25/25 10:00 01/29/25 09:09 40 MG Ondansetron HCl 4 mg Q4HP PRN PO 01/25/25 18:00 Ketorolac Tromethamine 15 mg Q8HPRN PRN IV 01/25/25 21:00 01/30/25 20:59 01/26/25 06:18 15 MG Ondansetron HCl 4 mg Q4HPRN PRN IV 01/26/25 00:30 01/29/25 12:30 4 MG Enoxaparin Sodium 40 mg DAILY SC 01/27/25 10:00 Amino Acids 0 ml @ 0 mls/hr PER PHARMACY IV 01/28/25 10:15 Diagnostic Test (Pha) 1 strip Q6HR 01/29/25 00:00 01/29/25 12:22 1 STRIP Insulin Human Regular FOLLOW SLIDING SCALE Q6HR SC 01/29/25 00:00 Dextrose 50 ml UD IV 01/29/25 00:00 Amino Acids/ Electrolytes/ Dextrose 1,000 ml @ 41 mls/hr DAILY@2200 IV 01/28/25 22:00 01/28/25 22:12 41 MLS/HR laboratory and microbiology Laboratory Tests 01/29/25 05:52 01/28/25 10:30 Test 01/29/25 05:52 Range/Units Serum Glucose 108 H 74-106 mg/dL Problem List/Assessment/Plan Problem List/Assessment/Plan 01/20/25 69 YEAR OLD FEMALE WITH ANEMIA AND CT REPORTED POSSIBLE CECAL MASS. AWAITING COLONOSCOPY, CONVERSATION WITH PATIENT, NO EXAMINATION, HAVE EXPLAINED PROCESS AND POSSIBLE OPERATION DEPENDING ON FINDINGS. CONSULT WILL FOLLOW COLONOSCOPY. 01/23/25 DR CAMARA DID A COLONOSCOPY FOLLOWING WHICH SHE RELATED TO ME HER FINDINGS" NO CECAL MASS, APPENDICEAL OPENING INVERTED AND ERYTHEMATOUS, BIOPSIES TAKEN" I WILL REQUEST AND MRI TO R/O APPENDICEAL TUMOR, IF NEGATIVE MAY SUGGEST LAPAROSCOPIC APPENDECTOMY, IF POSITIVE PT WILL NEED RIGHT HEMICOLECTOMY. 01/24/25 MRI SCAN RESULTS DISCUSSED AND EXPLAINED TO PATIENT AND FAMILY AT BEDSIDE. WILL PROCEED WITH OPEN OPERATION AND PROBABLY RIGHT HEMICOLECTOMY TOMORROW. PROCEDURE RISKS AND COMPLICATIONS EXPLAINED IN DETAIL, ALL QUESTIONS ANSWERED 01/26/25 OPERATIVE FINDINGS WERE DISCUSSED WITH PATIENT, EXPLAINED THAT TO ME THE MASS APPEARED INFLAMMATION ADN CHRONIC INFECTION BUT WE WILL HAVE TO WAIT FOR THE REPORT FROM THE PATHOLOGIST FOR DEFINITIVE DIAGNOSIS. ABDOMEN IS APPROPRIATELY TENDER, WOUND CLEAN AND WELL APPROXIMATED, SHE NEEDS TO AMBULATE 01/28/25 doinf well, ambulated, no nausea, no flatus or bm, abdomen appropriately tender, wound clean and well approximates 01/29/25 "NGT CAME OUT", she has not passed flatus, abdomen non distended, wound ok, keep npo am,bulate q 4 hours, i must be notified if she becomes nauseated or distended! Plan discussed with: Patient, Other Dietary Evaluation Review Comments: 1) Consider TPN per pharmacy 2) Advance diet as medically feasible 3) Monitor NPO status, lab values, weight trend, and I/O Expected Outcomes/Goals: To meet >75% estimated needs GI symptoms to improve Fu 2-3 days DEMETRICE MATT MD Jan 29, 2025 13:50
[2025-01-30] VITALS (8 sets, daily range): BP systolic 122–158; BP diastolic 75–91; PULSE 62–89; RESP 17–19; TEMP 97.8–98.7; O2SAT 93–96
[2025-01-30 07:07] LABS: Hematocrit 36.1 % (36.0-46.0); Hemoglobin 12.6 g/dL (12.2-16.2); Mean Corpuscular Hemoglobin 31.5 pg (28.0-32.0); Mean Corpuscular Volume 90.2 fL (80.0-100.0); Nucleated Red Blood Cells % 0.0 %
[2025-01-30 07:18] LABS: Albumin 3.6 g/dL (3.2-4.8); Alkaline Phosphatase 66 U/L (46-116); Anion Gap 9 (5-15); BUN/Creatinine Ratio 17.8 (10.0-20.0); Bilirubin, Total 0.4 mg/dL (0.2-1.0); Carbon Dioxide 27 mmol/L (20-31); Chloride 104 mmol/L (98-107); Glucose 93 mg/dL (74-106); Magnesium 1.9 mg/dL (1.6-2.6); Potassium 3.9 mmol/L (3.5-5.1); Sodium 140 mmol/L (136-145)
[2025-01-30 07:32] LABS: Alanine Aminotransferase < 9 U/L (7-40); Blood Urea Nitrogen 8 mg/dL (9-23); Calcium 8.6 mg/dL (8.7-10.4); Total Protein 5.5 g/dL (5.7-8.2)
[2025-01-30] MEDS: TAMSULOSIN HYDROCHLORIDE 0.4 MG CAP PO ONE (09:45)
--- NOTE | 2025-01-30 11:07 | DVHPN2 ---
Subjective Date Seen: Jan 30, 2025 Post op day Post op day: 5 Patient reports: No new complaints, Feels better Nursing reports: No new complaints General: Normal HNT: Normal Cardiovascular: Normal Respiratory: Normal Gastrointestinal: Vomiting Genitourinary: Normal Musculoskeletal: Normal Neurological: Normal Objective Vitals Vital Sign Date Time Temp Pulse Resp B/P (MAP) Pulse Ox O2 Delivery O2 Flow Rate FiO2 01/30/25 10:16 86 14 121/65 01/30/25 08:59 97.8 94 97.8 01/29/25 20:00 Room Air* 0 21 Total Intake and Output 01/29/25 01/29/25 01/30/25 15:00 23:00 07:00 Intake Total 150 ml 100 ml 328 ml Output Total 300 ml 800 ml Balance 150 ml -200 ml -472 ml Medications Current Medications Medications Dose Ordered Sig/Lilian Route Start Time Stop Time Status Last Admin Dose Admin Acetaminophen 500 mg Q4HPRN PRN PO 01/19/25 10:00 Cefazolin Sodium 50 ml @ 100 mls/hr Q8H IV 01/25/25 13:00 01/30/25 04:39 100 MLS/HR Metronidazole 100 ml @ 100 mls/hr Q8HR IV 01/25/25 14:00 01/30/25 06:05 100 MLS/HR Hydromorphone HCl 1 mg Q3HPRN PRN IV 01/25/25 09:00 01/30/25 10:16 1 MG Pantoprazole Sodium 40 mg DAILY IV 01/25/25 10:00 01/30/25 10:15 40 MG Ondansetron HCl 4 mg Q4HP PRN PO 01/25/25 18:00 Ketorolac Tromethamine 15 mg Q8HPRN PRN IV 01/25/25 21:00 01/30/25 20:59 01/26/25 06:18 15 MG Ondansetron HCl 4 mg Q4HPRN PRN IV 01/26/25 00:30 01/30/25 10:15 4 MG Enoxaparin Sodium 40 mg DAILY SC 01/27/25 10:00 Amino Acids 0 ml @ 0 mls/hr PER PHARMACY IV 01/28/25 10:15 Diagnostic Test (Pha) 1 strip Q6HR 01/29/25 00:00 01/30/25 06:29 1 STRIP Insulin Human Regular FOLLOW SLIDING SCALE Q6HR SC 01/29/25 00:00 Dextrose 50 ml UD IV 01/29/25 00:00 Amino Acids/ Electrolytes/ Dextrose 1,000 ml @ 41 mls/hr DAILY@2200 IV 01/28/25 22:00 01/29/25 21:29 41 MLS/HR Tamsulosin HCl 0.4 mg QPM PO 01/31/25 18:00 General: Normal, Well developed Head/Eyes: Normal ENT: Normal Neck: Normal Lungs: Normal Cardiovascular: Normal, Regular rate and rhythm Abdominal: Normal, Soft Musculoskeletal: Normal Extremities: Normal Labs and Microbiology Laboratory Tests 01/30/25 06:06 Test 01/30/25 06:06 Range/Units Serum Glucose 93 74-106 mg/dL Ass/Plan Labs and/or images reviewed: Labs reviewed by me, Image(s) reviewed by me Problem List 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 [id number] tortuosity of the colon. Black stools, melena Urinary retention with right-sided hydronephrosis History of SLE, in remission History of colonic polyps with unknown pathology results Internal hemorrhoids Plan: NPO Continue IV fluids Clinimix Continue antibiotics IV Protonix Awaiting final pathology results, patient aware NG tube came out, primary team plan to hold NG tube placement as patient having minimal nausea Encourage out of bed to chair, physical therapy can be initiated Thank you so much for the opportunity to consult on your patient. GI team will follow the patient. In case of any questions or concerns please feel free to reach out. Plan discussed with . The patient and caregiver team agreed to the plan. Assessment/Plan date: 01/27/2025 s/p Exploratory laparotomy, Right hemicolectomy POD#2 review of systems: - Reports feeling great with no new complaints. Denies nausea and vomiting. Reports no passage of flatus or bowel movement, which is an expected finding at this stage. physical exam: - Observed sitting up in bed. - Abdomen is soft, non-distended, and appropriately tender on palpation. - Surgical wounds are clean, dry, and intact with lillian in place. - RICKY drain with serous fluid output. plan: - Continue with current treatment regimen. - Maintain nasogastric (NG) tube to low continuous suction. - Maintain RICKY drain to bulb suction. - Continue NPO (nothing by mouth) status. date: 01/30/2025 s/p Exploratory laparotomy, Right hemicolectomy review of systems: - Reports feeling great with no new complaints. Denies nausea and vomiting. Reports no passage of flatus or bowel movement physical exam: - Abdomen is soft, non-distended, and appropriately tender on palpation. - Surgical wounds are clean, dry, and intact with lillian in place. - RICKY drain minimal serous fluid output. plan: - patient to ambulate - Continue with current treatment regimen. - Maintain RICKY drain to bulb suction. - Continue NPO (nothing by mouth) status. Prognosis: Good Plan discussed with patient , Dr. Mueller Visit Coding Surgery Date of Service if different f: Jan 30, 2025 Billing Provider: DEMETRICE MUELLER MD Surgery Visit Codes: [id number] INP/OBS CARE(HIGH) MONALISA CARLIN NEWBORN PHOTOGRAPHER Jan 30, 2025 11:07
[2025-01-30] MEDS: SODIUM CHLORIDE 0.9% 1,700 ML IV ONE (11:46)
--- NOTE | 2025-01-30 16:12 | DVHPN2 ---
Progress Note Date Seen: Jan 30, 2025 Resident Creating Document: JAMES GARCIA RESIDENT Medical Necessity Reason Pt with a Central, PICC or Fol: No Subjective Review of Systems 69-year-old female with past medical history of hiatal hernia repair 1 year ago in [place], SLE in remission, hypertension, hyperlipidemia, fibromyalgia, degenerative disc disease and chronic back pain, who initially came to the ER due to semi-solid tarry black stools. CT abdomen pelvis showed 3.6 x 3.4 x 3.5 cm questionable mass at the cecum with cecal inflammation, mild right hydronephrosis without stone seen. Patient subsequently underwent exploratory laparotomy with right hemicolectomy, shortly after patient continued to have NG tube with continuous suction, however, eventually became unable to tolerate a clear liquid diet requiring continuation of NG tube along with NPO. Patient seen and examined at bedside today Has not passed gas or had a bowel movement yet Positive bowel sounds 100 cc serosanguineous drainage in the RICKY drain Ambulating appropriately Objective vital signs Vital Sign Date Time Temp Pulse Resp B/P (MAP) Pulse Ox O2 Delivery O2 Flow Rate FiO2 01/30/25 13:00 98.0 89 19 145/87 (106) 93 98.0 01/29/25 20:00 Room Air* 0 21 Total Intake and Output 01/29/25 01/29/25 01/30/25 15:00 23:00 07:00 Intake Total 150 ml 100 ml 328 ml Output Total 300 ml 800 ml Balance 150 ml -200 ml -472 ml medications Current Medications Medications Dose Ordered Sig/Lilian Route Start Time Stop Time Status Last Admin Dose Admin Acetaminophen 500 mg Q4HPRN PRN PO 01/19/25 10:00 Cefazolin Sodium 50 ml @ 100 mls/hr Q8H IV 01/25/25 13:00 01/30/25 11:37 100 MLS/HR Metronidazole 100 ml @ 100 mls/hr Q8HR IV 01/25/25 14:00 01/30/25 14:01 100 MLS/HR Hydromorphone HCl 1 mg Q3HPRN PRN IV 01/25/25 09:00 01/30/25 10:16 1 MG Pantoprazole Sodium 40 mg DAILY IV 01/25/25 10:00 01/30/25 10:15 40 MG Ondansetron HCl 4 mg Q4HP PRN PO 01/25/25 18:00 Ketorolac Tromethamine 15 mg Q8HPRN PRN IV 01/25/25 21:00 01/30/25 20:59 01/26/25 06:18 15 MG Ondansetron HCl 4 mg Q4HPRN PRN IV 01/26/25 00:30 01/30/25 10:15 4 MG Enoxaparin Sodium 40 mg DAILY SC 01/27/25 10:00 Amino Acids 0 ml @ 0 mls/hr PER PHARMACY IV 01/28/25 10:15 Diagnostic Test (Pha) 1 strip Q6HR 01/29/25 00:00 01/30/25 11:37 1 STRIP Insulin Human Regular FOLLOW SLIDING SCALE Q6HR SC 01/29/25 00:00 Dextrose 50 ml UD IV 01/29/25 00:00 Amino Acids/ Electrolytes/ Dextrose 1,000 ml @ 41 mls/hr DAILY@2200 IV 01/28/25 22:00 01/29/25 21:29 41 MLS/HR Tamsulosin HCl 0.4 mg QPM PO 01/31/25 18:00 Examination General Appearance: Cooperative. Well developed. Well nourished. NAD Head Exam: Normal inspection Neck Exam: Normal inspection. Non-tender. Normal alignment Pulmonary/Respiratory: Chest non-tender. Clear bilateral breath sounds, no crackles, no wheezing. Cardiovascular/Chest: Regular rate and rhythm. No murmurs. No JVD. Peripheral Pulses: 2+ Radial (R). 2+ Radial (L). 2+ Pedal (R). 2+ Pedal (L) Abdominal Exam: Normal bowel sounds. Soft. normal abdomen, no visible veins, Nontender. Vertical surgical scar, clean and dry. RICKY drain 60 mL serosanguineous output overnight. Neuro/Mental Status: A&O x4. Coherent. Skin Exam: Normal inspection. Normal color. Warm. 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 Uewc-oh-ooicgxix tortuosity of the colon. Black stools, melena Urinary retention with right-sided hydronephrosis History of SLE, in remission History of colonic polyps with unknown pathology results Internal hemorrhoids Plan: NPO We recommend decreasing dose of narcotics to facilitate bowel movement Continue IV fluids Clinimix Continue antibiotics IV Protonix Awaiting final pathology results, patient aware NG tube came out, primary team plan to hold NG tube placement as patient having minimal nausea Encourage out of bed to chair, physical therapy can be initiated Thank you so much for the opportunity to consult on your patient. GI team will follow the patient. In case of any questions or concerns please feel free to reach out. Plan discussed with Dr. Hoffman Plan discussed with: Patient, Other (RN) Dietary Evaluation Review Comments: 1) Consider TPN per pharmacy 2) Advance diet as medically feasible 3) Monitor NPO status, lab values, weight trend, and I/O Expected Outcomes/Goals: To meet >75% estimated needs GI symptoms to improve Fu 2-3 days JAMES GARCIA RESIDENT Jan 30, 2025 16:12
--- NOTE | 2025-01-30 16:49 | DVHPN2 ---
Subjective Patient doing well, no pain, seen at bedside today Reviewed: Care Plan Changes from previous H/P or p: No Changes General: Per HPI Gastrointestinal: Abdominal Pain, Constipation, Melena Objective Vitals Vital Signs Date Time Temp Pulse Resp B/P (MAP) Pulse Ox O2 Delivery O2 Flow Rate FiO2 01/30/25 13:00 98.0 89 19 145/87 (106) 93 98.0 01/30/25 07:30 Room Air* 0 21 Intake/Output Intake and Output 01/30/25 07:00 Intake Total 578 ml Output Total 1150 ml Balance -572 ml Intake Oral 0 ml IV Total 578 ml Output Urine Total 1100 ml Drainage Total 50 ml Exam GEN: Healthy appearing, well-developed, NAD. HEENT: NC/AT; MMM. CV: RRR, no m/r/g. LUNGS: CTAB, no w/r/c. ABD: Soft, NT/ND, NBS, no masses or organomegaly. Midline vertical abdominal score, infraumbilical with serosanguineous output, J tube is with bilious output. EXT: skin Warm, well perfused. no rashes. No clubbing, cyanosis, or edema. NEURO: Ambulating with no limitations. No focal deficits. General Appearance: Alert, Oriented X3, No acute distress Lungs: Clear to auscultation, Normal air movement, Other Cardiovascular: Regular rate, Normal S1, Normal S2, No murmurs, Gallops, Rubs, Other Abdomen: Normal bowel sounds, Soft, No tenderness, No hepatospenomegaly, No masses, Other Medications Current Medications Medications Dose Ordered Sig/Lilian Route Start Time Stop Time Status Last Admin Dose Admin Acetaminophen 500 mg Q4HPRN PRN PO 01/19/25 10:00 Cefazolin Sodium 50 ml @ 100 mls/hr Q8H IV 01/25/25 13:00 01/30/25 11:37 100 MLS/HR Metronidazole 100 ml @ 100 mls/hr Q8HR IV 01/25/25 14:00 01/30/25 14:01 100 MLS/HR Hydromorphone HCl 1 mg Q3HPRN PRN IV 01/25/25 09:00 01/30/25 10:16 1 MG Pantoprazole Sodium 40 mg DAILY IV 01/25/25 10:00 01/30/25 10:15 40 MG Ondansetron HCl 4 mg Q4HP PRN PO 01/25/25 18:00 Ketorolac Tromethamine 15 mg Q8HPRN PRN IV 01/25/25 21:00 01/30/25 20:59 01/26/25 06:18 15 MG Ondansetron HCl 4 mg Q4HPRN PRN IV 01/26/25 00:30 01/30/25 10:15 4 MG Enoxaparin Sodium 40 mg DAILY SC 01/27/25 10:00 Amino Acids 0 ml @ 0 mls/hr PER PHARMACY IV 01/28/25 10:15 Diagnostic Test (Pha) 1 strip Q6HR 01/29/25 00:00 01/30/25 11:37 1 STRIP Insulin Human Regular FOLLOW SLIDING SCALE Q6HR SC 01/29/25 00:00 Dextrose 50 ml UD IV 01/29/25 00:00 Amino Acids/ Electrolytes/ Dextrose 1,000 ml @ 41 mls/hr DAILY@2200 IV 01/28/25 22:00 01/29/25 21:29 41 MLS/HR Tamsulosin HCl 0.4 mg QPM PO 01/31/25 18:00 Laboratory Results Laboratory Tests 01/30/25 06:06 Chemistry Test 01/30/25 06:06 Albumin 3.6 g/dL (3.2-4.8) Calcium Level 8.6 mg/dL (8.7-10.4) L Magnesium Level 1.9 mg/dL (1.6-2.6) Phosphorus Level 2.8 mg/dL (2.4-5.1) Total Protein 5.5 g/dL (5.7-8.2) L LFT Test 01/30/25 06:06 Alanine Aminotransferase (ALT) < 9 U/L (7-40) Alkaline Phosphatase 66 U/L (46-116) Aspartate Amino Transferase (AST) 9 U/L (13-40) L Total Bilirubin 0.4 mg/dL (0.2-1.0) Urinalysis Test 01/19/25 06:16 Urine Color Light-yellow (Yellow) Urine Clarity Clear (Clear) Urine pH 6.5 (5.0-9.0) Urine Specific [place] 1.010 (1.001-1.035) Urine Protein Negative (Negative) Urine Ketones Negative (Negative) Urine Blood Negative /uL (Negative) Urine Nitrite Negative (Negative) Urine Bilirubin Negative (Negative) Urine Urobilinogen Normal mg/dL (Negative) Urine Leukocyte Esterase Negative /uL (Negative) Urine RBC <1 /hpf (0 - 4) Urine Microscopic WBC 1 /HPF (0-5) Urine Squamous Epithelial Cells Few /hpf (<5) Urine Bacteria None seen /hpf (None Seen) Urine Glucose Normal mg/dL (Normal) Labs and/or images reviewed: Labs reviewed by me, Image(s) reviewed by me Assessment/Plan Assessment/Plan Ms Carrasquillo is a 69-year-old female with hiatal hernia repair 1 year back, SLE in remission, hypertension, hyperlipidemia fibromyalgia, degenerative disc disease and chronic back pain, neuropathic, who presented to the ER with a chief complaint of semi-solid tarry black stools for the past 4 days along with weight loss for the past 3 weeks. Patient reports lower abdominal diffuse pain for the past 3 weeks, crampy in nature, she also had a urinary infection 2 weeks back, patient thought it was a flu infection, but she developed generalized weakness, fatigue, low appetite and weight loss of about 8 lb in the past 3 weeks. She has a history of chronic constipation, reports noticing tarry black stools for the past 4-5 days, she reports low-grade fever and chills 1 week back. No recent travel history or sick contacts Patient had hiatal hernia surgery 1 year back with [facility] [place] Last colonoscopy was April 20, 2023, 1 8 mm polyp in the ascending colon, 1 3 mm polyp in the rectum, nonbleeding internal hemorrhoids, patient is unaware of pathology results 01/21: Patient doing well, no further bloody bowel movements. Patient is anxious about the comment of mass on CT. Likely rectosigmoidoscopy tomorrow with GI. 01/22: Patient is likely going to OR today for GI procedure. Otherwise doing well. 01/23: GI report had inversion/protrusion of appendix, GI had updated surgery. Surgery is getting MRI appendix today. We will follow up with surgery for care plan after imaging. All cancer marker levels were negative (CEA, CA 125, CA 19/9). 01/24: MRI was concerning for mass in cecum/appendix seal region. Surgery aware and wants to take for OR for ascending hemicolectomy, patient is NPO and NPO midnight until surgery. 01/25: pt taken for likely hemicolectomy today. surgery to determine diet plan after surgery patient.. Patient doing well after surgery tolerance very well, there was some bradycardia after surgery cardiology was consulted. After surgery patient is NPO NG tube on continuous suction, she has maintenance IV fluids per surgery. Patient to be stabilized over weekend as postop stabilization. Continuing IV antibiotics. 01/28: Over weekend patient not tolerating clear liquid diet converted to NPO, continue NG tube. Made NPO yesterday. No good intake for 3 days, today we will encourage ambulation, remove Christy, start PPN, intermittent IV fluids for hydration. Waiting for passing gas to advanced towards discharge plan 01/29: Patient doing well, Christy was removed yesterday but patient has started to develop retention again in Christy was reinserted. 300 cc was found on bladder scan before reinsertion. Continuing IV antibiotics. NG tube fell out but she has no nausea, bowel sounds present but still not passing gas. Surgery is updated. We will hold off reinserting NG tube unless nausea develops. GI following, appreciate surgical and GI follow up. stephanie drain with scant serosanguineous output. Incision healing well. 01/30: Patient without nausea, NG tube remaining out, no abdominal distention, continuous ambulating. Unable to give Flomax as patient is NPO and Christy remains inserted the patient continues to ambulate. Patient is ABX frustrated with slow progress, continues to have bowel sounds but still no passing gas. Surgery aware and following. STEPHANIE with scant output Diagnosis: Lower GI bleed, rule out active bleed Cecal mass 3 x 3 cm Internal hemorrhoids History of colonic and rectal polyps Nonbleeding internal hemorrhoids history of descending colon 8 mm and rectal 3 mm polyp-path results unknown Unintentional weight loss Generalized weakness Chronic constipation Right-sided hydronephrosis Hypertension History of dyslipidemia History of fibromyalgia History of degenerative disc disease and neuropathic pain History of SLE-in remission Plan: - Plan for GI to take for colonoscopy /sigmoidoscopy on 01/22 or 01/23. -CT abdomen with IV contrast showed 3.6 x 3.4 x 3.5 cm questionable mass at the cecum with cecal inflammation. -MRI concerning for cecal/appendiceal mass. -Hemicolectomy 01/25 - colonoscopy concerning for inverted appendix stump. Biopsy taken. -IV Protonix -NPO -IV fluids -continue other home medications, Lipitor. Hold home hydrochlorothiazide - hold anticoagulation as risk for bleed. Med surge Full code Plan discussed with: Patient My Orders Orders - SENDY FARRELL MD Procedure Category Date Status Time Comprehensive LAB 01/31/25 Verified Metabolic Panel 05:00 Magnesium LAB 01/31/25 Verified 05:00 Phosphorus LAB 01/31/25 Verified 05:00 Clinimix Per Pharmacy [facility] 01/30/25 In Process 22:00 Tamsulosin PHA 01/31/25 In Process Hydrochloride (Flomax) 18:00 Date of Service: Jan 30, 2025 Billing Provider: SENDY FARRELL MD Common Visit Codes: [id number] INP/OBS CARE(HIGH) SENDY FARRELL MD Jan 30, 2025 16:49
[2025-01-31] VITALS (7 sets, daily range): BP systolic 115–186; BP diastolic 54–99; PULSE 60–111; RESP 17–20; TEMP 98–98.2; O2SAT 92–97
[2025-01-31 09:33] LABS: Albumin 3.6 g/dL (3.2-4.8); Alkaline Phosphatase 63 U/L (46-116); Anion Gap 10 (5-15); BUN/Creatinine Ratio 11.1 (10.0-20.0); Bilirubin, Total 0.3 mg/dL (0.2-1.0); Carbon Dioxide 27 mmol/L (20-31); Chloride 103 mmol/L (98-107); Glucose 86 mg/dL (74-106); Magnesium 1.7 mg/dL (1.6-2.6); Potassium 3.6 mmol/L (3.5-5.1); Sodium 140 mmol/L (136-145); Total Protein 5.7 g/dL (5.7-8.2)
[2025-01-31 09:34] LABS: Alanine Aminotransferase < 9 U/L (7-40); Blood Urea Nitrogen 5 mg/dL (9-23); Calcium 8.5 mg/dL (8.7-10.4)
--- NOTE | 2025-01-31 10:44 | DVHPN2 ---
Progress Note Date Seen: Jan 31, 2025 Medical Necessity Reason Pt with a Central, PICC or Fol: No Objective vital signs Vital Sign Date Time Temp Pulse Resp B/P (MAP) Pulse Ox O2 Delivery O2 Flow Rate FiO2 01/31/25 09:00 98.0 62 18 178/86 (116) 96 98.0 01/31/25 07:50 Room Air* 0 21 Total Intake and Output 01/30/25 01/30/25 01/31/25 15:00 23:00 07:00 Intake Total 603 ml 250 ml 378 ml Output Total 75 ml 75 ml 1600 ml Balance 528 ml 175 ml -1222 ml medications Current Medications Medications Dose Ordered Sig/Lilian Route Start Time Stop Time Status Last Admin Dose Admin Acetaminophen 500 mg Q4HPRN PRN PO 01/19/25 10:00 Cefazolin Sodium 50 ml @ 100 mls/hr Q8H IV 01/25/25 13:00 01/31/25 05:15 100 MLS/HR Metronidazole 100 ml @ 100 mls/hr Q8HR IV 01/25/25 14:00 01/31/25 06:04 100 MLS/HR Hydromorphone HCl 1 mg Q3HPRN PRN IV 01/25/25 09:00 01/31/25 03:49 1 MG Pantoprazole Sodium 40 mg DAILY IV 01/25/25 10:00 01/31/25 09:57 40 MG Ondansetron HCl 4 mg Q4HP PRN PO 01/25/25 18:00 Ondansetron HCl 4 mg Q4HPRN PRN IV 01/26/25 00:30 01/31/25 03:43 4 MG Enoxaparin Sodium 40 mg DAILY SC 01/27/25 10:00 Amino Acids 0 ml @ 0 mls/hr PER PHARMACY IV 01/28/25 10:15 Diagnostic Test (Pha) 1 strip Q6HR 01/29/25 00:00 01/30/25 17:15 1 STRIP Insulin Human Regular FOLLOW SLIDING SCALE Q6HR SC 01/29/25 00:00 Dextrose 50 ml UD IV 01/29/25 00:00 Amino Acids/ Electrolytes/ Dextrose 1,000 ml @ 41 mls/hr DAILY@2200 IV 01/28/25 22:00 01/29/25 21:29 41 MLS/HR Tamsulosin HCl 0.4 mg QPM PO 01/31/25 18:00 laboratory and microbiology Laboratory Tests 01/31/25 09:00 01/30/25 06:06 Test 01/31/25 09:00 Range/Units Serum Glucose 86 74-106 mg/dL Problem List/Assessment/Plan Problem List/Assessment/Plan 01/20/25 69 YEAR OLD FEMALE WITH ANEMIA AND CT REPORTED POSSIBLE CECAL MASS. AWAITING COLONOSCOPY, CONVERSATION WITH PATIENT, NO EXAMINATION, HAVE EXPLAINED PROCESS AND POSSIBLE OPERATION DEPENDING ON FINDINGS. CONSULT WILL FOLLOW COLONOSCOPY. 01/23/25 DR CAMARA DID A COLONOSCOPY FOLLOWING WHICH SHE RELATED TO ME HER FINDINGS" NO CECAL MASS, APPENDICEAL OPENING INVERTED AND ERYTHEMATOUS, BIOPSIES TAKEN" I WILL REQUEST AND MRI TO R/O APPENDICEAL TUMOR, IF NEGATIVE MAY SUGGEST LAPAROSCOPIC APPENDECTOMY, IF POSITIVE PT WILL NEED RIGHT HEMICOLECTOMY. 01/24/25 MRI SCAN RESULTS DISCUSSED AND EXPLAINED TO PATIENT AND FAMILY AT BEDSIDE. WILL PROCEED WITH OPEN OPERATION AND PROBABLY RIGHT HEMICOLECTOMY TOMORROW. PROCEDURE RISKS AND COMPLICATIONS EXPLAINED IN DETAIL, ALL QUESTIONS ANSWERED 01/26/25 OPERATIVE FINDINGS WERE DISCUSSED WITH PATIENT, EXPLAINED THAT TO ME THE MASS APPEARED INFLAMMATION ADN CHRONIC INFECTION BUT WE WILL HAVE TO WAIT FOR THE REPORT FROM THE PATHOLOGIST FOR DEFINITIVE DIAGNOSIS. ABDOMEN IS APPROPRIATELY TENDER, WOUND CLEAN AND WELL APPROXIMATED, SHE NEEDS TO AMBULATE 01/28/25 doinf well, ambulated, no nausea, no flatus or bm, abdomen appropriately tender, wound clean and well approximates 01/29/25 "NGT CAME OUT", she has not passed flatus, abdomen non distended, wound ok, keep npo am,bulate q 4 hours, i must be notified if she becomes nauseated or distended! 01/31/25 passed flatus, abdomen non distended, wound ok, will allow po intake and she can go home tomorrow Plan discussed with: Patient Dietary Evaluation Review Comments: 1) Consider TPN per pharmacy 2) Advance diet as medically feasible 3) Monitor NPO status, lab values, weight trend, and I/O Expected Outcomes/Goals: To meet >75% estimated needs GI symptoms to improve Fu 2-3 days DEMETRICE MATT MD Jan 31, 2025 10:44
--- NOTE | 2025-01-31 11:19 | DVH ---
Technique: Real-time ultrasound imaging, with color Doppler and compression of the left upper extre mity veins. Indication: LEFT HAND SWELLING Comparison: None Findings: The left internal jugular, subclavian, axillary veins demonstrate no filling defect. Left shoulder fluid collection measuring 3.9 x 1.0 cm. The left brachial, basilic, radial and ulnar veins demonstrate no filling defect. Left cephalic vein compressible and contains occlusive thrombus. Impression: Occlusive superficial vein thrombosis of the left cephalic vein. Left shoulder fluid collection measuring 3.9 cm. Correlate clinically .
--- NOTE | 2025-01-31 11:22 | DVHPN2 ---
Progress Note Date Seen: Jan 31, 2025 Resident Creating Document: JAMES GARCIA RESIDENT Medical Necessity Reason Pt with a Central, PICC or Fol: No Subjective Review of Systems 69-year-old female with past medical history of hiatal hernia repair 1 year ago in [place], SLE in remission, hypertension, hyperlipidemia, fibromyalgia, degenerative disc disease and chronic back pain, who initially came to the ER due to semi-solid tarry black stools. CT abdomen pelvis showed 3.6 x 3.4 x 3.5 cm questionable mass at the cecum with cecal inflammation, mild right hydronephrosis without stone seen. Patient subsequently underwent exploratory laparotomy with right hemicolectomy, shortly after patient continued to have NG tube with continuous suction, however, eventually became unable to tolerate a clear liquid diet requiring continuation of NG tube along with NPO. Patient seen and examined at bedside today Has passed gas but has not had a bowel movement yet Positive bowel sounds 100 cc serosanguineous drainage in the RICKY drain Ambulating appropriately Advanced to a clear liquid diet Objective vital signs Vital Sign Date Time Temp Pulse Resp B/P (MAP) Pulse Ox O2 Delivery O2 Flow Rate FiO2 01/31/25 09:00 98.0 62 18 178/86 (116) 96 98.0 01/31/25 07:50 Room Air* 0 21 Total Intake and Output 01/30/25 01/30/25 01/31/25 15:00 23:00 07:00 Intake Total 603 ml 250 ml 378 ml Output Total 75 ml 75 ml 1600 ml Balance 528 ml 175 ml -1222 ml medications Current Medications Medications Dose Ordered Sig/Lilian Route Start Time Stop Time Status Last Admin Dose Admin Acetaminophen 500 mg Q4HPRN PRN PO 01/19/25 10:00 Cefazolin Sodium 50 ml @ 100 mls/hr Q8H IV 01/25/25 13:00 01/31/25 05:15 100 MLS/HR Metronidazole 100 ml @ 100 mls/hr Q8HR IV 01/25/25 14:00 01/31/25 06:04 100 MLS/HR Hydromorphone HCl 1 mg Q3HPRN PRN IV 01/25/25 09:00 01/31/25 03:49 1 MG Pantoprazole Sodium 40 mg DAILY IV 01/25/25 10:00 01/31/25 09:57 40 MG Ondansetron HCl 4 mg Q4HP PRN PO 01/25/25 18:00 Ondansetron HCl 4 mg Q4HPRN PRN IV 01/26/25 00:30 01/31/25 03:43 4 MG Enoxaparin Sodium 40 mg DAILY SC 01/27/25 10:00 Amino Acids 0 ml @ 0 mls/hr PER PHARMACY IV 01/28/25 10:15 Diagnostic Test (Pha) 1 strip Q6HR 01/29/25 00:00 01/30/25 17:15 1 STRIP Insulin Human Regular FOLLOW SLIDING SCALE Q6HR SC 01/29/25 00:00 Dextrose 50 ml UD IV 01/29/25 00:00 Amino Acids/ Electrolytes/ Dextrose 1,000 ml @ 41 mls/hr DAILY@2200 IV 01/28/25 22:00 01/29/25 21:29 41 MLS/HR Tamsulosin HCl 0.4 mg QPM PO 01/31/25 18:00 Examination General Appearance: Cooperative. Well developed. Well nourished. NAD Head Exam: Normal inspection Neck Exam: Normal inspection. Non-tender. Normal alignment Pulmonary/Respiratory: Chest non-tender. Clear bilateral breath sounds, no crackles, no wheezing. Cardiovascular/Chest: Regular rate and rhythm. No murmurs. No JVD. Peripheral Pulses: 2+ Radial (R). 2+ Radial (L). 2+ Pedal (R). 2+ Pedal (L) Abdominal Exam: Normal bowel sounds. Soft. normal abdomen, no visible veins, Nontender. Vertical surgical scar, clean and dry. RICKY drain 60 mL serosanguineous output overnight. Neuro/Mental Status: A&O x4. Coherent. Skin Exam: Normal inspection. Normal color. Warm. 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 [id number] tortuosity of the colon. Black stools, melena Urinary retention with right-sided hydronephrosis History of SLE, in remission History of colonic polyps with unknown pathology results Internal hemorrhoids Plan: NPO We recommend decreasing dose of narcotics to facilitate bowel movement Continue IV fluids Advanced to a clear liquid diet Continue antibiotics IV Protonix Awaiting final pathology results, patient aware NG tube came out, primary team plan to hold NG tube placement as patient having minimal nausea Encourage out of bed to chair, physical therapy can be initiated Thank you so much for the opportunity to consult on your patient. GI team will follow the patient. In case of any questions or concerns please feel free to reach out. Plan discussed with Dr. Hoffman Plan discussed with: Patient, Other (RN) Dietary Evaluation Review Comments: 1) Consider TPN per pharmacy 2) Advance diet as medically feasible 3) Monitor NPO status, lab values, weight trend, and I/O Expected Outcomes/Goals: To meet >75% estimated needs GI symptoms to improve Fu 2-3 days JAMES GARCIA RESIDENT Jan 31, 2025 11:22
[2025-01-31] MEDS: hydrALAZINE HCL 20 MG/ML VL IV ONE (15:47)
--- NOTE | 2025-01-31 15:49 | DVHPN2 ---
Subjective Patient doing well, no pain, seen at bedside today Reviewed: Care Plan Changes from previous H/P or p: No Changes General: Per HPI Gastrointestinal: Abdominal Pain, Constipation, Melena Objective Vitals Vital Signs Date Time Temp Pulse Resp B/P (MAP) Pulse Ox O2 Delivery O2 Flow Rate FiO2 01/31/25 15:20 66 18 174/67 01/31/25 13:00 98.2 97 98.2 01/31/25 07:50 Room Air* 0 21 Intake/Output Intake and Output 01/31/25 07:00 Intake Total 1231 ml Output Total 1750 ml Balance -519 ml Intake Oral 0 ml IV Total 1231 ml Output Urine Total 1500 ml Drainage Total 250 ml Exam GEN: Healthy appearing, well-developed, NAD. HEENT: NC/AT; MMM. CV: RRR, no m/r/g. LUNGS: CTAB, no w/r/c. ABD: Soft, NT/ND, NBS, no masses or organomegaly. Midline vertical abdominal score, infraumbilical with serosanguineous output, J tube is with bilious output. EXT: skin Warm, well perfused. no rashes. No clubbing, cyanosis, or edema. NEURO: Ambulating with no limitations. No focal deficits. General Appearance: Alert, Oriented X3, No acute distress Lungs: Clear to auscultation, Normal air movement, Other Cardiovascular: Regular rate, Normal S1, Normal S2, No murmurs, Gallops, Rubs, Other Abdomen: Normal bowel sounds, Soft, No tenderness, No hepatospenomegaly, No masses, Other Medications Current Medications Medications Dose Ordered Sig/Lilian Route Start Time Stop Time Status Last Admin Dose Admin Acetaminophen 500 mg Q4HPRN PRN PO 01/19/25 10:00 Cefazolin Sodium 50 ml @ 100 mls/hr Q8H IV 01/25/25 13:00 01/31/25 14:50 100 MLS/HR Metronidazole 100 ml @ 100 mls/hr Q8HR IV 01/25/25 14:00 01/31/25 14:50 100 MLS/HR Hydromorphone HCl 1 mg Q3HPRN PRN IV 01/25/25 09:00 01/31/25 14:50 1 MG Pantoprazole Sodium 40 mg DAILY IV 01/25/25 10:00 01/31/25 09:57 40 MG Ondansetron HCl 4 mg Q4HP PRN PO 01/25/25 18:00 Ondansetron HCl 4 mg Q4HPRN PRN IV 01/26/25 00:30 01/31/25 03:43 4 MG Enoxaparin Sodium 40 mg DAILY SC 01/27/25 10:00 Amino Acids 0 ml @ 0 mls/hr PER PHARMACY IV 01/28/25 10:15 Diagnostic Test (Pha) 1 strip Q6HR 01/29/25 00:00 01/30/25 17:15 1 STRIP Insulin Human Regular FOLLOW SLIDING SCALE Q6HR SC 01/29/25 00:00 Dextrose 50 ml UD IV 01/29/25 00:00 Amino Acids/ Electrolytes/ Dextrose 1,000 ml @ 41 mls/hr DAILY@2200 IV 01/28/25 22:00 01/29/25 21:29 41 MLS/HR Tamsulosin HCl 0.4 mg QPM PO 01/31/25 18:00 Nifedipine 60 mg DAILY PO 02/01/25 10:00 Laboratory Results Laboratory Tests 01/30/25 06:06 01/31/25 09:00 Chemistry Test 01/31/25 09:00 Albumin 3.6 g/dL (3.2-4.8) Calcium Level 8.5 mg/dL (8.7-10.4) L Magnesium Level 1.7 mg/dL (1.6-2.6) Phosphorus Level 2.9 mg/dL (2.4-5.1) Total Protein 5.7 g/dL (5.7-8.2) LFT Test 01/31/25 09:00 Alanine Aminotransferase (ALT) < 9 U/L (7-40) Alkaline Phosphatase 63 U/L (46-116) Aspartate Amino Transferase (AST) 11 U/L (13-40) L Total Bilirubin 0.3 mg/dL (0.2-1.0) Urinalysis Test 01/19/25 06:16 Urine Color Light-yellow (Yellow) Urine Clarity Clear (Clear) Urine pH 6.5 (5.0-9.0) Urine Specific [place] 1.010 (1.001-1.035) Urine Protein Negative (Negative) Urine Ketones Negative (Negative) Urine Blood Negative /uL (Negative) Urine Nitrite Negative (Negative) Urine Bilirubin Negative (Negative) Urine Urobilinogen Normal mg/dL (Negative) Urine Leukocyte Esterase Negative /uL (Negative) Urine RBC <1 /hpf (0 - 4) Urine Microscopic WBC 1 /HPF (0-5) Urine Squamous Epithelial Cells Few /hpf (<5) Urine Bacteria None seen /hpf (None Seen) Urine Glucose Normal mg/dL (Normal) Labs and/or images reviewed: Labs reviewed by me, Image(s) reviewed by me Assessment/Plan Assessment/Plan Ms Carrasquillo is a 69-year-old female with hiatal hernia repair 1 year back, SLE in remission, hypertension, hyperlipidemia fibromyalgia, degenerative disc disease and chronic back pain, neuropathic, who presented to the ER with a chief complaint of semi-solid tarry black stools for the past 4 days along with weight loss for the past 3 weeks. Patient reports lower abdominal diffuse pain for the past 3 weeks, crampy in nature, she also had a urinary infection 2 weeks back, patient thought it was a flu infection, but she developed generalized weakness, fatigue, low appetite and weight loss of about 8 lb in the past 3 weeks. She has a history of chronic constipation, reports noticing tarry black stools for the past 4-5 days, she reports low-grade fever and chills 1 week back. No recent travel history or sick contacts Patient had hiatal hernia surgery 1 year back [facility] [place] Last colonoscopy was April 20, 2023, 1 8 mm polyp in the ascending colon, 1 3 mm polyp in the rectum, nonbleeding internal hemorrhoids, patient is unaware of pathology results 01/21: Patient doing well, no further bloody bowel movements. Patient is anxious about the comment of mass on CT. Likely rectosigmoidoscopy tomorrow with GI. 01/22: Patient is likely going to OR today for GI procedure. Otherwise doing well. 01/23: GI report had inversion/protrusion of appendix, GI had updated surgery. Surgery is getting MRI appendix today. We will follow up with surgery for care plan after imaging. All cancer marker levels were negative (CEA, CA 125, CA 19/9). 01/24: MRI was concerning for mass in cecum/appendix seal region. Surgery aware and wants to take for OR for ascending hemicolectomy, patient is NPO and NPO midnight until surgery. 01/25: pt taken for likely hemicolectomy today. surgery to determine diet plan after surgery patient.. Patient doing well after surgery tolerance very well, there was some bradycardia after surgery cardiology was consulted. After surgery patient is NPO NG tube on continuous suction, she has maintenance IV fluids per surgery. Patient to be stabilized over weekend as postop stabilization. Continuing IV antibiotics. 01/28: Over weekend patient not tolerating clear liquid diet converted to NPO, continue NG tube. Made NPO yesterday. No good intake for 3 days, today we will encourage ambulation, remove Christy, start PPN, intermittent IV fluids for hydration. Waiting for passing gas to advanced towards discharge plan 01/29: Patient doing well, Christy was removed yesterday but patient has started to develop retention again in Christy was reinserted. 300 cc was found on bladder scan before reinsertion. Continuing IV antibiotics. NG tube fell out but she has no nausea, bowel sounds present but still not passing gas. Surgery is updated. We will hold off reinserting NG tube unless nausea develops. GI following, appreciate surgical and GI follow up. stephanie drain with scant serosanguineous output. Incision healing well. 01/30: Patient without nausea, NG tube remaining out, no abdominal distention, continuous ambulating. Unable to give Flomax as patient is NPO and Christy remains inserted the patient continues to ambulate. Patient is ABX frustrated with slow progress, continues to have bowel sounds but still no passing gas. Surgery aware and following. STEPHANIE with scant output. 01/31: Patient passed gas yesterday, advance diet today. Tolerating clear liquid diet, will advance to full liquid diet. Surgery following. Blood pressure very high hypotensive, starting Procardia 60 and we will keep advancing as needed.. Stops Clinimix. Patient left hand was swollen ultrasound done DVT positive for superficial vein thrombosis in the left cephalic vein, we will do warm compressions on site (NO eliquis/Lovenox etc). Patient asking for pathology report we will check. Diagnosis: Lower GI bleed, rule out active bleed Cecal mass 3 x 3 cm Internal hemorrhoids History of colonic and rectal polyps Superficial vein thrombosis left cephalic Nonbleeding internal hemorrhoids history of descending colon 8 mm and rectal 3 mm polyp-path results unknown Unintentional weight loss Generalized weakness Chronic constipation Right-sided hydronephrosis Hypertension History of dyslipidemia History of fibromyalgia History of degenerative disc disease and neuropathic pain History of SLE-in remission Plan: - Plan for GI to take for colonoscopy /sigmoidoscopy on 01/22 or 01/23. -CT abdomen with IV contrast showed 3.6 x 3.4 x 3.5 cm questionable mass at the cecum with cecal inflammation. -MRI concerning for cecal/appendiceal mass. -Hemicolectomy 01/25 - colonoscopy concerning for inverted appendix stump. Biopsy taken. Start Procardia XL 60 -IV Protonix -advance diet clear liquid diet to full liquid diet, advance further as needed -IV fluids -continue other home medications, Lipitor. Hold home hydrochlorothiazide - hold anticoagulation as risk for bleed. Med surge Full code Plan discussed with: Patient My Orders Orders - SENDY FARRELL MD Procedure Category Date Status Time Lt Upper Dvt US 01/31/25 Resulted 10:15 Comprehensive LAB 02/01/25 Verified Metabolic Panel 05:00 Magnesium LAB 02/01/25 Verified 05:00 Phosphorus LAB 02/01/25 Verified 05:00 Clinimix Per Pharmacy [facility] 01/31/25 In Process 22:00 Nifedipine Er PHA 02/01/25 In Process (Procardia Xl 10:00 Date of Service: Jan 31, 2025 Billing Provider: SENDY FARRELL MD Common Visit Codes: [id number] INP/OBS CARE(HIGH) SENDY FARRELL MD Jan 31, 2025 15:49
[2025-01-31] MEDS: TAMSULOSIN HYDROCHLORIDE 0.4 MG CAP PO SCH (17:18)
[2025-01-31] MEDS: APIXABAN 2.5 MG TAB PO SCH (21:44)
[2025-02-01 01:00] VITALS: BP 119/66; PULSE 101; RESP 18; TEMP 98; O2SAT 93
[2025-02-01 05:00] VITALS: BP 112/64; PULSE 88; RESP 18; TEMP 98; O2SAT 96
[2025-02-01 08:00] VITALS: PULSE 82; PULSE 88; RESP 20; O2SAT 95
--- NOTE | 2025-02-01 08:16 | DVHPN2 ---
Progress Note Date Seen: Feb 01, 2025 Medical Necessity Reason Pt with a Central, PICC or Fol: No Objective vital signs Vital Sign Date Time Temp Pulse Resp B/P (MAP) Pulse Ox O2 Delivery O2 Flow Rate FiO2 02/01/25 05:00 98.0 88 18 112/64 (80) 96 98.0 01/31/25 20:00 Room Air* 0 21 Total Intake and Output 01/31/25 01/31/25 02/01/25 15:00 23:00 07:00 Intake Total 100 ml 1100 ml 550 ml Output Total 2350 ml 700 ml Balance 100 ml -1250 ml -150 ml medications Current Medications Medications Dose Ordered Sig/Lilian Route Start Time Stop Time Status Last Admin Dose Admin Acetaminophen 500 mg Q4HPRN PRN PO 01/19/25 10:00 Cefazolin Sodium 50 ml @ 100 mls/hr Q8H IV 01/25/25 13:00 02/01/25 05:19 100 MLS/HR Metronidazole 100 ml @ 100 mls/hr Q8HR IV 01/25/25 14:00 02/01/25 05:19 100 MLS/HR Hydromorphone HCl 1 mg Q3HPRN PRN IV 01/25/25 09:00 02/01/25 02:54 1 MG Pantoprazole Sodium 40 mg DAILY IV 01/25/25 10:00 01/31/25 09:57 40 MG Ondansetron HCl 4 mg Q4HP PRN PO 01/25/25 18:00 Ondansetron HCl 4 mg Q4HPRN PRN IV 01/26/25 00:30 01/31/25 03:43 4 MG Enoxaparin Sodium 40 mg DAILY SC 01/27/25 10:00 Tamsulosin HCl 0.4 mg QPM PO 01/31/25 18:00 01/31/25 17:18 0.4 MG Nifedipine 60 mg DAILY PO 02/01/25 10:00 Apixaban 2.5 mg BID PO 01/31/25 22:00 02/12/25 21:59 01/31/25 21:44 2.5 MG laboratory and microbiology Laboratory Tests 01/31/25 09:00 01/30/25 06:06 Test 01/31/25 09:00 Range/Units Serum Glucose 86 74-106 mg/dL Problem List/Assessment/Plan Problem List/Assessment/Plan 01/20/25 69 YEAR OLD FEMALE WITH ANEMIA AND CT REPORTED POSSIBLE CECAL MASS. AWAITING COLONOSCOPY, CONVERSATION WITH PATIENT, NO EXAMINATION, HAVE EXPLAINED PROCESS AND POSSIBLE OPERATION DEPENDING ON FINDINGS. CONSULT WILL FOLLOW COLONOSCOPY. 01/23/25 DR CAMARA DID A COLONOSCOPY FOLLOWING WHICH SHE RELATED TO ME HER FINDINGS" NO CECAL MASS, APPENDICEAL OPENING INVERTED AND ERYTHEMATOUS, BIOPSIES TAKEN" I WILL REQUEST AND MRI TO R/O APPENDICEAL TUMOR, IF NEGATIVE MAY SUGGEST LAPAROSCOPIC APPENDECTOMY, IF POSITIVE PT WILL NEED RIGHT HEMICOLECTOMY. 01/24/25 MRI SCAN RESULTS DISCUSSED AND EXPLAINED TO PATIENT AND FAMILY AT BEDSIDE. WILL PROCEED WITH OPEN OPERATION AND PROBABLY RIGHT HEMICOLECTOMY TOMORROW. PROCEDURE RISKS AND COMPLICATIONS EXPLAINED IN DETAIL, ALL QUESTIONS ANSWERED 01/26/25 OPERATIVE FINDINGS WERE DISCUSSED WITH PATIENT, EXPLAINED THAT TO ME THE MASS APPEARED INFLAMMATION ADN CHRONIC INFECTION BUT WE WILL HAVE TO WAIT FOR THE REPORT FROM THE PATHOLOGIST FOR DEFINITIVE DIAGNOSIS. ABDOMEN IS APPROPRIATELY TENDER, WOUND CLEAN AND WELL APPROXIMATED, SHE NEEDS TO AMBULATE 01/28/25 doinf well, ambulated, no nausea, no flatus or bm, abdomen appropriately tender, wound clean and well approximates 01/29/25 "NGT CAME OUT", she has not passed flatus, abdomen non distended, wound ok, keep npo am,bulate q 4 hours, i must be notified if she becomes nauseated or distended! 01/31/25 passed flatus, abdomen non distended, wound ok, will allow po intake and she can go home tomorrow 02/01/25 no nausea, no vomiting, passoing flatus, tolerating po liquids, ambulating, awaiting discharge. she may shower Plan discussed with: Patient Dietary Evaluation Review Comments: 1) Consider TPN per pharmacy 2) Advance diet as medically feasible 3) Monitor NPO status, lab values, weight trend, and I/O Expected Outcomes/Goals: To meet >75% estimated needs GI symptoms to improve Fu 2-3 days DEMETRICE MATT MD Feb 01, 2025 08:15
[2025-02-01 09:10] VITALS: BP 139/86; PULSE 107; RESP 20; TEMP 97.8; O2SAT 95
--- NOTE | 2025-02-01 11:21 | DVHPN2 ---
Progress Note Date Seen: Feb 01, 2025 Resident Creating Document: JAMES GARCIA RESIDENT Medical Necessity Reason Pt with a Central, PICC or Fol: No Subjective Review of Systems 69-year-old female with past medical history of hiatal hernia repair 1 year ago in [place], SLE in remission, hypertension, hyperlipidemia, fibromyalgia, degenerative disc disease and chronic back pain, who initially came to the ER due to semi-solid tarry black stools. CT abdomen pelvis showed 3.6 x 3.4 x 3.5 cm questionable mass at the cecum with cecal inflammation, mild right hydronephrosis without stone seen. Patient subsequently underwent exploratory laparotomy with right hemicolectomy, shortly after patient continued to have NG tube with continuous suction, however, eventually became unable to tolerate a clear liquid diet requiring continuation of NG tube along with NPO. Patient seen and examined at bedside today Continues to pass gas, no bowel movement yet Minimal to no output in the RICKY drain Objective vital signs Vital Sign Date Time Temp Pulse Resp B/P (MAP) Pulse Ox O2 Delivery O2 Flow Rate FiO2 02/01/25 09:12 139/86 02/01/25 09:10 97.8 107 20 95 97.8 02/01/25 08:00 Room Air* 0 21 Total Intake and Output 01/31/25 01/31/25 02/01/25 15:00 23:00 07:00 Intake Total 100 ml 1100 ml 550 ml Output Total 2350 ml 700 ml Balance 100 ml -1250 ml -150 ml medications Current Medications Medications Dose Ordered Sig/Lilian Route Start Time Stop Time Status Last Admin Dose Admin Acetaminophen 500 mg Q4HPRN PRN PO 01/19/25 10:00 Cefazolin Sodium 50 ml @ 100 mls/hr Q8H IV 01/25/25 13:00 02/01/25 05:19 100 MLS/HR Metronidazole 100 ml @ 100 mls/hr Q8HR IV 01/25/25 14:00 02/01/25 05:19 100 MLS/HR Hydromorphone HCl 1 mg Q3HPRN PRN IV 01/25/25 09:00 02/01/25 02:54 1 MG Pantoprazole Sodium 40 mg DAILY IV 01/25/25 10:00 02/01/25 09:13 40 MG Ondansetron HCl 4 mg Q4HP PRN PO 01/25/25 18:00 Ondansetron HCl 4 mg Q4HPRN PRN IV 01/26/25 00:30 01/31/25 03:43 4 MG Enoxaparin Sodium 40 mg DAILY SC 01/27/25 10:00 Tamsulosin HCl 0.4 mg QPM PO 01/31/25 18:00 01/31/25 17:18 0.4 MG Nifedipine 60 mg DAILY PO 02/01/25 10:00 02/01/25 09:12 60 MG Apixaban 2.5 mg BID PO 01/31/25 22:00 02/12/25 21:59 02/01/25 09:12 2.5 MG Examination General Appearance: Cooperative. Well developed. Well nourished. NAD Head Exam: Normal inspection Neck Exam: Normal inspection. Non-tender. Normal alignment Pulmonary/Respiratory: Chest non-tender. Clear bilateral breath sounds, no crackles, no wheezing. Cardiovascular/Chest: Regular rate and rhythm. No murmurs. No JVD. Peripheral Pulses: 2+ Radial (R). 2+ Radial (L). 2+ Pedal (R). 2+ Pedal (L) Abdominal Exam: Normal bowel sounds. Soft. normal abdomen, no visible veins, Nontender. Vertical surgical scar, clean and dry. RICKY drain 60 mL serosanguineous output overnight. Neuro/Mental Status: A&O x4. Coherent. Skin Exam: Normal inspection. Normal color. Warm. 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 [id number] tortuosity of the colon. Black stools, melena Urinary retention with right-sided hydronephrosis History of SLE, in remission History of colonic polyps with unknown pathology results Internal hemorrhoids Plan: NPO We recommend decreasing dose of narcotics to facilitate bowel movement Continue IV fluids Advanced to full liquid diet, tolerating well Continue antibiotics IV Protonix Awaiting final pathology results, patient aware NG tube came out, primary team plan to hold NG tube placement as patient having minimal nausea Encourage out of bed to chair, physical therapy Possible discharge today Thank you so much for the opportunity to consult on your patient. GI team will follow the patient. In case of any questions or concerns please feel free to reach out. Plan discussed with Dr. Hoffman Plan discussed with: Patient, Other (RN) Dietary Evaluation Review Comments: 1) Consider TPN per pharmacy 2) Advance diet as medically feasible 3) Monitor NPO status, lab values, weight trend, and I/O Expected Outcomes/Goals: To meet >75% estimated needs GI symptoms to improve Fu 2-3 days JAMES GARCIA RESIDENT Feb 01, 2025 11:21
[2025-02-01 13:00] VITALS: BP 138/75; PULSE 78; RESP 20; TEMP 97.6; O2SAT 92
[2025-02-01] MEDS ORDERED: TAMS-35 PO (15:58)
[2025-02-01] MEDS ORDERED: NIFE1TAB30 PO (15:58)
[2025-02-01] MEDS ORDERED: HYDR-4798 PO (15:58)
--- NOTE | 2025-02-01 16:10 | DVHDS2 ---
Discharge Summary Date of Admission Jan 19, 2025 at 09:33 Date of Discharge: Feb 01, 2025 Labs/Diagnostic Data: Laboratory Results Test 01/31/25 09:00 01/31/25 05:46 01/30/25 06:06 01/29/25 05:52 Sodium Level 140 mmol/L (136-145) Potassium Level 3.6 mmol/L (3.5-5.1) Chloride Level 103 mmol/L (98-107) Carbon Dioxide Level 27 mmol/L (20-31) Anion Gap 10 (5-15) Blood Urea Nitrogen 5 mg/dL (9-23) Creatinine 0.45 mg/dL (0.550-1.02) Glomerular Filtration Rate Calc 105 mL/min (>90) BUN/Creatinine Ratio 11.1 (10.0-20.0) Serum Glucose 86 mg/dL (74-106) Calcium Level 8.5 mg/dL (8.7-10.4) Phosphorus Level 2.9 mg/dL (2.4-5.1) Magnesium Level 1.7 mg/dL (1.6-2.6) Total Bilirubin 0.3 mg/dL (0.2-1.0) Aspartate Amino Transferase (AST) 11 U/L (13-40) Alanine Aminotransferase (ALT) < 9 U/L (7-40) Alkaline Phosphatase 63 U/L (46-116) Total Protein 5.7 g/dL (5.7-8.2) Albumin 3.6 g/dL (3.2-4.8) POC Glucose 114 mg/dl (70-106) White Blood Count 6.2 10^3/uL (4.4-10.8) Red Blood Count 4.00 10^6/uL (4.0-5.20) Hemoglobin 12.6 g/dL (12.2-16.2) Hematocrit 36.1 % (36.0-46.0) Mean Corpuscular Volume 90.2 fL (80.0-100.0) Mean Corpuscular Hemoglobin 31.5 pg (28.0-32.0) Mean Corpuscular Hemoglobin Concent 34.9 g/dL (32.0-36.0) Red Cell Distribution Width 12.7 % (11.8-14.3) Platelet Count 427 10^3/uL (140-450) Mean Platelet Volume 8.2 fL (6.9-10.8) Neutrophils (%) (Auto) 67.1 % (37.0-80.0) Lymphocytes (%) (Auto) 20.5 % (10.0-50.0) Monocytes (%) (Auto) 8.3 % (0.0-12.0) Eosinophils (%) (Auto) 3.3 % (0.0-7.0) Basophils (%) (Auto) 0.8 % (0.0-2.0) Neutrophils # (Auto) 4.2 10 ^3/uL (1.6-8.6) Lymphocytes # (Auto) 1.3 10 ^3/uL (0.4-5.4) Monocytes # (Auto) 0.5 10 ^3/uL (0-1.3) Eosinophils # (Auto) 0.2 10 ^3/uL (0-0.8) Basophils # (Auto) 0 10 ^3/uL (0-0.2) Nucleated Red Blood Cells 0.0 % Estimated GFR () 162 mL/min Estimated GFR (Non- 134 mL/min Test 01/25/25 05:03 01/24/25 12:25 01/21/25 05:56 01/20/25 04:00 Prothrombin Time 10.9 sec (9.3-11.8) Prothrombin Time INR 1.03 (0.9-1.15) Activated Partial Thromboplast Time 26.4 SEC (24.5-34.5) Carcinoembryonic Antigen 0.62 ng/mL (<=5.0) Influenza Type A Antigen Negative (Negative) Influenza Type B Antigen Negative (Negative) SARS-CoV-2 Antigen (Rapid) Negative (NEGATIVE) Test 01/19/25 20:00 01/19/25 15:14 01/19/25 06:16 01/19/25 05:06 Stool Occult Blood Negative (Negative) Stool Occult Blood Sample #3 (Negative) Tumor Marker Alpha Fetoprotein <1.8 ng/mL (0.0-9.2) CA 19-9 Antigen 25 U/mL (0-35) CA 125 Antigen 13.3 U/mL (0.0-38.1) Urine Color Light-yellow (Yellow) Urine Clarity Clear (Clear) Urine pH 6.5 (5.0-9.0) Urine Specific [place] 1.010 (1.001-1.035) Urine Protein Negative (Negative) Urine Ketones Negative (Negative) Urine Blood Negative /uL (Negative) Urine Nitrite Negative (Negative) Urine Bilirubin Negative (Negative) Urine Urobilinogen Normal mg/dL (Negative) Urine Leukocyte Esterase Negative /uL (Negative) Urine RBC <1 /hpf (0 - 4) Urine Microscopic WBC 1 /HPF (0-5) Urine Squamous Epithelial Cells Few /hpf (<5) Urine Bacteria None seen /hpf (None Seen) Urine Glucose Normal mg/dL (Normal) Urine Opiates Screen Neg (NEGATIVE) Urine Fentanyl Screen Neg (NEGATIVE) Urine Barbiturates Screen Neg (NEGATIVE) Urine Phencyclidine Screen Neg (NEGATIVE) Urine Amphetamines Screen Neg (NEGATIVE) Urine Benzodiazepines Screen Neg (NEGATIVE) Urine Cocaine Screen Neg (NEGATIVE) Urine Cannabinoids Screen Neg (NEGATIVE) Hemoglobin A1c 5.4 % A1C (<5.7) Lipase 26 U/L (12-53) Vitamin B12 Level 1418 pg/mL (211-911) Vitamin D 25-Hydroxy 61.6 ng/mL (30.0-100) Thyroid Stimulating Hormone (TSH) 4.34 uIU/mL (0.55-4.78) Other Laboratory Tests 01/31/25 09:00 01/30/25 06:06 Brief Hx & Hospital Course: Ms Carrasquillo is a 69-year-old female with hiatal hernia repair 1 year back, SLE in remission, hypertension, hyperlipidemia fibromyalgia, degenerative disc disease and chronic back pain, neuropathic, who presented to the ER with a chief complaint of semi-solid tarry black stools for the past 4 days along with weight loss for the past 3 weeks. Patient reports lower abdominal diffuse pain for the past 3 weeks, crampy in nature, she also had a urinary infection 2 weeks back, patient thought it was a flu infection, but she developed generalized weakness, fatigue, low appetite and weight loss of about 8 lb in the past 3 weeks. She has a history of chronic constipation, reports noticing tarry black stools for the past 4-5 days, she reports low-grade fever and chills 1 week back. No recent travel history or sick contacts Patient had hiatal hernia surgery 1 year back [facility] [place] Last colonoscopy was April 20, 2023, 1 8 mm polyp in the ascending colon, 1 3 mm polyp in the rectum, nonbleeding internal hemorrhoids, patient is unaware of pathology results 01/21: Patient doing well, no further bloody bowel movements. Patient is anxious about the comment of mass on CT. Likely rectosigmoidoscopy tomorrow with GI. 01/22: Patient is likely going to OR today for GI procedure. Otherwise doing well. 01/23: GI report had inversion/protrusion of appendix, GI had updated surgery. Surgery is getting MRI appendix today. We will follow up with surgery for care plan after imaging. All cancer marker levels were negative (CEA, CA 125, CA 19/9). 01/24: MRI was concerning for mass in cecum/appendix seal region. Surgery aware and wants to take for OR for ascending hemicolectomy, patient is NPO and NPO midnight until surgery. 01/25: pt taken for likely hemicolectomy today. surgery to determine diet plan after surgery patient.. Patient doing well after surgery tolerance very well, there was some bradycardia after surgery cardiology was consulted. After surgery patient is NPO NG tube on continuous suction, she has maintenance IV fluids per surgery. Patient to be stabilized over weekend as postop stabilization. Continuing IV antibiotics. 01/28: Over weekend patient not tolerating clear liquid diet converted to NPO, continue NG tube. Made NPO yesterday. No good intake for 3 days, today we will encourage ambulation, remove Christy, start PPN, intermittent IV fluids for hydration. Waiting for passing gas to advanced towards discharge plan 01/29: Patient doing well, Christy was removed yesterday but patient has started to develop retention again in Christy was reinserted. 300 cc was found on bladder scan before reinsertion. Continuing IV antibiotics. NG tube fell out but she has no nausea, bowel sounds present but still not passing gas. Surgery is updated. We will hold off reinserting NG tube unless nausea develops. GI following, appreciate surgical and GI follow up. stephanie drain with scant serosanguineous output. Incision healing well. 01/30: Patient without nausea, NG tube remaining out, no abdominal distention, continuous ambulating. Unable to give Flomax as patient is NPO and Christy remains inserted the patient continues to ambulate. Patient is ABX frustrated with slow progress, continues to have bowel sounds but still no passing gas. Surgery aware and following. STEPHANIE with scant output. 01/31: Patient passed gas yesterday, advance diet today. Tolerating clear liquid diet, will advance to full liquid diet. Surgery following. Blood pressure very high hypotensive, starting Procardia 60 and we will keep advancing as needed.. Stops Clinimix. Patient left hand was swollen ultrasound done DVT positive for superficial vein thrombosis in the left cephalic vein, we will do warm compressions on site (NO eliquis/Lovenox etc). Patient asking for pathology report we will check. 02/01- patient has passed gas, tolerating diet full liquid diet well. Patient pain controlled, Christy removed and urinating. Blood pressure controlled. Patient is stable for discharge as per plan below. 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 Lower GI bleed, ruled out active bleed Internal hemorrhoids History of colonic and rectal polyps Superficial vein thrombosis left cephalic Nonbleeding internal hemorrhoids history of descending colon 8 mm and rectal 3 mm polyp-path results unknown Unintentional weight loss Generalized weakness Chronic constipation Right-sided hydronephrosis Hypertension History of dyslipidemia History of fibromyalgia History of degenerative disc disease and neuropathic pain History of SLE - in remission discharge plan: - Nifedipine ER 60 mg once daily - full liquid diet 1 week, advance thereafter - Flomax 0.4 mg daily, May only need use for 1 month and reassess thereafter - For pain use Tylenol 1st line, second-line ibuprofen, 3rd line can use prescription [place] 10 up to 3 times daily - Follow up with the surgery, surgery to remove STEPHANIE drain in follow up appointment and removed sutures possibly - Follow up with GI to discuss colonoscopy results - Follow up with PCP to review discharge - Continue other home medications not mentioned above Condition at Discharge: Fair Final Diagnosis/Problems List 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 Lower GI bleed, ruled out active bleed Internal hemorrhoids History of colonic and rectal polyps Superficial vein thrombosis left cephalic Nonbleeding internal hemorrhoids history of descending colon 8 mm and rectal 3 mm polyp-path results unknown Unintentional weight loss Generalized weakness Chronic constipation Right-sided hydronephrosis Hypertension History of dyslipidemia History of fibromyalgia History of degenerative disc disease and neuropathic pain History of SLE - in remission Discharge Disposition: Home Discharge Instruct/Medications Diet: See Comment Diet comment: Full liquid diet Activity: No Restrictions, As Tolerated Follow Up/Referral: See below Medications: See below Scheduled Atorvastatin Calcium (Lipitor), 1 TAB PO DAILY, (Reported) Docusate Sodium (Colace), 100 CAP PO BID, (Reported) Hydrochlorothiazide (Hydrochlorothiazide), 1 CAP PO DAILY, (Reported) Magnesium Oxide (Magnesium Oxide), 1 TAB PO DAILY, (Reported) Nifedipine (Nifedipine Er), 1 TAB PO DAILY Tamsulosin Hcl (Flomax), 1 CAP PO DAILY Scheduled PRN Hydrocodone-Acetaminophen (Hydrocodone Bitartrate/AC 10-325 mg), 1 TAB PO TIDP PRN Miscellaneous Medications Cholecalciferol (D3), 50 MCG PO, (Reported) Cyanocobalamin (B12), 1,000 MCG PO, (Reported) Milk Thistle (Silybum Marianum (Milk Thistle), 1,000 MG OR, (Reported) Phytonadione (Vitamin K), 100 MCG PO, (Reported) Discharge Statement: "Patient was advised to return to the ER or call 911 if any headaches, dizziness, shortness of breath, chest pain, abdominal pain, bleeding, fevers, or worsening of medical condition. Patient was counseled about treatment plan, medications, possible side effects, patientverbalized understanding. All questions were answered to the best of my ability. This discharge took greater then 30 minutes in planning, reviewing documentation, counseling the patient, and discussing with other team members." Date of Service: Feb 01, 2025 Billing Provider: SENDY FARRELL MD Common Visit Codes: 31391-QTY/OBS DISCH DAY >30min SENDY FARRELL MD Feb 01, 2025 16:10
[2025-02-01 16:37] VITALS: BP 151/85; PULSE 84; RESP 18; TEMP 97.8; O2SAT 94
== END 2025-02-01 18:30 | disposition home or self-care (01) | DRG 330 ==
LOC: ER 04:24 → OVERFLOW 09:33 → WEST WING 17:01 → TELE-WESTW 01-26 00:55
PROVIDERS: ADMIT Student in an Organized Health Care Education/Training Program; ATTEND Student in an Organized Health Care Education/Training Program
PROC: 0DBJ8ZX Excision of Appendix, Via Natural or Artificial Opening Endoscopic, Diagnostic (ICD-10-PCS; 2025-01-22)
PROC: 0DTF0ZZ Resection of Right Large Intestine, Open Approach (ICD-10-PCS; principal; 2025-01-25 07:32)
PROC: 05HB33Z Insertion of Infusion Device into Right Basilic Vein, Percutaneous Approach (ICD-10-PCS; 2025-01-30)
PROC: B54MZZA Ultrasonography of Right Upper Extremity Veins, Guidance (ICD-10-PCS; 2025-01-30)
DX: D12.0 Benign neoplasm of cecum (principal); I82.612 Acute embolism and thrombosis of superficial veins of left upper extremity; N13.30 Unspecified hydronephrosis; K64.8 Other hemorrhoids; Z20.822 Contact with and (suspected) exposure to COVID-19; K63.9 Disease of intestine, unspecified; R33.9 Retention of urine, unspecified; K59.09 Other constipation; I10 Essential (primary) hypertension; E78.5 Hyperlipidemia, unspecified; G89.29 Other chronic pain; R63.4 Abnormal weight loss; Z87.891 Personal history of nicotine dependence; Z80.0 Family history of malignant neoplasm of digestive organs; Z80.49 Family history of malignant neoplasm of other genital organs; Z86.0100 Personal history of colon polyps, unspecified; Z79.899 Other long term (current) drug therapy; Z90.710 Acquired absence of both cervix and uterus; Z68.27 Body mass index [BMI] 27.0-27.9, adult
CPT/HCPCS: 36415; 45380; 71045; 72195; 74177; 74181; 80048; 80053; 80069; 80307; 81001; 82105; 82270; 82306; 82378; 82607; 82962; 83036; 83690; 83735; 84100; 84443; 85025; 85610; 85730; 86301; 86304; 86850; 86900; 86901; 87426; 87804; 93005; 93306; 93971; 96360; 97110; 97116; 97163; 97530; G0378; J0131; J0330; J1885; J2250; J2405; J2470; J2704; J3480; J3490